=== PATIENT | male | born 1950 | race Caucasian/White ===

== ENCOUNTER 2020-08-07 19:30 | Inpatient (IN) | payer MEDICARE, OTHER ==
[2020-08-07 20:16] LABS: #Eosinphils 0.2 thou/uL (0.0-0.7); #Lymphocytes 0.9 thou/uL (1.20-3.40); #Monocytes 0.4 thou/uL (0.11-0.59); #Neutrophils 5.8 thou/uL (1.40-6.50); %Basophils 0.2 % (0.0-1.0); %Eosinophils 2.7 % (0.0-10.0); %Lymphocytes 12.7 % (21.0-51.0); %Monocytes 4.8 % (0.0-10.0); %Neutrophils 79.7 % (42.0-75.0); Hemoglobin 12.1 g/dL (14.0-18.0); Mean Corpuscular HGB CONC 33.2 g/dL (32.0-36.0); Mean Corpuscular Hemoglobin 29.7 pg (27.0-31.0); Mean Corpuscular Volume 89.5 fL (78.0-98.0); Mean Platelet Volume 10.1 fL (7.4-10.4); Platelet Count 244 thou/uL (130-400); RBC Distribution Width 14.2 % (11.5-14.5); Red Blood Cell (RBC) Count 4.09 mill/uL (4.70-6.10); White Blood Cell (WBC) Count 7.3 thou/uL (4.8-10.8)
[2020-08-07 20:22] LABS: INR-International Normal Ratio 1.1; PTT 34.1 sec (22.9-36.1); Prothrombin Time 14.5 sec (12.0-14.7)
[2020-08-07 20:32] LABS: ALT (SGPT) 36 U/L (8-55); AST (SGOT) 24 U/L (5-34); Albumin 3.6 g/dL (3.4-4.8); Alkaline Phosphatase 100 U/L (40-110); Anion Gap 16 mmol/L (10-20); BUN (Urea Nitrogen) 16 mg/dL (8.4-25.7); Bilirubin, Total 0.6 mg/dL (0.2-1.2); Calc. Creatinine Clearance 0 mL/min (70-130); Calcium 9.3 mg/dL (7.8-10.44); Carbon Dioxide 17 mmol/L (23-31); Chloride 108 mmol/L (98-107); Glucose 122 mg/dL (80-115); Lipase 39 U/L (8-78); Potassium 4.4 mmol/L (3.5-5.1); Protein, Total 6.6 g/dL (5.8-8.1); Sodium 137 mmol/L (136-145)
[2020-08-07 20:58] LABS: CKMB 2.1 ng/mL (0-6.6)
[2020-08-07] MEDS ORDERED: Dextrose 5% in Water 1,000 ML IV PRN (23:16)
[2020-08-07] MEDS ORDERED: Dextrose 50% Abboject 50 ML SYRINGE SLOW IVP PRN (23:16)
[2020-08-07] MEDS ORDERED: Ondansetron PF 4 MG/2 ML Vial IVP PRN (23:16)
[2020-08-07] MEDS ORDERED: Acetaminophen 325 MG TAB ONE (23:44)
[2020-08-07] MEDS ORDERED: Sodium Bicarbonate Tab 325 MG TAB PO SCH (23:45)
[2020-08-07] MEDS ORDERED: HYDROmorphone 0.5 MG/0.5 ML SYRINGE SLOW IVP SCH (23:45)
[2020-08-07] MEDS ORDERED: Aspirin Chewable 81 MG TAB PO SCH (23:45)
[2020-08-07] MEDS ORDERED: Furosemide 40 MG/4 ML VIAL SLOW IVP SCH (23:45)
[2020-08-07 23:50] LABS: Troponin I 1.153 ng/mL (< 0.028)
[2020-08-08] MEDS: Nitroglycerin 2% Ointment 1 INCH/1 GM Packet TOP SCH ×4 (01:24→23:52)
[2020-08-08 02:36] LABS: Creatinine, Urine 39.28 mg/dL (63-166)
[2020-08-08 03:15] LABS: #Basophils 0.1 thou/uL (0.0-0.2); #Eosinphils 0.2 thou/uL (0.0-0.7); #Monocytes 0.4 thou/uL (0.11-0.59); #Neutrophils 5.6 thou/uL (1.40-6.50); %Eosinophils 2.9 % (0.0-10.0); %Lymphocytes 14.2 % (21.0-51.0); %Monocytes 5.5 % (0.0-10.0); %Neutrophils 76.4 % (42.0-75.0); Hemoglobin 11.2 g/dL (14.0-18.0); Mean Corpuscular HGB CONC 34.2 g/dL (32.0-36.0); Mean Corpuscular Hemoglobin 30.3 pg (27.0-31.0); Mean Corpuscular Volume 88.6 fL (78.0-98.0); Mean Platelet Volume 9.6 fL (7.4-10.4); Platelet Count 236 thou/uL (130-400); RBC Distribution Width 14.2 % (11.5-14.5); White Blood Cell (WBC) Count 7.3 thou/uL (4.8-10.8)
[2020-08-08 03:42] LABS: Anion Gap 15 mmol/L (10-20); BUN (Urea Nitrogen) 17 mg/dL (8.4-25.7); Calc. Creatinine Clearance 58 mL/min (70-130); Calcium 9.4 mg/dL (7.8-10.44); Carbon Dioxide 20 mmol/L (23-31); Cardiac Risk 4.7 (Less than 4.5); Chloride 106 mmol/L (98-107); Cholesterol 122 mg/dl (< 200 Desired); Glucose 182 mg/dL (80-115); HDL Cholesterol 26 mg/dL (>60 Neg Risk); LDL Cholesterol, Calculated 68 mg/dL; Potassium 3.3 mmol/L (3.5-5.1); Sodium 138 mmol/L (136-145); Triglycerides 140 mg/dL (Less than 150)
[2020-08-08 03:43] LABS: Troponin I 1.176 ng/mL (< 0.028)
[2020-08-08] MEDS: HYDROcodone/Acetaminophen 5/325 mg Tablet PO PRN ×3 (06:00→23:48)
[2020-08-08] MEDS: Famotidine 20 MG TAB PO SCH ×2 (08:48→21:32)
[2020-08-08] MEDS: Fenofibrate 48 MG TAB PO SCH (08:49)
[2020-08-08] MEDS: Rosuvastatin 20 MG TAB PO SCH (08:49)
[2020-08-08] MEDS: Sodium Bicarbonate Tab 325 MG TAB PO SCH ×3 (08:49→21:31)
[2020-08-08] MEDS: Atenolol 50 MG TAB PO SCH (08:49)
[2020-08-08] MEDS: TICAGRELOR 90 MG TABLET PO SCH ×2 (08:50→21:31)
[2020-08-08] MEDS: Amiodarone 200 MG TAB PO SCH (08:50)
[2020-08-08] MEDS: glipiZIDE 5 MG TAB PO SCH ×2 (08:50→16:25)
[2020-08-08 09:00] LABS: SARS-CoV-2 PCR by NAA Not Detected (NotDetected)
[2020-08-08] MEDS ORDERED: HYDROcodone/Acetaminophen 5/325 mg Tablet ONE (12:57)
[2020-08-08] MEDS: Enoxaparin Sodium 40 MG/0.4 ML SYRINGE SC SCH (21:31)
[2020-08-09] MEDS: Melatonin 3 MG TAB PO PRN (01:47)
[2020-08-09 05:19] LABS: #Eosinphils 0.2 thou/uL (0.0-0.7); #Monocytes 0.4 thou/uL (0.11-0.59); #Neutrophils 5.2 thou/uL (1.40-6.50); %Basophils 0.5 % (0.0-1.0); %Eosinophils 3.1 % (0.0-10.0); %Lymphocytes 15.1 % (21.0-51.0); %Monocytes 6.3 % (0.0-10.0); %Neutrophils 75.1 % (42.0-75.0); Mean Corpuscular HGB CONC 32.8 g/dL (32.0-36.0); Mean Corpuscular Hemoglobin 28.9 pg (27.0-31.0); Mean Corpuscular Volume 87.9 fL (78.0-98.0); Mean Platelet Volume 9.9 fL (7.4-10.4); Platelet Count 242 thou/uL (130-400); RBC Distribution Width 14.2 % (11.5-14.5); Red Blood Cell (RBC) Count 3.81 mill/uL (4.70-6.10); White Blood Cell (WBC) Count 6.9 thou/uL (4.8-10.8)
[2020-08-09 05:43] LABS: Anion Gap 13 mmol/L (10-20); BUN (Urea Nitrogen) 14 mg/dL (8.4-25.7); Calc. Creatinine Clearance 72 mL/min (70-130); Calcium 9.2 mg/dL (7.8-10.44); Carbon Dioxide 23 mmol/L (23-31); Chloride 105 mmol/L (98-107); Glucose 171 mg/dL (80-115); Potassium 3.2 mmol/L (3.5-5.1); Sodium 138 mmol/L (136-145)
[2020-08-09] MEDS: HumaLOG 300 UNITS/3 ML VIAL SC PRN ×4 (06:19→21:31)
[2020-08-09] MEDS: HYDROcodone/Acetaminophen 5/325 mg Tablet PO PRN ×2 (06:19→13:27)
[2020-08-09 07:41] LABS: Hemoglobin A1c 8.3 % (4.0-6.0)
[2020-08-09] MEDS: glipiZIDE 5 MG TAB PO SCH ×2 (09:36→16:29)
[2020-08-09] MEDS: Atenolol 50 MG TAB PO SCH (09:37)
[2020-08-09] MEDS: Amiodarone 200 MG TAB PO SCH (09:37)
[2020-08-09] MEDS: Fenofibrate 48 MG TAB PO SCH (09:37)
[2020-08-09] MEDS: Famotidine 20 MG TAB PO SCH ×2 (09:37→21:31)
[2020-08-09] MEDS: Enoxaparin Sodium 40 MG/0.4 ML SYRINGE SC SCH ×2 (09:37→21:31)
[2020-08-09] MEDS: Nitroglycerin 2% Ointment 1 INCH/1 GM Packet TOP SCH ×2 (09:37→15:39)
[2020-08-09] MEDS: Sodium Bicarbonate Tab 325 MG TAB PO SCH ×2 (09:38→15:39)
[2020-08-09] MEDS: Rosuvastatin 20 MG TAB PO SCH (09:38)
[2020-08-09] MEDS: Acetaminophen 500 MG TAB PO PRN (18:19)
[2020-08-09] MEDS ORDERED: Potassium Chloride 20 MEQ TAB PO SCH (19:30)
[2020-08-09] MEDS: Temazepam 15 MG CAP PO PRN (21:31)
[2020-08-10] MEDS: Acetaminophen 500 MG TAB PO PRN ×3 (00:48→21:26)
[2020-08-10] MEDS: Nitroglycerin 2% Ointment 1 INCH/1 GM Packet TOP SCH ×4 (00:48→23:50)
[2020-08-10 05:51] LABS: Anion Gap 12 mmol/L (10-20); BUN (Urea Nitrogen) 13 mg/dL (8.4-25.7); Calc. Creatinine Clearance 74 mL/min (70-130); Calcium 9.2 mg/dL (7.8-10.44); Carbon Dioxide 25 mmol/L (23-31); Chloride 106 mmol/L (98-107); Glucose 134 mg/dL (80-115); Potassium 4.1 mmol/L (3.5-5.1); Sodium 139 mmol/L (136-145)
[2020-08-10] MEDS: HYDROcodone/Acetaminophen 5/325 mg Tablet PO PRN ×3 (07:57→23:49)
[2020-08-10] MEDS: Carvedilol 6.25 MG TAB PO SCH ×2 (09:00→16:28)
[2020-08-10] MEDS: glipiZIDE 5 MG TAB PO SCH ×2 (09:00→16:28)
[2020-08-10] MEDS: Amiodarone 200 MG TAB PO SCH (09:01)
[2020-08-10] MEDS: Enoxaparin Sodium 40 MG/0.4 ML SYRINGE SC SCH ×2 (09:01→21:26)
[2020-08-10] MEDS: Aspirin 81 mg Enteric Coated Tablet PO SCH (09:01)
[2020-08-10] MEDS: Rosuvastatin 20 MG TAB PO SCH (09:01)
[2020-08-10] MEDS: Famotidine 20 MG TAB PO SCH ×2 (09:01→21:25)
[2020-08-10] MEDS: Fenofibrate 48 MG TAB PO SCH (09:01)
[2020-08-10] MEDS: HumaLOG 300 UNITS/3 ML VIAL SC PRN ×2 (10:46→17:08)
[2020-08-10] MEDS: Temazepam 15 MG CAP PO PRN (21:26)
[2020-08-11] MEDS: Melatonin 3 MG TAB PO PRN ×2 (02:11→22:05)
[2020-08-11] MEDS: Acetaminophen 500 MG TAB PO PRN ×2 (02:11→22:05)
[2020-08-11] MEDS: HYDROcodone/Acetaminophen 5/325 mg Tablet PO PRN ×2 (04:28→10:24)
[2020-08-11] MEDS: HumaLOG 300 UNITS/3 ML VIAL SC PRN ×2 (04:28→17:22)
[2020-08-11 05:44] LABS: Anion Gap 13 mmol/L (10-20); BUN (Urea Nitrogen) 16 mg/dL (8.4-25.7); Calc. Creatinine Clearance 66 mL/min (70-130); Calcium 8.9 mg/dL (7.8-10.44); Carbon Dioxide 23 mmol/L (23-31); Chloride 106 mmol/L (98-107); Glucose 139 mg/dL (80-115); Potassium 4.4 mmol/L (3.5-5.1); Sodium 138 mmol/L (136-145)
[2020-08-11] MEDS ORDERED: Communication Order-Pharmacy FS SCH (06:00)
[2020-08-11] MEDS: Rosuvastatin 20 MG TAB PO SCH (08:32)
[2020-08-11] MEDS: Aspirin 81 mg Enteric Coated Tablet PO SCH (08:32)
[2020-08-11] MEDS: glipiZIDE 5 MG TAB PO SCH ×2 (08:32→17:14)
[2020-08-11] MEDS: Furosemide 40 MG TAB PO SCH (08:32)
[2020-08-11] MEDS: Famotidine 20 MG TAB PO SCH ×2 (08:32→20:50)
[2020-08-11] MEDS: Carvedilol 6.25 MG TAB PO SCH ×2 (08:32→17:14)
[2020-08-11] MEDS: Amiodarone 200 MG TAB PO SCH (08:32)
[2020-08-11] MEDS: Fenofibrate 48 MG TAB PO SCH (08:33)
[2020-08-11] MEDS: Nitroglycerin 2% Ointment 1 INCH/1 GM Packet TOP SCH ×2 (08:33→17:14)
[2020-08-11] MEDS ORDERED: Enoxaparin Sodium 40 MG/0.4 ML SYRINGE SC SCH (09:00)
[2020-08-11] MEDS: HYDROcodone/Acetaminophen 7.5/325 mg Tablet PO PRN (18:40)
[2020-08-11] MEDS: Enoxaparin Sodium 100 MG/ML SYRINGE SC SCH (20:49)
[2020-08-11] MEDS: Temazepam 15 MG CAP PO PRN (22:14)
[2020-08-12] MEDS: Nitroglycerin 2% Ointment 1 INCH/1 GM Packet TOP SCH ×3 (00:11→17:04)
[2020-08-12] MEDS: HYDROcodone/Acetaminophen 7.5/325 mg Tablet PO PRN (01:04)
[2020-08-12] MEDS: Acetaminophen 500 MG TAB PO PRN ×4 (04:38→19:14)
[2020-08-12 05:38] LABS: Anion Gap 12 mmol/L (10-20); BUN (Urea Nitrogen) 18 mg/dL (8.4-25.7); Calc. Creatinine Clearance 65 mL/min (70-130); Calcium 9.2 mg/dL (7.8-10.44); Carbon Dioxide 27 mmol/L (23-31); Chloride 101 mmol/L (98-107); Glucose 160 mg/dL (80-115); Potassium 3.8 mmol/L (3.5-5.1); Sodium 136 mmol/L (136-145)
[2020-08-12] MEDS: HumaLOG 300 UNITS/3 ML VIAL SC PRN ×2 (06:42→13:59)
[2020-08-12] MEDS: Rosuvastatin 20 MG TAB PO SCH (09:00)
[2020-08-12] MEDS: Famotidine 20 MG TAB PO SCH ×2 (09:00→21:15)
[2020-08-12] MEDS: Aspirin 81 mg Enteric Coated Tablet PO SCH (09:02)
[2020-08-12] MEDS: Amiodarone 200 MG TAB PO SCH (09:03)
[2020-08-12] MEDS: glipiZIDE 5 MG TAB PO SCH ×2 (09:03→17:50)
[2020-08-12] MEDS: Carvedilol 6.25 MG TAB PO SCH ×2 (09:04→17:50)
[2020-08-12] MEDS: Furosemide 40 MG TAB PO SCH (09:04)
[2020-08-12] MEDS: Enoxaparin Sodium 100 MG/ML SYRINGE SC SCH ×2 (09:09→21:16)
[2020-08-12] MEDS: Fenofibrate 48 MG TAB PO SCH (09:17)
[2020-08-12] MEDS ORDERED: HumaLOG 300 UNITS/3 ML VIAL SC PRN (21:00)
[2020-08-12] MEDS: Temazepam 15 MG CAP PO PRN (21:28)
[2020-08-13] MEDS: Nitroglycerin 2% Ointment 1 INCH/1 GM Packet TOP SCH ×3 (00:58→16:45)
[2020-08-13] MEDS: Acetaminophen 500 MG TAB PO PRN ×4 (02:55→20:27)
[2020-08-13 06:15] LABS: Anion Gap 12 mmol/L (10-20); BUN (Urea Nitrogen) 19 mg/dL (8.4-25.7); Calc. Creatinine Clearance 63 mL/min (70-130); Calcium 8.9 mg/dL (7.8-10.44); Carbon Dioxide 26 mmol/L (23-31); Chloride 104 mmol/L (98-107); Glucose 160 mg/dL (80-115); Potassium 4.2 mmol/L (3.5-5.1); Sodium 138 mmol/L (136-145)
[2020-08-13] MEDS: HumaLOG 300 UNITS/3 ML VIAL SC PRN ×3 (06:21→17:42)
[2020-08-13] MEDS: HYDROcodone/Acetaminophen 7.5/325 mg Tablet PO PRN ×2 (06:26→14:02)
[2020-08-13] MEDS: Enoxaparin Sodium 100 MG/ML SYRINGE SC SCH ×2 (10:37→20:25)
[2020-08-13] MEDS: Famotidine 20 MG TAB PO SCH ×2 (10:44→20:21)
[2020-08-13] MEDS: Aspirin 81 mg Enteric Coated Tablet PO SCH (10:44)
[2020-08-13] MEDS: glipiZIDE 5 MG TAB PO SCH ×2 (10:44→16:45)
[2020-08-13] MEDS: Carvedilol 6.25 MG TAB PO SCH ×2 (10:44→16:45)
[2020-08-13] MEDS: Rosuvastatin 20 MG TAB PO SCH (10:44)
[2020-08-13] MEDS: Furosemide 40 MG TAB PO SCH (10:46)
[2020-08-13] MEDS: Amiodarone 200 MG TAB PO SCH (10:46)
[2020-08-13] MEDS: Fenofibrate 48 MG TAB PO SCH (10:46)
[2020-08-13] MEDS: Sodium Chloride 0.9% 1,000 ML IV SCH (10:50)
[2020-08-13] MEDS: Lorazepam 0.5 MG TAB PO PRN ×2 (11:50→20:26)
[2020-08-13] MEDS: Temazepam 15 MG CAP PO PRN (20:26)
[2020-08-14] MEDS: Sodium Chloride 0.9% 1,000 ML IV SCH (00:30)
[2020-08-14] MEDS: Nitroglycerin 2% Ointment 1 INCH/1 GM Packet TOP SCH ×2 (00:30→20:34)
[2020-08-14] MEDS: Acetaminophen 500 MG TAB PO PRN (02:06)
[2020-08-14] MEDS: Carvedilol 6.25 MG TAB PO SCH (04:45)
[2020-08-14] MEDS: Rosuvastatin 20 MG TAB PO SCH (04:45)
[2020-08-14] MEDS: Famotidine 20 MG TAB PO SCH (04:45)
[2020-08-14] MEDS: Fenofibrate 48 MG TAB PO SCH (04:45)
[2020-08-14] MEDS: Amiodarone 200 MG TAB PO SCH (04:45)
[2020-08-14] MEDS: Lorazepam 0.5 MG TAB PO PRN (04:46)
[2020-08-14] MEDS ORDERED: Lidocaine 5% Patch TD SCH (05:15)
[2020-08-14 05:42] LABS: #Eosinphils 0.1 thou/uL (0.0-0.7); #Lymphocytes 0.8 thou/uL (1.20-3.40); #Monocytes 0.4 thou/uL (0.11-0.59); #Neutrophils 2.7 thou/uL (1.40-6.50); %Basophils 0.7 % (0.0-1.0); %Eosinophils 3.3 % (0.0-10.0); %Lymphocytes 20.7 % (21.0-51.0); %Monocytes 10.4 % (0.0-10.0); Hemoglobin 10.4 g/dL (14.0-18.0); Mean Corpuscular HGB CONC 33.8 g/dL (32.0-36.0); Mean Corpuscular Hemoglobin 30.3 pg (27.0-31.0); Mean Corpuscular Volume 89.9 fL (78.0-98.0); Mean Platelet Volume 10.3 fL (7.4-10.4); Platelet Count 174 thou/uL (130-400); RBC Distribution Width 14.1 % (11.5-14.5); Red Blood Cell (RBC) Count 3.42 mill/uL (4.70-6.10); White Blood Cell (WBC) Count 4.1 thou/uL (4.8-10.8)
[2020-08-14] MEDS: Furosemide 40 MG TAB PO SCH (05:49)
[2020-08-14] MEDS: Enoxaparin Sodium 100 MG/ML SYRINGE SC SCH (05:50)
[2020-08-14] MEDS: glipiZIDE 5 MG TAB PO SCH (05:50)
[2020-08-14] MEDS: Aspirin 81 mg Enteric Coated Tablet PO SCH (05:50)
[2020-08-14 06:13] LABS: Anion Gap 10 mmol/L (10-20); BUN (Urea Nitrogen) 17 mg/dL (8.4-25.7); Calc. Creatinine Clearance 69 mL/min (70-130); Calcium 8.6 mg/dL (7.8-10.44); Carbon Dioxide 28 mmol/L (23-31); Chloride 106 mmol/L (98-107); Glucose 129 mg/dL (80-115); Potassium 4.1 mmol/L (3.5-5.1); Sodium 140 mmol/L (136-145)
[2020-08-14] MEDS ORDERED: Albumin 5% 500 ML ONE (06:30)
[2020-08-14] MEDS ORDERED: Fentanyl 250 MCG/5 ML VIAL ONE (06:39)
[2020-08-14] MEDS ORDERED: Midazolam HCl 5 mg/5 ml Vial ONE (06:39)
[2020-08-14] MEDS ORDERED: Dexmedetomidine 200 MCG/2 ML VIAL ONE ×2 (06:40→06:55)
[2020-08-14] MEDS ORDERED: Midazolam HCl 2 mg/2 ml Vial ONE (07:09)
[2020-08-14] MEDS ORDERED: Milrinone 10 MG/10 ML VIAL ONE (07:32)
[2020-08-14] MEDS ORDERED: Thrombin 5000 UNITS/5 ML VIAL ONE (07:56)
[2020-08-14] MEDS ORDERED: Papaverine 60 MG/2 ML VIAL ONE (07:56)
[2020-08-14] MEDS ORDERED: Vecuronium 10 MG VIAL ONE (07:56)
[2020-08-14] MEDS ORDERED: Potassium Chloride 60 MEQ/30 ML VIAL ONE (07:56)
[2020-08-14] MEDS ORDERED: Aminocaproic Acid 5 GM/20 ML VIAL ONE (07:56)
[2020-08-14] MEDS ORDERED: Mannitol 12.5 GM/50 ML ONE (07:56)
[2020-08-14] MEDS ORDERED: Magnesium Sulfate 1 GM/2 ML VIAL ONE (07:56)
[2020-08-14] MEDS ORDERED: Glycopyrrolate 0.2 MG/ML 5 ML SYRINGE ONE (07:56)
[2020-08-14] MEDS ORDERED: Nitroglycerin 50 MG/250 ML BOT ONE (07:56)
[2020-08-14] MEDS ORDERED: Heparin 5,000 UNITS/ML VIAL ONE (07:56)
[2020-08-14] MEDS ORDERED: Heparin 30,000 units/30 ml VIAL ONE (07:56)
[2020-08-14] MEDS ORDERED: Lidocaine 2% PF 100 mg/5 ml Syringe ONE (07:56)
[2020-08-14] MEDS ORDERED: Norepinephrine 4 MG/4 ML VIAL ONE (07:56)
[2020-08-14] MEDS ORDERED: Cardioplegic Soln 1,000 ML BAG ONE (07:56)
[2020-08-14] MEDS ORDERED: Calcium Chloride 1 GM/10 ML Abboject SYRINGE ONE (07:56)
[2020-08-14] MEDS ORDERED: Ondansetron PF 4 MG/2 ML Vial ONE (07:56)
[2020-08-14] MEDS ORDERED: Protamine Sulfate 250 MG/25 ML VIAL ONE (07:56)
[2020-08-14] MEDS ORDERED: Lidocaine 1% PF 5 ML VIAL ONE (07:56)
[2020-08-14] MEDS ORDERED: Sodium Bicarb 50 MEQ/50 ML Abboject 8.4% SYRINGE ONE (07:56)
[2020-08-14] MEDS ORDERED: PROPOFOL 200 MG/20 ML VIAL ONE (07:56)
[2020-08-14] MEDS ORDERED: Insulin Regular 300 UNITS/3 ML VIAL ONE (09:00)
[2020-08-14] MEDS ORDERED: Potassium Chloride 20 MEQ/100 ML PREMIX BAG IVPB PRN (11:57)
[2020-08-14] MEDS ORDERED: Promethazine HCl 25 MG/ML VIAL IM PRN (11:57)
[2020-08-14] MEDS ORDERED: Norepinephrine 8 MG/0.9% NS 250 ML IVPB PRN (11:57)
[2020-08-14] MEDS ORDERED: Mag-Al 1200 mg/1200 mg/30 ML UDCUP PO PRN (11:57)
[2020-08-14] MEDS ORDERED: niCARdipine 25 MG in Sodium Chloride 0.9% 250 ML 240 ML IVPB PRN (11:57)
[2020-08-14] MEDS ORDERED: hydrALAZINE 20 MG/ML VIAL SLOW IVP PRN (11:57)
[2020-08-14] MEDS ORDERED: Guaifenesin DM 100-10/5 ML UDCUP PO PRN (11:57)
[2020-08-14] MEDS ORDERED: Nitroglycerin 50 MG/250 ML BOT 250 ML IVPB PRN (11:57)
[2020-08-14] MEDS ORDERED: Bisacodyl 10 MG SUPP PR PRN (11:57)
[2020-08-14] MEDS ORDERED: Bisacodyl 5 MG TAB PO PRN (11:57)
[2020-08-14] MEDS ORDERED: Hetastarch 6% 500 ML 500 ML IVPB PRN (11:57)
[2020-08-14] MEDS ORDERED: Post-Op Insulin Drip Protocol IVPB ONE (11:57)
[2020-08-14] MEDS ORDERED: DOPamine 400 MG/D5W 250 ML 250 ML IVPB PRN (11:57)
[2020-08-14] MEDS ORDERED: HYDROcodone/Acetaminophen 5/325 mg Tablet PO PRN (11:57)
[2020-08-14 12:30] LABS: #Eosinphils 0.1 thou/uL (0.0-0.7); #Lymphocytes 0.8 thou/uL (1.20-3.40); #Monocytes 0.7 thou/uL (0.11-0.59); #Neutrophils 7.8 thou/uL (1.40-6.50); %Basophils 0.1 % (0.0-1.0); %Eosinophils 1.4 % (0.0-10.0); %Lymphocytes 8.4 % (21.0-51.0); %Monocytes 7.2 % (0.0-10.0); Hemoglobin 9.8 g/dL (14.0-18.0); Mean Corpuscular HGB CONC 32.8 g/dL (32.0-36.0); Mean Corpuscular Hemoglobin 29.6 pg (27.0-31.0); Mean Corpuscular Volume 90.2 fL (78.0-98.0); Mean Platelet Volume 9.6 fL (7.4-10.4); Platelet Count 164 thou/uL (130-400); RBC Distribution Width 13.9 % (11.5-14.5); Red Blood Cell (RBC) Count 3.31 mill/uL (4.70-6.10); White Blood Cell (WBC) Count 9.4 thou/uL (4.8-10.8)
[2020-08-14 12:34] LABS: Actual Bicarbonate (HCO3a) 23.7 mEq/L (22-28); Base Excess (BEa) -2.4 mEq/L (-2.0 to +3.0); CO2 Tension 46.7 mmHg (35.0-45.0); Calcium, Ionized (arterial) 1.13 mmol/L (1.12-1.30); Carboxyhemoglobin (COHb) 0.1 gm% (0.0-3.0); Hemoglobin (Hb) 10.3 g/dL (14.0-18.0); O2 Tension (PaO2), arterial 133.5 mmHg (> 80.0); Potassium - ABG Lab 4.02 mmol/L (3.70-5.30); pH, Arterial 7.32 (7.35-7.45)
[2020-08-14 12:37] LABS: ALV-art Gradient 235.925 mmHg (0-20); Puncture Site Arterial Line
[2020-08-14 12:38] LABS: INR-International Normal Ratio 1.3; Prothrombin Time 16.9 sec (12.0-14.7)
[2020-08-14 12:39] LABS: PTT 49.5 sec (22.9-36.1)
[2020-08-14 12:44] LABS: Anion Gap 8 mmol/L (10-20); BUN (Urea Nitrogen) 15 mg/dL (8.4-25.7); Calc. Creatinine Clearance 84 mL/min (70-130); Calcium 7.6 mg/dL (7.8-10.44); Carbon Dioxide 24 mmol/L (23-31); Chloride 113 mmol/L (98-107); Glucose 116 mg/dL (80-115); Potassium 4.1 mmol/L (3.5-5.1); Sodium 141 mmol/L (136-145)
[2020-08-14] MEDS ORDERED: HUMULIN R 100 UNITS in Sodium Chloride 0.9% 100 ML IVPB SCH (12:45)
[2020-08-14] MEDS ORDERED: Dextrose 50% Abboject 50 ML SYRINGE SLOW IVP PRN (12:45)
[2020-08-14] MEDS ORDERED: Insulin Regular 300 UNITS/3 ML VIAL SC PRN (12:45)
[2020-08-14] MEDS ORDERED: Dextrose 5% in Water 1,000 ML IV PRN (12:45)
[2020-08-14] MEDS: Lactated Ringer's 1,000 ML IV SCH (12:59)
[2020-08-14] MEDS: CEFAZOLIN 2 GM in Premix Bag 1 BAG IVPB SCH (15:28)
[2020-08-14] MEDS ORDERED: DOBUTamine 500 mg/250 ml 250 ML IVPB SCH (16:30)
[2020-08-14 16:40] LABS: Actual Bicarbonate (HCO3a) 21.7 mEq/L (22-28); Base Excess (BEa) -3.3 mEq/L (-2.0 to +3.0); CO2 Tension 38.5 mmHg (35.0-45.0); Calcium, Ionized (arterial) 1.12 mmol/L (1.12-1.30); Carboxyhemoglobin (COHb) 0.6 gm% (0.0-3.0); Hemoglobin (Hb) 10.5 g/dL (14.0-18.0); O2 Tension (PaO2), arterial 171.4 mmHg (> 80.0); Potassium - ABG Lab 4.39 mmol/L (3.70-5.30); pH, Arterial 7.37 (7.35-7.45)
[2020-08-14 16:43] LABS: ALV-art Gradient 65.675 mmHg (0-20); Puncture Site Arterial Line
[2020-08-14] MEDS ORDERED: Lidocaine Patch Removal TOP SCH (17:15)
[2020-08-14] MEDS: Acetaminophen 325 MG TAB PO PRN (17:35)
[2020-08-14] MEDS: Ondansetron PF 4 MG/2 ML Vial IVP PRN (17:37)
[2020-08-14 18:01] LABS: Hemoglobin 9.6 g/dL (14.0-18.0)
[2020-08-14 18:19] LABS: Potassium 4.4 mmol/L (3.5-5.1)
[2020-08-14] MEDS: HYDROcodone/Acetaminophen 5/325 mg Tablet PO PRN (20:18)
[2020-08-14] MEDS ORDERED: Famotidine/PF 20 mg/2ml Vial SLOW IVP SCH (21:00)
[2020-08-15] MEDS: HYDROcodone/Acetaminophen 5/325 mg Tablet PO PRN ×2 (00:41→19:28)
[2020-08-15] MEDS: CEFAZOLIN 2 GM in Premix Bag 1 BAG IVPB SCH ×2 (00:41→08:08)
[2020-08-15] MEDS ORDERED: Fentanyl 100 MCG/2 ML VIAL ONE (01:49)
[2020-08-15] MEDS ORDERED: Cyclobenzaprine 10 MG TAB PO PRN ×2 (01:54→02:45)
[2020-08-15] MEDS ORDERED: Fentanyl 100 MCG/2 ML VIAL SLOW IVP PRN ×2 (01:55→01:56)
[2020-08-15] MEDS: Lactated Ringer's 1,000 ML IV SCH (02:19)
[2020-08-15 03:50] LABS: #Lymphocytes 0.6 thou/uL (1.20-3.40); #Monocytes 0.7 thou/uL (0.11-0.59); #Neutrophils 5.8 thou/uL (1.40-6.50); %Basophils 0.4 % (0.0-1.0); %Eosinophils 0.3 % (0.0-10.0); %Lymphocytes 8.6 % (21.0-51.0); %Monocytes 9.8 % (0.0-10.0); %Neutrophils 80.9 % (42.0-75.0); Hemoglobin 8.9 g/dL (14.0-18.0); Mean Corpuscular HGB CONC 33.2 g/dL (32.0-36.0); Mean Corpuscular Volume 90.4 fL (78.0-98.0); Platelet Count 157 thou/uL (130-400); RBC Distribution Width 14.3 % (11.5-14.5); Red Blood Cell (RBC) Count 2.98 mill/uL (4.70-6.10); White Blood Cell (WBC) Count 7.1 thou/uL (4.8-10.8)
[2020-08-15 04:09] LABS: Anion Gap 10 mmol/L (10-20); BUN (Urea Nitrogen) 15 mg/dL (8.4-25.7); Calc. Creatinine Clearance 85 mL/min (70-130); Calcium 8.1 mg/dL (7.8-10.44); Carbon Dioxide 22 mmol/L (23-31); Chloride 108 mmol/L (98-107); Glucose 135 mg/dL (80-115); Potassium 4.3 mmol/L (3.5-5.1); Sodium 136 mmol/L (136-145)
[2020-08-15] MEDS: Fentanyl 100 MCG/2 ML VIAL SLOW IVP PRN ×7 (04:30→20:40)
[2020-08-15] MEDS ORDERED: Insulin Regular 300 UNITS/3 ML VIAL SC PRN (06:27)
[2020-08-15] MEDS ORDERED: DOBUTamine 500 mg/250 ml 250 ML IVPB SCH (06:29)
[2020-08-15] MEDS: glipiZIDE 5 MG TAB PO SCH ×2 (08:08→16:15)
[2020-08-15] MEDS: Famotidine 20 MG TAB PO SCH ×2 (08:39→20:39)
[2020-08-15] MEDS: Clopidogrel Bisulfate 75 MG TAB PO SCH (08:39)
[2020-08-15] MEDS: Lidocaine 5% Patch TD SCH (08:49)
[2020-08-15] MEDS ORDERED: Aspirin 325 MG TAB PO SCH (09:00)
[2020-08-15 10:38] LABS: Actual Bicarbonate (HCO3v) 26 mEq/L (22-28); Analyzer IN Cardio OR; Base Excess 0.7 mEq/L (-2.0 to +3.0); Calcium, Ionized (venous) 1.05 mmol/L (1.16-1.32); Chloride (VBG) 106 mmol/L (98-106); Hemoglobin (Hb) 8.2 g/dL (12.6-17.4); Potassium (VBG) 4.86 mmol/L (3.70-5.30); Sodium 135.9 mmol/L (133-146); pH (venous) 7.41 (7.32-7.43)
[2020-08-15 10:38] LABS: Actual Bicarbonate (HCO3a) 24.8 mEq/L (22-28); Analyzer IN Cardio OR; Base Excess (BEa) 1.3 mEq/L (-2.0 to +3.0); CO2 Tension 35.4 mmHg (35.0-45.0); Calcium, Ionized (arterial) 1.12 mmol/L (1.12-1.30); Carboxyhemoglobin (COHb) 0.5 gm% (0.0-3.0); Hemoglobin (Hb) 10.4 g/dL (14.0-18.0); O2 Tension (PaO2), arterial 331.2 mmHg (> 80.0); Potassium - ABG Lab 4.13 mmol/L (3.70-5.30); pH, Arterial 7.46 (7.35-7.45)
[2020-08-15 10:38] LABS: Actual Bicarbonate (HCO3a) 24.7 mEq/L (22-28); Analyzer IN Cardio OR; Base Excess (BEa) 0.9 mEq/L (-2.0 to +3.0); CO2 Tension 35.8 mmHg (35.0-45.0); Calcium, Ionized (arterial) 1.06 mmol/L (1.12-1.30); Carboxyhemoglobin (COHb) 0.6 gm% (0.0-3.0); Hemoglobin (Hb) 8.4 g/dL (14.0-18.0); O2 Tension (PaO2), arterial 382.9 mmHg (> 80.0); Potassium - ABG Lab 5.17 mmol/L (3.70-5.30); pH, Arterial 7.46 (7.35-7.45)
[2020-08-15 10:38] LABS: Actual Bicarbonate (HCO3a) 22.7 mEq/L (22-28); Analyzer IN Cardio OR; Base Excess (BEa) -1.3 mEq/L (-2.0 to +3.0); CO2 Tension 35.3 mmHg (35.0-45.0); Calcium, Ionized (arterial) 1.11 mmol/L (1.12-1.30); Carboxyhemoglobin (COHb) 0.2 gm% (0.0-3.0); Hemoglobin (Hb) 10.5 g/dL (14.0-18.0); O2 Tension (PaO2), arterial 426.5 mmHg (> 80.0); Potassium - ABG Lab 4.46 mmol/L (3.70-5.30); pH, Arterial 7.43 (7.35-7.45)
[2020-08-15 10:39] LABS: Puncture Site Arterial Line
[2020-08-15 10:39] LABS: Actual Bicarbonate (HCO3a) 23.2 mEq/L (22-28); Analyzer IN Cardio OR; CO2 Tension 35.6 mmHg (35.0-45.0); Calcium, Ionized (arterial) 1.16 mmol/L (1.12-1.30); Carboxyhemoglobin (COHb) 0.8 gm% (0.0-3.0); Hemoglobin (Hb) 7.4 g/dL (14.0-18.0); O2 Tension (PaO2), arterial 400.5 mmHg (> 80.0); Potassium - ABG Lab 4.31 mmol/L (3.70-5.30); pH, Arterial 7.43 (7.35-7.45)
[2020-08-15 10:39] LABS: Actual Bicarbonate (HCO3a) 24.1 mEq/L (22-28); Analyzer IN Cardio OR; Base Excess (BEa) -1.4 mEq/L (-2.0 to +3.0); CO2 Tension 43.4 mmHg (35.0-45.0); Calcium, Ionized (arterial) 1.15 mmol/L (1.12-1.30); Hemoglobin (Hb) 10.6 g/dL (14.0-18.0); O2 Tension (PaO2), arterial 364.6 mmHg (> 80.0); Potassium - ABG Lab 4.06 mmol/L (3.70-5.30); pH, Arterial 7.36 (7.35-7.45)
[2020-08-15 10:40] LABS: Puncture Site Arterial Line
[2020-08-15 10:40] LABS: Puncture Site Arterial Line
[2020-08-15 10:41] LABS: Puncture Site Arterial Line
[2020-08-15 10:41] LABS: Puncture Site Arterial Line
[2020-08-15] MEDS ORDERED: Atorvastatin Calcium 40 MG TAB PO SCH (21:00)
[2020-08-15] MEDS ORDERED: Transdermal Patch Removal TOP SCH (21:00)
[2020-08-16] MEDS: Fentanyl 100 MCG/2 ML VIAL SLOW IVP PRN ×9 (00:41→22:09)
[2020-08-16] MEDS ORDERED: Amiodarone 150 MG, Admixture Fee 1 EACH in Dextrose 5% in Water 100 ML IVPB SCH (02:00)
[2020-08-16] MEDS: Amiodarone 450 MG, Admixture Fee 1 EACH in Dextrose 5% in Water 250 ML IVPB SCH ×2 (02:33→08:36)
[2020-08-16 04:33] LABS: #Eosinphils 0.1 thou/uL (0.0-0.7); #Lymphocytes 0.6 thou/uL (1.20-3.40); #Monocytes 0.8 thou/uL (0.11-0.59); #Neutrophils 5.3 thou/uL (1.40-6.50); %Basophils 0.1 % (0.0-1.0); %Eosinophils 1.2 % (0.0-10.0); %Lymphocytes 9.4 % (21.0-51.0); %Monocytes 11.8 % (0.0-10.0); %Neutrophils 77.4 % (42.0-75.0); Hemoglobin 8.8 g/dL (14.0-18.0); Mean Corpuscular HGB CONC 33.5 g/dL (32.0-36.0); Mean Corpuscular Hemoglobin 30.4 pg (27.0-31.0); Mean Corpuscular Volume 90.7 fL (78.0-98.0); Mean Platelet Volume 10.6 fL (7.4-10.4); Platelet Count 132 thou/uL (130-400); Red Blood Cell (RBC) Count 2.89 mill/uL (4.70-6.10); White Blood Cell (WBC) Count 6.8 thou/uL (4.8-10.8)
[2020-08-16 04:56] LABS: Anion Gap 11 mmol/L (10-20); BUN (Urea Nitrogen) 10 mg/dL (8.4-25.7); Calc. Creatinine Clearance 95 mL/min (70-130); Calcium 8.7 mg/dL (7.8-10.44); Carbon Dioxide 23 mmol/L (23-31); Chloride 103 mmol/L (98-107); Glucose 183 mg/dL (80-115); Potassium 4.1 mmol/L (3.5-5.1); Sodium 133 mmol/L (136-145)
[2020-08-16] MEDS ORDERED: Bisacodyl 10 MG SUPP PR PRN (07:05)
[2020-08-16] MEDS ORDERED: Nitroglycerin 0.4 MG TAB (25 Tab Bottle) SL PRN (07:05)
[2020-08-16] MEDS ORDERED: Mineral Oil ENEMA PR PRN (07:05)
[2020-08-16] MEDS: Enoxaparin Sodium 30 MG/0.3 ML SYRINGE SC SCH ×2 (08:14→19:59)
[2020-08-16] MEDS: HYDROcodone/Acetaminophen 5/325 mg Tablet PO PRN (08:14)
[2020-08-16] MEDS: Aspirin 81 mg Enteric Coated Tablet PO SCH (08:15)
[2020-08-16] MEDS: Furosemide 40 MG TAB PO SCH (08:15)
[2020-08-16] MEDS: Clopidogrel Bisulfate 75 MG TAB PO SCH (08:15)
[2020-08-16] MEDS: Potassium Chloride 10 MEQ TAB PO SCH (08:15)
[2020-08-16] MEDS: Famotidine 20 MG TAB PO SCH ×2 (08:15→19:59)
[2020-08-16] MEDS: glipiZIDE 5 MG TAB PO SCH ×2 (08:15→15:53)
[2020-08-16] MEDS: Lidocaine 5% Patch TD SCH (08:16)
[2020-08-16] MEDS ORDERED: Clopidogrel Bisulfate 300 MG TAB PO SCH (11:30)
[2020-08-16] MEDS: Cyclobenzaprine 10 MG TAB PO PRN ×2 (11:49→22:10)
[2020-08-16] MEDS ORDERED: Dextrose 50% Abboject 50 ML SYRINGE SLOW IVP PRN (15:14)
[2020-08-16] MEDS ORDERED: Dextrose 5% in Water 1,000 ML IV PRN (15:14)
[2020-08-16] MEDS: Atorvastatin Calcium 20 MG TAB PO SCH (19:59)
[2020-08-17] MEDS: Fentanyl 100 MCG/2 ML VIAL SLOW IVP PRN ×9 (00:24→23:17)
[2020-08-17] MEDS: Amiodarone 450 MG, Admixture Fee 1 EACH in Dextrose 5% in Water 250 ML IVPB SCH ×2 (00:29→17:26)
[2020-08-17] MEDS: Cyclobenzaprine 10 MG TAB PO PRN ×2 (02:27→20:16)
[2020-08-17 04:45] LABS: #Eosinphils 0.1 thou/uL (0.0-0.7); #Lymphocytes 0.9 thou/uL (1.20-3.40); #Monocytes 0.7 thou/uL (0.11-0.59); #Neutrophils 4.6 thou/uL (1.40-6.50); %Eosinophils 1.8 % (0.0-10.0); %Lymphocytes 14.4 % (21.0-51.0); %Monocytes 10.9 % (0.0-10.0); %Neutrophils 72.9 % (42.0-75.0); Hemoglobin 9.6 g/dL (14.0-18.0); Mean Corpuscular HGB CONC 32.8 g/dL (32.0-36.0); Mean Corpuscular Hemoglobin 29.4 pg (27.0-31.0); Mean Corpuscular Volume 89.6 fL (78.0-98.0); Mean Platelet Volume 10.2 fL (7.4-10.4); Platelet Count 138 thou/uL (130-400); RBC Distribution Width 14.2 % (11.5-14.5); Red Blood Cell (RBC) Count 3.27 mill/uL (4.70-6.10); White Blood Cell (WBC) Count 6.3 thou/uL (4.8-10.8)
[2020-08-17 05:07] LABS: Anion Gap 14 mmol/L (10-20); BUN (Urea Nitrogen) 10 mg/dL (8.4-25.7); Calc. Creatinine Clearance 93 mL/min (70-130); Calcium 8.9 mg/dL (7.8-10.44); Carbon Dioxide 24 mmol/L (23-31); Chloride 103 mmol/L (98-107); Glucose 154 mg/dL (80-115); Potassium 3.8 mmol/L (3.5-5.1); Sodium 137 mmol/L (136-145)
[2020-08-17] MEDS: Carvedilol 3.125 MG TAB PO SCH ×2 (08:37→17:48)
[2020-08-17] MEDS: Potassium Chloride 10 MEQ TAB PO SCH (08:37)
[2020-08-17] MEDS: glipiZIDE 5 MG TAB PO SCH ×2 (08:37→16:43)
[2020-08-17] MEDS: Aspirin 81 mg Enteric Coated Tablet PO SCH (08:38)
[2020-08-17] MEDS: Enoxaparin Sodium 30 MG/0.3 ML SYRINGE SC SCH ×2 (08:38→20:23)
[2020-08-17] MEDS: Clopidogrel Bisulfate 75 MG TAB PO SCH (08:38)
[2020-08-17] MEDS: Lidocaine 5% Patch TD SCH (08:38)
[2020-08-17] MEDS: Famotidine 20 MG TAB PO SCH ×2 (08:38→20:22)
[2020-08-17] MEDS: Furosemide 40 MG TAB PO SCH (08:38)
[2020-08-17 09:12] LABS: Glucose 163 mg/dL (80-115)
[2020-08-17] MEDS: HumaLOG 300 UNITS/3 ML VIAL SC PRN (12:05)
[2020-08-17] MEDS: Acetaminophen 325 MG TAB PO PRN ×2 (12:07→17:48)
[2020-08-17] MEDS ORDERED: Potassium Chloride 20 MEQ TAB PO SCH (17:00)
[2020-08-17] MEDS: Atorvastatin Calcium 20 MG TAB PO SCH (20:22)
[2020-08-17] MEDS: HumuLIN 70/30 (300 UNITS/3 ML VIAL) SC SCH (20:23)
[2020-08-17] MEDS ORDERED: HumuLIN 70/30 (300 UNITS/3 ML VIAL) SC SCH (21:00)
[2020-08-18] MEDS: Fentanyl 100 MCG/2 ML VIAL SLOW IVP PRN ×7 (01:21→22:21)
[2020-08-18] MEDS: traMADol HCl 50 MG TAB PO PRN ×3 (01:21→22:20)
[2020-08-18] MEDS: HYDROcodone/Acetaminophen 10/325 mg Tablet PO PRN ×2 (02:15→17:14)
[2020-08-18] MEDS ORDERED: Fentanyl 100 MCG/2 ML VIAL SLOW IVP SCH (02:45)
[2020-08-18 05:20] LABS: Anion Gap 13 mmol/L (10-20); BUN (Urea Nitrogen) 16 mg/dL (8.4-25.7); Calc. Creatinine Clearance 77 mL/min (70-130); Calcium 8.9 mg/dL (7.8-10.44); Carbon Dioxide 25 mmol/L (23-31); Chloride 100 mmol/L (98-107); Glucose 146 mg/dL (80-115); Magnesium 1.9 mg/dL (1.6-2.6); Potassium 3.9 mmol/L (3.5-5.1); Sodium 134 mmol/L (136-145)
[2020-08-18] MEDS: HumaLOG 300 UNITS/3 ML VIAL SC PRN (06:12)
[2020-08-18] MEDS: Furosemide 40 MG TAB PO SCH (08:17)
[2020-08-18] MEDS: Famotidine 20 MG TAB PO SCH ×2 (08:17→20:22)
[2020-08-18] MEDS: Potassium Chloride 10 MEQ TAB PO SCH (08:17)
[2020-08-18] MEDS: Amiodarone 200 MG TAB PO SCH ×2 (08:17→20:22)
[2020-08-18] MEDS: Clopidogrel Bisulfate 75 MG TAB PO SCH (08:17)
[2020-08-18] MEDS: Lidocaine 5% Patch TD SCH (08:18)
[2020-08-18] MEDS: glipiZIDE 5 MG TAB PO SCH ×2 (08:18→16:21)
[2020-08-18] MEDS: Aspirin 81 mg Enteric Coated Tablet PO SCH (08:18)
[2020-08-18] MEDS: Carvedilol 3.125 MG TAB PO SCH ×2 (08:18→16:28)
[2020-08-18] MEDS: Enoxaparin Sodium 30 MG/0.3 ML SYRINGE SC SCH ×2 (08:19→20:20)
[2020-08-18] MEDS: HumuLIN 70/30 (300 UNITS/3 ML VIAL) SC SCH ×2 (08:24→20:22)
[2020-08-18] MEDS: Polyethylene Glycol 3350 17 GM Packet PO SCH (08:44)
[2020-08-18] MEDS ORDERED: Lisinopril 5 MG TAB PO SCH (09:00)
[2020-08-18 11:07] LABS: Glucose 141 mg/dL (80-115)
[2020-08-18] MEDS ORDERED: Sodium Chloride 0.9% 500 ML IVPB SCH (16:15)
[2020-08-18] MEDS: Atorvastatin Calcium 20 MG TAB PO SCH (20:22)
[2020-08-18] MEDS: Acetaminophen 325 MG TAB PO PRN (20:22)
[2020-08-18] MEDS: Cyclobenzaprine 10 MG TAB PO PRN (20:23)
[2020-08-19] MEDS: Bisacodyl 5 MG TAB PO PRN ×3 (00:25→21:12)
[2020-08-19] MEDS: HYDROcodone/Acetaminophen 10/325 mg Tablet PO PRN ×2 (00:25→05:37)
[2020-08-19] MEDS: Fentanyl 100 MCG/2 ML VIAL SLOW IVP PRN ×8 (00:26→23:28)
[2020-08-19] MEDS: traMADol HCl 50 MG TAB PO PRN (03:54)
[2020-08-19] MEDS: Amiodarone 200 MG TAB PO SCH ×2 (08:56→21:12)
[2020-08-19] MEDS: Potassium Chloride 10 MEQ TAB PO SCH (08:56)
[2020-08-19] MEDS: Clopidogrel Bisulfate 75 MG TAB PO SCH (08:56)
[2020-08-19] MEDS: glipiZIDE 5 MG TAB PO SCH ×2 (08:56→16:18)
[2020-08-19] MEDS: Famotidine 20 MG TAB PO SCH ×2 (08:56→21:11)
[2020-08-19] MEDS: Furosemide 40 MG TAB PO SCH (08:56)
[2020-08-19] MEDS: Aspirin 81 mg Enteric Coated Tablet PO SCH (08:56)
[2020-08-19] MEDS: Carvedilol 3.125 MG TAB PO SCH ×2 (08:57→17:26)
[2020-08-19] MEDS: Lidocaine 5% Patch TD SCH (08:57)
[2020-08-19] MEDS: Enoxaparin Sodium 30 MG/0.3 ML SYRINGE SC SCH ×2 (08:57→21:12)
[2020-08-19] MEDS: HumuLIN 70/30 (300 UNITS/3 ML VIAL) SC SCH ×2 (08:57→21:12)
[2020-08-19] MEDS: Polyethylene Glycol 3350 17 GM Packet PO SCH ×3 (08:57→16:19)
[2020-08-19] MEDS: Lisinopril 5 MG TAB PO SCH (08:57)
[2020-08-19] MEDS: Acetaminophen 325 MG TAB PO PRN (16:18)
[2020-08-19] MEDS: Atorvastatin Calcium 20 MG TAB PO SCH (21:12)
[2020-08-19] MEDS: Cyclobenzaprine 10 MG TAB PO PRN (21:29)
[2020-08-19] MEDS: Temazepam 15 MG CAP PO PRN (21:29)
[2020-08-20] MEDS: Amiodarone 200 MG TAB PO SCH ×2 (08:37→21:44)
[2020-08-20] MEDS: Carvedilol 3.125 MG TAB PO SCH ×2 (08:37→16:45)
[2020-08-20] MEDS: glipiZIDE 5 MG TAB PO SCH ×2 (08:37→16:45)
[2020-08-20] MEDS: Aspirin 81 mg Enteric Coated Tablet PO SCH (08:37)
[2020-08-20] MEDS: Famotidine 20 MG TAB PO SCH ×2 (08:37→21:44)
[2020-08-20] MEDS: Clopidogrel Bisulfate 75 MG TAB PO SCH (08:37)
[2020-08-20] MEDS: Lidocaine 5% Patch TD SCH (08:37)
[2020-08-20] MEDS: Polyethylene Glycol 3350 17 GM Packet PO SCH (08:37)
[2020-08-20] MEDS ORDERED: Apixaban 2.5 MG TAB PO SCH (09:00)
[2020-08-20] MEDS: Fentanyl 100 MCG/2 ML VIAL SLOW IVP PRN (09:00)
[2020-08-20] MEDS: Lisinopril 5 MG TAB PO SCH (09:02)
[2020-08-20] MEDS: HumuLIN 70/30 (300 UNITS/3 ML VIAL) SC SCH ×2 (09:17→21:45)
[2020-08-20] MEDS: HYDROcodone/Acetaminophen 10/325 mg Tablet PO PRN ×3 (13:36→23:27)
[2020-08-20] MEDS: Bisacodyl 5 MG TAB PO PRN (18:36)
[2020-08-20] MEDS ORDERED: oxyCODONE ER 10 MG TAB PO SCH (21:00)
[2020-08-20] MEDS: Senokot S 8.6-50 MG TAB PO SCH (21:44)
[2020-08-20] MEDS: Atorvastatin Calcium 20 MG TAB PO SCH (21:44)
[2020-08-20] MEDS: oxyCODONE ER 10 MG TAB PO SCH (21:44)
[2020-08-20] MEDS: Temazepam 15 MG CAP PO PRN (21:50)
[2020-08-21] MEDS: HYDROcodone/Acetaminophen 10/325 mg Tablet PO PRN ×4 (03:35→21:19)
[2020-08-21] MEDS: oxyCODONE ER 10 MG TAB PO SCH ×3 (05:48→20:21)
[2020-08-21] MEDS: Amiodarone 200 MG TAB PO SCH ×2 (08:47→20:21)
[2020-08-21] MEDS: Lidocaine 5% Patch TD SCH (08:48)
[2020-08-21] MEDS: Famotidine 20 MG TAB PO SCH ×2 (08:48→20:21)
[2020-08-21] MEDS: Polyethylene Glycol 3350 17 GM Packet PO SCH (08:48)
[2020-08-21] MEDS: Aspirin 81 mg Enteric Coated Tablet PO SCH (08:49)
[2020-08-21] MEDS: Senokot S 8.6-50 MG TAB PO SCH ×2 (08:49→20:21)
[2020-08-21] MEDS: Clopidogrel Bisulfate 75 MG TAB PO SCH (08:49)
[2020-08-21] MEDS: Carvedilol 3.125 MG TAB PO SCH ×2 (08:49→17:19)
[2020-08-21] MEDS: glipiZIDE 5 MG TAB PO SCH ×2 (08:50→17:18)
[2020-08-21] MEDS: Lisinopril 5 MG TAB PO SCH (08:50)
[2020-08-21] MEDS: HumuLIN 70/30 (300 UNITS/3 ML VIAL) SC SCH ×2 (08:51→20:24)
[2020-08-21] MEDS: Bisacodyl 5 MG TAB PO PRN (17:19)
[2020-08-21] MEDS: Atorvastatin Calcium 20 MG TAB PO SCH (20:21)
[2020-08-22] MEDS: HYDROcodone/Acetaminophen 10/325 mg Tablet PO PRN ×3 (00:08→17:06)
[2020-08-22] MEDS: oxyCODONE ER 10 MG TAB PO SCH ×3 (06:00→21:29)
[2020-08-22] MEDS: Lisinopril 5 MG TAB PO SCH (08:21)
[2020-08-22] MEDS: Carvedilol 3.125 MG TAB PO SCH ×2 (08:21→17:07)
[2020-08-22] MEDS: Amiodarone 200 MG TAB PO SCH ×2 (08:21→21:29)
[2020-08-22] MEDS: glipiZIDE 5 MG TAB PO SCH ×2 (08:21→17:07)
[2020-08-22] MEDS: Aspirin 81 mg Enteric Coated Tablet PO SCH (08:21)
[2020-08-22] MEDS: Senokot S 8.6-50 MG TAB PO SCH ×2 (08:21→21:29)
[2020-08-22] MEDS: Famotidine 20 MG TAB PO SCH ×2 (08:21→21:29)
[2020-08-22] MEDS: Polyethylene Glycol 3350 17 GM Packet PO SCH (08:22)
[2020-08-22] MEDS: Clopidogrel Bisulfate 75 MG TAB PO SCH (08:22)
[2020-08-22] MEDS: Lidocaine 5% Patch TD SCH (09:23)
[2020-08-22] MEDS: HumuLIN 70/30 (300 UNITS/3 ML VIAL) SC SCH ×2 (09:24→21:30)
[2020-08-22] MEDS: Apixaban 5 MG TAB PO SCH (21:29)
[2020-08-22] MEDS: Atorvastatin Calcium 20 MG TAB PO SCH (21:29)
[2020-08-23] MEDS: HYDROcodone/Acetaminophen 10/325 mg Tablet PO PRN ×3 (00:49→18:23)
[2020-08-23] MEDS: Temazepam 15 MG CAP PO PRN ×2 (03:13→20:46)
[2020-08-23] MEDS: oxyCODONE ER 10 MG TAB PO SCH ×3 (05:34→22:09)
[2020-08-23 08:26] VITALS: BMI 29.4
[2020-08-23] MEDS: glipiZIDE 5 MG TAB PO SCH (08:53)
[2020-08-23] MEDS: Polyethylene Glycol 3350 17 GM Packet PO SCH (08:56)
[2020-08-23] MEDS: Lidocaine 5% Patch TD SCH (08:56)
[2020-08-23] MEDS: Senokot S 8.6-50 MG TAB PO SCH ×2 (08:56→20:46)
[2020-08-23] MEDS: Famotidine 20 MG TAB PO SCH ×2 (08:56→20:46)
[2020-08-23] MEDS: Apixaban 5 MG TAB PO SCH ×2 (08:57→20:46)
[2020-08-23] MEDS: HumuLIN 70/30 (300 UNITS/3 ML VIAL) SC SCH ×2 (08:57→20:47)
[2020-08-23] MEDS: Carvedilol 3.125 MG TAB PO SCH ×2 (08:57→18:13)
[2020-08-23] MEDS: Lisinopril 5 MG TAB PO SCH (08:57)
[2020-08-23] MEDS: Amiodarone 200 MG TAB PO SCH ×2 (08:57→20:46)
[2020-08-23] MEDS: Clopidogrel Bisulfate 75 MG TAB PO SCH (08:57)
[2020-08-23 09:08] LABS: #Eosinphils 0.3 thou/uL (0.0-0.7); #Monocytes 0.7 thou/uL (0.11-0.59); #Neutrophils 4.1 thou/uL (1.40-6.50); %Basophils 0.3 % (0.0-1.0); %Eosinophils 4.8 % (0.0-10.0); %Lymphocytes 16.6 % (21.0-51.0); %Monocytes 11.5 % (0.0-10.0); %Neutrophils 66.8 % (42.0-75.0); Hemoglobin 8.8 g/dL (14.0-18.0); Mean Corpuscular HGB CONC 31.7 g/dL (32.0-36.0); Mean Corpuscular Hemoglobin 28.3 pg (27.0-31.0); Mean Corpuscular Volume 89.2 fL (78.0-98.0); Mean Platelet Volume 8.8 fL (7.4-10.4); Platelet Count 218 thou/uL (130-400); RBC Distribution Width 14.3 % (11.5-14.5); Red Blood Cell (RBC) Count 3.09 mill/uL (4.70-6.10); White Blood Cell (WBC) Count 6.1 thou/uL (4.8-10.8)
[2020-08-23 09:30] LABS: Anion Gap 13 mmol/L (10-20); BUN (Urea Nitrogen) 16 mg/dL (8.4-25.7); Calc. Creatinine Clearance 65 mL/min (70-130); Calcium 9.3 mg/dL (7.8-10.44); Carbon Dioxide 26 mmol/L (23-31); Chloride 94 mmol/L (98-107); Glucose 126 mg/dL (80-115); Potassium 4.3 mmol/L (3.5-5.1); Sodium 129 mmol/L (136-145)
[2020-08-23] MEDS: Bisacodyl 5 MG TAB PO PRN (18:15)
[2020-08-23] MEDS ORDERED: Polyethylene Glycol 3350 17 GM Packet PO PRN (20:23)
[2020-08-23] MEDS: Atorvastatin Calcium 20 MG TAB PO SCH (20:46)
[2020-08-24] MEDS: HYDROcodone/Acetaminophen 10/325 mg Tablet PO PRN ×3 (00:40→12:30)
[2020-08-24] MEDS: oxyCODONE ER 10 MG TAB PO SCH ×2 (07:51→14:23)
[2020-08-24] MEDS ORDERED: Amiodarone 200 MG TAB PO SCH (09:00)
[2020-08-24] MEDS: Lidocaine 5% Patch TD SCH (09:16)
[2020-08-24] MEDS: Apixaban 5 MG TAB PO SCH (09:16)
[2020-08-24] MEDS: Polyethylene Glycol 3350 17 GM Packet PO SCH (09:16)
[2020-08-24] MEDS: Famotidine 20 MG TAB PO SCH (09:17)
[2020-08-24] MEDS: Clopidogrel Bisulfate 75 MG TAB PO SCH (09:17)
[2020-08-24] MEDS: Senokot S 8.6-50 MG TAB PO SCH (09:17)
[2020-08-24] MEDS: Lisinopril 5 MG TAB PO SCH (09:17)
[2020-08-24] MEDS: Carvedilol 3.125 MG TAB PO SCH ×2 (09:17→17:24)
[2020-08-24] MEDS: HumuLIN 70/30 (300 UNITS/3 ML VIAL) SC SCH (09:18)
[2020-08-24] MEDS ORDERED: Bisacodyl 5 MG TAB PO SCH (10:15)
[2020-08-24] MEDS: Ondansetron PF 4 MG/2 ML Vial IVP PRN (11:09)
[2020-08-24] MEDS ORDERED: Bisacodyl 10 MG SUPP PR SCH (11:30)
[2020-08-24 16:04] VITALS: BP 133/67; TEMP 97.4
== END 2020-08-24 18:00 | DRG 236 ==
LOC: ERS 19:30 → 2SE 22:32 → CCU 08-14 08:45 → 2NO 08-16 16:37
PROVIDERS: ADMIT Specialist; ATTEND Internal Medicine
PROC: 02100Z9 Bypass Coronary Artery, One Artery from Left Internal Mammary, Open Approach (ICD-10-PCS; principal; 2020-08-14)
PROC: 021109W Bypass Coronary Artery, Two Arteries from Aorta with Autologous Venous Tissue, Open Approach (ICD-10-PCS; 2020-08-14)
PROC: 06BQ4ZZ Excision of Left Saphenous Vein, Percutaneous Endoscopic Approach (ICD-10-PCS; 2020-08-14)
PROC: 5A1221Z Performance of Cardiac Output, Continuous (ICD-10-PCS; 2020-08-14)
DX: I21.4 Non-ST elevation (NSTEMI) myocardial infarction (principal); E87.2 Acidosis; N17.9 Acute kidney failure, unspecified; I47.2 Ventricular tachycardia; I42.9 Cardiomyopathy, unspecified; I50.22 Chronic systolic (congestive) heart failure; I13.0 Hypertensive heart and chronic kidney disease with heart failure and stage 1 through stage 4 chronic kidney disease, or unspecified chronic kidney disease; I25.110 Atherosclerotic heart disease of native coronary artery with unstable angina pectoris; I48.0 Paroxysmal atrial fibrillation; E11.22 Type 2 diabetes mellitus with diabetic chronic kidney disease; N18.30 Chronic kidney disease, stage 3 unspecified; G89.18 Other acute postprocedural pain; E78.2 Mixed hyperlipidemia; Z96.641 Presence of right artificial hip joint; Z20.822 Contact with and (suspected) exposure to COVID-19; E87.6 Hypokalemia; I95.9 Hypotension, unspecified; Z95.5 Presence of coronary angioplasty implant and graft; Z87.891 Personal history of nicotine dependence; Z88.8 Allergy status to other drugs, medicaments and biological substances; Z91.018 Allergy to other foods; Z79.82 Long term (current) use of aspirin; Z79.84 Long term (current) use of oral hypoglycemic drugs; Z79.01 Long term (current) use of anticoagulants; Z98.890 Other specified postprocedural states
CPT/HCPCS: 36415; 36416; 71045; 71275; 74176; 80048; 80053; 80061; 82553; 82570; 82805; 82947; 83036; 83690; 83735; 83880; 84300; 84443; 84484; 85025; 85610; 85730; 86850; 86900; 86901; 87081; 87635; 93005; 93010; 93306; 94002; 94150; J0282; J0690; J1170; J1250; J1642; J1644; J1650; J1815; J1940; J2001; J2150; J2250; J2260; J2405; J2440; J2704; J2720; J3010; J3370; J3475; J3480; J3490; J7030; J7070; P9045; S0017; S0028; U0003; U0005

== ENCOUNTER 2020-08-27 21:01 | Inpatient (IN) | payer MEDICARE, OTHER ==
[2020-08-27 21:48] LABS: #Eosinphils 0.1 thou/uL (0.0-0.7); #Lymphocytes 0.7 thou/uL (1.20-3.40); #Monocytes 0.5 thou/uL (0.11-0.59); #Neutrophils 3.5 thou/uL (1.40-6.50); %Basophils 0.7 % (0.0-1.0); %Eosinophils 2.3 % (0.0-10.0); %Lymphocytes 14.1 % (21.0-51.0); %Monocytes 11.1 % (0.0-10.0); %Neutrophils 71.9 % (42.0-75.0); Hemoglobin 9.7 g/dL (14.0-18.0); Mean Corpuscular HGB CONC 32.1 g/dL (32.0-36.0); Mean Corpuscular Hemoglobin 28.8 pg (27.0-31.0); Mean Corpuscular Volume 89.8 fL (78.0-98.0); Mean Platelet Volume 8.7 fL (7.4-10.4); Platelet Count 243 thou/uL (130-400); Red Blood Cell (RBC) Count 3.36 mill/uL (4.70-6.10); White Blood Cell (WBC) Count 4.9 thou/uL (4.8-10.8)
[2020-08-27] MEDS ORDERED: Furosemide 20 MG/2 ML VIAL ONE (21:53)
[2020-08-27] MEDS ORDERED: Fentanyl 100 MCG/2 ML VIAL ONE (22:11)
[2020-08-27 22:24] LABS: ALT (SGPT) 14 U/L (8-55); AST (SGOT) 15 U/L (5-34); Albumin 3.4 g/dL (3.4-4.8); Alkaline Phosphatase 98 U/L (40-110); Anion Gap 14 mmol/L (10-20); BUN (Urea Nitrogen) 12 mg/dL (8.4-25.7); Bilirubin, Total 0.7 mg/dL (0.2-1.2); Calc. Creatinine Clearance 0 mL/min (70-130); Calcium 9.4 mg/dL (7.8-10.44); Carbon Dioxide 28 mmol/L (23-31); Chloride 97 mmol/L (98-107); Globulin 3.1 g/dL (2.4-3.5); Glucose 207 mg/dL (80-115); Potassium 4.7 mmol/L (3.5-5.1); Protein, Total 6.5 g/dL (5.8-8.1); Sodium 134 mmol/L (136-145)
[2020-08-27 22:46] LABS: Bilirubin Negative (Negative); Blood, Urine Negative (Negative); Clarity Clear (Clear); Glucose, Urine (Dipstick) Normal (Negative); Ketone, Urine Negative (Negative); Leukocyte Negative Leu/uL (Negative); Nitrite Negative (Negative); Protein, Urine (Dipstick) Negative (Neg-Trace); Specific Gravity, Urine 1.006 (1.002-1.036); Urobilinogen Normal mg/dL (Less than 2)
[2020-08-28 01:33] VITALS: BMI 28.5
[2020-08-28 01:43] LABS: Troponin I 0.019 ng/mL (< 0.028)
[2020-08-28] MEDS ORDERED: Morphine 4 MG/ML VIAL SLOW IVP SCH (02:15)
[2020-08-28 02:30] LABS: SARS-CoV-2 NAA Rapid Test Not Detected (NotDetected)
[2020-08-28] MEDS ORDERED: Ondansetron PF 4 MG/2 ML Vial IVP PRN (04:14)
[2020-08-28] MEDS ORDERED: Acetaminophen 325 MG TAB PO PRN (04:14)
[2020-08-28] MEDS ORDERED: HYDROcodone/Acetaminophen 7.5/325 mg Tablet PO PRN (04:14)
[2020-08-28] MEDS ORDERED: Dextrose 50% Abboject 50 ML SYRINGE SLOW IVP PRN (04:20)
[2020-08-28] MEDS ORDERED: HumaLOG 300 UNITS/3 ML VIAL SC PRN ×2 (04:20)
[2020-08-28] MEDS ORDERED: Dextrose 5% in Water 1,000 ML IV PRN (04:20)
[2020-08-28 05:19] LABS: #Eosinphils 0.1 thou/uL (0.0-0.7); #Lymphocytes 0.8 thou/uL (1.20-3.40); #Monocytes 0.5 thou/uL (0.11-0.59); #Neutrophils 3.7 thou/uL (1.40-6.50); %Basophils 0.3 % (0.0-1.0); %Eosinophils 2.3 % (0.0-10.0); %Lymphocytes 14.8 % (21.0-51.0); %Monocytes 9.7 % (0.0-10.0); %Neutrophils 72.9 % (42.0-75.0); Hemoglobin 9.2 g/dL (14.0-18.0); Mean Corpuscular HGB CONC 31.9 g/dL (32.0-36.0); Mean Corpuscular Hemoglobin 28.6 pg (27.0-31.0); Mean Corpuscular Volume 89.5 fL (78.0-98.0); Mean Platelet Volume 8.7 fL (7.4-10.4); Platelet Count 239 thou/uL (130-400); RBC Distribution Width 14.7 % (11.5-14.5); Red Blood Cell (RBC) Count 3.21 mill/uL (4.70-6.10); White Blood Cell (WBC) Count 5.1 thou/uL (4.8-10.8)
[2020-08-28 05:42] LABS: Anion Gap 13 mmol/L (10-20); BUN (Urea Nitrogen) 10 mg/dL (8.4-25.7); Calc. Creatinine Clearance 63 mL/min (70-130); Calcium 8.9 mg/dL (7.8-10.44); Carbon Dioxide 26 mmol/L (23-31); Chloride 100 mmol/L (98-107); Glucose 125 mg/dL (80-115); Potassium 4.3 mmol/L (3.5-5.1); Sodium 135 mmol/L (136-145)
[2020-08-28 05:50] LABS: Troponin I 0.033 ng/mL (< 0.028)
[2020-08-28] MEDS ORDERED: Furosemide 20 MG/2 ML VIAL SLOW IVP SCH ×2 (06:00→08:46)
[2020-08-28] MEDS: HYDROcodone/Acetaminophen 5/325 mg Tablet PO PRN ×2 (06:20→13:25)
[2020-08-28] MEDS ORDERED: Amiodarone 200 MG TAB PO SCH (09:00)
[2020-08-28] MEDS ORDERED: Furosemide 40 MG/4 ML VIAL SLOW IVP SCH ×2 (09:00)
[2020-08-28] MEDS ORDERED: Aspirin Chewable 81 MG TAB PO SCH (09:00)
[2020-08-28] MEDS: Clopidogrel Bisulfate 75 MG TAB PO SCH (09:30)
[2020-08-28] MEDS: Apixaban 5 MG TAB PO SCH ×2 (09:30→21:06)
[2020-08-28] MEDS: Famotidine 20 MG TAB PO SCH ×2 (09:30→21:06)
[2020-08-28] MEDS: Isosorbide Mononitrate 20 MG TAB PO SCH ×2 (09:30→21:06)
[2020-08-28] MEDS: Carvedilol 3.125 MG TAB PO SCH ×2 (09:30→17:37)
[2020-08-28] MEDS: Amiodarone 200 MG TAB PO SCH (09:30)
[2020-08-28] MEDS: Morphine 4 MG/ML VIAL SLOW IVP PRN ×2 (09:54→21:07)
[2020-08-28] MEDS: Furosemide 40 MG/4 ML VIAL SLOW IVP SCH (15:05)
[2020-08-28] MEDS: Atorvastatin Calcium 20 MG TAB PO SCH (21:06)
[2020-08-29] MEDS: Morphine 4 MG/ML VIAL SLOW IVP PRN ×5 (01:39→21:38)
[2020-08-29 05:11] LABS: #Eosinphils 0.2 thou/uL (0.0-0.7); #Lymphocytes 0.8 thou/uL (1.20-3.40); #Monocytes 0.5 thou/uL (0.11-0.59); #Neutrophils 3.4 thou/uL (1.40-6.50); %Basophils 0.5 % (0.0-1.0); %Eosinophils 3.2 % (0.0-10.0); %Lymphocytes 16.7 % (21.0-51.0); %Monocytes 10.1 % (0.0-10.0); %Neutrophils 69.5 % (42.0-75.0); Mean Corpuscular Hemoglobin 28.6 pg (27.0-31.0); Mean Corpuscular Volume 89.2 fL (78.0-98.0); Mean Platelet Volume 8.5 fL (7.4-10.4); Platelet Count 245 thou/uL (130-400); RBC Distribution Width 14.8 % (11.5-14.5); Red Blood Cell (RBC) Count 3.16 mill/uL (4.70-6.10); White Blood Cell (WBC) Count 4.9 thou/uL (4.8-10.8)
[2020-08-29 05:29] LABS: Anion Gap 14 mmol/L (10-20); BUN (Urea Nitrogen) 13 mg/dL (8.4-25.7); Calc. Creatinine Clearance 46 mL/min (70-130); Calcium 8.8 mg/dL (7.8-10.44); Carbon Dioxide 27 mmol/L (23-31); Chloride 100 mmol/L (98-107); Glucose 142 mg/dL (80-115); Sodium 137 mmol/L (136-145)
[2020-08-29] MEDS: Furosemide 40 MG/4 ML VIAL SLOW IVP SCH (06:03)
[2020-08-29] MEDS: Clopidogrel Bisulfate 75 MG TAB PO SCH (08:47)
[2020-08-29] MEDS: Apixaban 5 MG TAB PO SCH ×2 (08:47→20:46)
[2020-08-29] MEDS: Amiodarone 200 MG TAB PO SCH (08:47)
[2020-08-29] MEDS: Carvedilol 3.125 MG TAB PO SCH ×2 (08:47→17:18)
[2020-08-29] MEDS: HYDROcodone/Acetaminophen 5/325 mg Tablet PO PRN (08:48)
[2020-08-29] MEDS: Famotidine 20 MG TAB PO SCH ×2 (08:48→20:47)
[2020-08-29] MEDS: Isosorbide Mononitrate 20 MG TAB PO SCH ×2 (08:48→20:47)
[2020-08-29 09:22] LABS: Hemoglobin 9.8 g/dL (14.0-18.0)
[2020-08-29] MEDS: Aspirin 81 mg Enteric Coated Tablet PO SCH (09:36)
[2020-08-29] MEDS: Atorvastatin Calcium 20 MG TAB PO SCH (20:46)
[2020-08-29] MEDS: Gabapentin 100 MG CAP PO SCH (20:46)
[2020-08-29] MEDS: Simethicone Chewable 80 MG TAB PO SCH (20:47)
[2020-08-29] MEDS: Senokot S 8.6-50 MG TAB PO SCH (20:47)
[2020-08-29] MEDS: HumuLIN 70/30 (300 UNITS/3 ML VIAL) SC SCH (21:07)
[2020-08-29] MEDS: Bisacodyl 10 MG SUPP PR SCH (21:08)
[2020-08-29] MEDS: Temazepam 15 MG CAP PO PRN (23:17)
[2020-08-30] MEDS: Morphine 4 MG/ML VIAL SLOW IVP PRN ×5 (01:31→22:09)
[2020-08-30 04:55] LABS: #Eosinphils 0.2 thou/uL (0.0-0.7); #Lymphocytes 0.8 thou/uL (1.20-3.40); #Monocytes 0.5 thou/uL (0.11-0.59); #Neutrophils 3.3 thou/uL (1.40-6.50); %Basophils 0.3 % (0.0-1.0); %Eosinophils 3.1 % (0.0-10.0); %Lymphocytes 17.1 % (21.0-51.0); %Monocytes 9.8 % (0.0-10.0); %Neutrophils 69.6 % (42.0-75.0); Mean Corpuscular HGB CONC 31.4 g/dL (32.0-36.0); Mean Corpuscular Volume 89.2 fL (78.0-98.0); Mean Platelet Volume 8.6 fL (7.4-10.4); Platelet Count 227 thou/uL (130-400); RBC Distribution Width 14.5 % (11.5-14.5); Red Blood Cell (RBC) Count 3.21 mill/uL (4.70-6.10); White Blood Cell (WBC) Count 4.8 thou/uL (4.8-10.8)
[2020-08-30] MEDS ORDERED: Furosemide 40 MG/4 ML VIAL SLOW IVP SCH (06:00)
[2020-08-30] MEDS ORDERED: Furosemide 20 MG/2 ML VIAL SLOW IVP SCH (06:00)
[2020-08-30 06:22] LABS: Anion Gap 15 mmol/L (10-20); BUN (Urea Nitrogen) 16 mg/dL (8.4-25.7); Calc. Creatinine Clearance 46 mL/min (70-130); Calcium 8.8 mg/dL (7.8-10.44); Carbon Dioxide 23 mmol/L (23-31); Chloride 103 mmol/L (98-107); Glucose 131 mg/dL (80-115); Sodium 137 mmol/L (136-145)
[2020-08-30] MEDS: Famotidine 20 MG TAB PO SCH ×2 (08:22→20:11)
[2020-08-30] MEDS: Bisacodyl 10 MG SUPP PR SCH ×2 (08:22→20:12)
[2020-08-30] MEDS: Amiodarone 200 MG TAB PO SCH (08:22)
[2020-08-30] MEDS: Carvedilol 3.125 MG TAB PO SCH ×2 (08:22→17:38)
[2020-08-30] MEDS: Apixaban 5 MG TAB PO SCH ×2 (08:22→20:11)
[2020-08-30] MEDS: Aspirin 81 mg Enteric Coated Tablet PO SCH (08:22)
[2020-08-30] MEDS: Gabapentin 100 MG CAP PO SCH ×2 (08:22→20:11)
[2020-08-30] MEDS: Clopidogrel Bisulfate 75 MG TAB PO SCH (08:22)
[2020-08-30] MEDS: Senokot S 8.6-50 MG TAB PO SCH ×2 (08:23→20:11)
[2020-08-30] MEDS: HumuLIN 70/30 (300 UNITS/3 ML VIAL) SC SCH ×2 (08:23→20:12)
[2020-08-30] MEDS: Polyethylene Glycol 3350 17 GM Packet PO SCH (08:23)
[2020-08-30] MEDS: Simethicone Chewable 80 MG TAB PO SCH ×3 (08:23→20:11)
[2020-08-30] MEDS: Lidocaine 5% Patch TD SCH (08:23)
[2020-08-30] MEDS: Isosorbide Mononitrate 20 MG TAB PO SCH ×2 (08:23→20:10)
[2020-08-30 09:51] LABS: Hemoglobin 9.1 g/dL (14.0-18.0)
[2020-08-30] MEDS: Atorvastatin Calcium 20 MG TAB PO SCH (20:11)
[2020-08-30] MEDS: Temazepam 15 MG CAP PO PRN (20:23)
[2020-08-31] MEDS: Morphine 4 MG/ML VIAL SLOW IVP PRN ×5 (02:56→20:20)
[2020-08-31 05:13] LABS: #Eosinphils 0.2 thou/uL (0.0-0.7); #Lymphocytes 0.7 thou/uL (1.20-3.40); #Monocytes 0.4 thou/uL (0.11-0.59); #Neutrophils 3.5 thou/uL (1.40-6.50); %Basophils 0.6 % (0.0-1.0); %Eosinophils 4.1 % (0.0-10.0); %Lymphocytes 14.7 % (21.0-51.0); %Monocytes 9.2 % (0.0-10.0); %Neutrophils 71.4 % (42.0-75.0); Hemoglobin 9.1 g/dL (14.0-18.0); Mean Corpuscular HGB CONC 31.7 g/dL (32.0-36.0); Mean Corpuscular Hemoglobin 28.1 pg (27.0-31.0); Mean Corpuscular Volume 88.6 fL (78.0-98.0); Mean Platelet Volume 8.5 fL (7.4-10.4); Platelet Count 223 thou/uL (130-400); RBC Distribution Width 14.6 % (11.5-14.5); Red Blood Cell (RBC) Count 3.23 mill/uL (4.70-6.10); White Blood Cell (WBC) Count 4.8 thou/uL (4.8-10.8)
[2020-08-31 05:26] LABS: Anion Gap 14 mmol/L (10-20); BUN (Urea Nitrogen) 13 mg/dL (8.4-25.7); Calc. Creatinine Clearance 70 mL/min (70-130); Calcium 8.8 mg/dL (7.8-10.44); Carbon Dioxide 23 mmol/L (23-31); Chloride 106 mmol/L (98-107); Glucose 119 mg/dL (80-115); Potassium 4.2 mmol/L (3.5-5.1); Sodium 139 mmol/L (136-145)
[2020-08-31] MEDS: Apixaban 5 MG TAB PO SCH ×2 (09:23→20:17)
[2020-08-31] MEDS: Amiodarone 200 MG TAB PO SCH (09:23)
[2020-08-31] MEDS: Aspirin 81 mg Enteric Coated Tablet PO SCH (09:23)
[2020-08-31] MEDS: Simethicone Chewable 80 MG TAB PO SCH ×3 (09:23→20:17)
[2020-08-31] MEDS: Gabapentin 100 MG CAP PO SCH ×2 (09:24→20:17)
[2020-08-31] MEDS: Bisacodyl 10 MG SUPP PR SCH ×2 (09:24→20:18)
[2020-08-31] MEDS: Famotidine 20 MG TAB PO SCH ×2 (09:25→20:18)
[2020-08-31] MEDS: Lidocaine 5% Patch TD SCH ×2 (09:25→09:31)
[2020-08-31] MEDS: Isosorbide Mononitrate 20 MG TAB PO SCH ×2 (09:25→20:17)
[2020-08-31] MEDS: Clopidogrel Bisulfate 75 MG TAB PO SCH (09:25)
[2020-08-31] MEDS: Senokot S 8.6-50 MG TAB PO SCH ×2 (09:25→20:18)
[2020-08-31] MEDS: Carvedilol 3.125 MG TAB PO SCH ×2 (09:25→17:14)
[2020-08-31] MEDS: Polyethylene Glycol 3350 17 GM Packet PO SCH (09:26)
[2020-08-31] MEDS: HumuLIN 70/30 (300 UNITS/3 ML VIAL) SC SCH ×2 (09:26→20:24)
[2020-08-31 10:31] LABS: Hemoglobin 9.3 g/dL (14.0-18.0)
[2020-08-31] MEDS: Furosemide 20 MG TAB PO SCH (14:27)
[2020-08-31] MEDS ORDERED: ALPRAZolam 0.25 MG TAB PO SCH (15:15)
[2020-08-31] MEDS: ALPRAZolam 0.25 MG TAB PO PRN (20:17)
[2020-08-31] MEDS: Temazepam 15 MG CAP PO PRN (20:18)
[2020-08-31] MEDS: Atorvastatin Calcium 20 MG TAB PO SCH (20:18)
[2020-09-01] MEDS: Morphine 4 MG/ML VIAL SLOW IVP PRN ×4 (00:30→12:14)
[2020-09-01] MEDS: HYDROcodone/Acetaminophen 5/325 mg Tablet PO PRN (05:07)
[2020-09-01 05:25] LABS: Anion Gap 10 mmol/L (10-20); BUN (Urea Nitrogen) 16 mg/dL (8.4-25.7); Calc. Creatinine Clearance 64 mL/min (70-130); Calcium 8.9 mg/dL (7.8-10.44); Carbon Dioxide 26 mmol/L (23-31); Chloride 105 mmol/L (98-107); Glucose 196 mg/dL (80-115); Potassium 3.9 mmol/L (3.5-5.1); Sodium 137 mmol/L (136-145)
[2020-09-01] MEDS: Amiodarone 200 MG TAB PO SCH (08:08)
[2020-09-01] MEDS: Aspirin 81 mg Enteric Coated Tablet PO SCH (08:08)
[2020-09-01] MEDS: Famotidine 20 MG TAB PO SCH (08:08)
[2020-09-01] MEDS: Clopidogrel Bisulfate 75 MG TAB PO SCH (08:09)
[2020-09-01] MEDS: Isosorbide Mononitrate 20 MG TAB PO SCH (08:09)
[2020-09-01] MEDS: Furosemide 20 MG TAB PO SCH ×2 (08:09→15:08)
[2020-09-01] MEDS: Apixaban 5 MG TAB PO SCH (08:09)
[2020-09-01] MEDS: Carvedilol 3.125 MG TAB PO SCH (08:09)
[2020-09-01] MEDS: Gabapentin 100 MG CAP PO SCH (08:09)
[2020-09-01] MEDS: Simethicone Chewable 80 MG TAB PO SCH ×2 (08:09→15:08)
[2020-09-01] MEDS: Polyethylene Glycol 3350 17 GM Packet PO SCH (08:10)
[2020-09-01] MEDS: Lidocaine 5% Patch TD SCH (08:10)
[2020-09-01] MEDS: HumuLIN 70/30 (300 UNITS/3 ML VIAL) SC SCH (08:10)
[2020-09-01] MEDS: Senokot S 8.6-50 MG TAB PO SCH (08:10)
[2020-09-01] MEDS: Bisacodyl 10 MG SUPP PR SCH (08:10)
[2020-09-01] MEDS: ALPRAZolam 0.25 MG TAB PO PRN (08:15)
[2020-09-01 09:26] LABS: Hemoglobin 10.1 g/dL (14.0-18.0)
[2020-09-01 17:47] VITALS: BP 118/64; TEMP 98.5
[2020-09-01] MEDS ORDERED: Apixaban 5 MG TAB PO SCH (21:00)
== END 2020-09-01 17:20 | disposition home or self-care (01) | DRG 291 ==
LOC: ERS 21:01 → 2NO 08-28 00:01
PROVIDERS: ADMIT Internal Medicine; ATTEND Family Medicine
DX: I13.0 Hypertensive heart and chronic kidney disease with heart failure and stage 1 through stage 4 chronic kidney disease, or unspecified chronic kidney disease (principal); I50.23 Acute on chronic systolic (congestive) heart failure; N17.9 Acute kidney failure, unspecified; I25.10 Atherosclerotic heart disease of native coronary artery without angina pectoris; I48.0 Paroxysmal atrial fibrillation; E11.22 Type 2 diabetes mellitus with diabetic chronic kidney disease; E78.2 Mixed hyperlipidemia; N18.30 Chronic kidney disease, stage 3 unspecified; R07.89 Other chest pain; Z20.822 Contact with and (suspected) exposure to COVID-19; D64.9 Anemia, unspecified; Z88.5 Allergy status to narcotic agent; Z79.01 Long term (current) use of anticoagulants; Z79.4 Long term (current) use of insulin; Z79.899 Other long term (current) drug therapy; Z91.018 Allergy to other foods; I25.2 Old myocardial infarction; Z95.1 Presence of aortocoronary bypass graft; Z95.5 Presence of coronary angioplasty implant and graft
CPT/HCPCS: 36415; 36416; 71045; 80048; 80053; 81003; 83690; 83880; 85014; 85018; 85025; 87086; 93005; 93306; 93798; 96374; 96375; J1815; J1940; J2270; J3010; U0002

== ENCOUNTER 2020-09-25 22:52 | Inpatient (IN) | payer MEDICARE, OTHER ==
[2020-09-25] MEDS ORDERED: Fentanyl 100 MCG/2 ML VIAL ONE (23:42)
[2020-09-26 01:20] LABS: Troponin I Less than 0.010 ng/mL (< 0.028)
[2020-09-26] MEDS ORDERED: Fentanyl 100 MCG/2 ML VIAL ONE ×2 (02:51→05:26)
[2020-09-26] MEDS ORDERED: HYDROcodone/Acetaminophen 10/325 mg Tablet ONE (03:10)
[2020-09-26] MEDS: HYDROcodone/Acetaminophen 10/325 mg Tablet PO SCH ×2 (03:21→03:30)
[2020-09-26 03:43] LABS: Troponin I 0.017 ng/mL (< 0.028)
[2020-09-26] MEDS ORDERED: Acetaminophen 325 MG TAB PO PRN (04:14)
[2020-09-26] MEDS ORDERED: Nitroglycerin 2% Ointment 1 INCH/1 GM Packet ONE (04:28)
[2020-09-26] MEDS ORDERED: Fentanyl 100 MCG/2 ML VIAL SLOW IVP SCH (04:30)
[2020-09-26] MEDS: Fentanyl 100 MCG/2 ML VIAL SLOW IVP SCH ×2 (05:45→05:47)
[2020-09-26] MEDS ORDERED: HYDROcodone/Acetaminophen 10/325 mg Tablet PO PRN (07:34)
[2020-09-26] MEDS: Ondansetron PF 4 MG/2 ML Vial IVP PRN ×2 (09:45→16:12)
[2020-09-26] MEDS: Clopidogrel Bisulfate 75 MG TAB PO SCH (10:12)
[2020-09-26] MEDS: Amiodarone 200 MG TAB PO SCH (10:12)
[2020-09-26] MEDS: Aspirin 81 mg Enteric Coated Tablet PO SCH (10:12)
[2020-09-26] MEDS: Rosuvastatin 20 MG TAB PO SCH (10:12)
[2020-09-26] MEDS: HYDROcodone/Acetaminophen 10/325 mg Tablet PO PRN ×2 (10:13→22:24)
[2020-09-26] MEDS: Sodium Chloride 0.9% 1,000 ML IV SCH ×2 (10:20→22:54)
[2020-09-26] MEDS ORDERED: Communication Order-Pharmacy FS SCH (10:30)
[2020-09-26 11:14] LABS: SARS-CoV-2 PCR by NAA Not Detected (NotDetected)
[2020-09-26] MEDS ORDERED: Promethazine HCl 25 MG in Sodium Chloride 0.9% 50 ML IVPB PRN (15:29)
[2020-09-26] MEDS ORDERED: Dextrose 5% in Water 1,000 ML IV PRN (17:24)
[2020-09-26] MEDS ORDERED: HumaLOG 300 UNITS/3 ML VIAL SC PRN (17:24)
[2020-09-26] MEDS ORDERED: Dextrose 50% Abboject 50 ML SYRINGE SLOW IVP PRN (17:24)
[2020-09-26] MEDS ORDERED: Temazepam 15 MG CAP PO PRN (22:33)
[2020-09-27] MEDS: Clopidogrel Bisulfate 75 MG TAB PO SCH (05:29)
[2020-09-27] MEDS: Amiodarone 200 MG TAB PO SCH (05:29)
[2020-09-27] MEDS: Aspirin 81 mg Enteric Coated Tablet PO SCH (05:29)
[2020-09-27] MEDS: Rosuvastatin 20 MG TAB PO SCH (05:29)
[2020-09-27 05:30] LABS: #Basophils 0.1 thou/uL (0.0-0.2); #Eosinphils 0.2 thou/uL (0.0-0.7); #Lymphocytes 0.7 thou/uL (1.20-3.40); #Monocytes 0.4 thou/uL (0.11-0.59); #Neutrophils 2.3 thou/uL (1.40-6.50); %Basophils 1.8 % (0.0-1.0); %Eosinophils 5.8 % (0.0-10.0); %Lymphocytes 18.6 % (21.0-51.0); %Monocytes 10.3 % (0.0-10.0); %Neutrophils 63.6 % (42.0-75.0); Mean Corpuscular HGB CONC 31.8 g/dL (32.0-36.0); Mean Corpuscular Hemoglobin 26.7 pg (27.0-31.0); Mean Corpuscular Volume 84.2 fL (78.0-98.0); Mean Platelet Volume 10.9 fL (7.4-10.4); Platelet Count 144 thou/uL (130-400); RBC Distribution Width 14.7 % (11.5-14.5); Red Blood Cell (RBC) Count 4.48 mill/uL (4.70-6.10); White Blood Cell (WBC) Count 3.7 thou/uL (4.8-10.8)
[2020-09-27 05:51] LABS: Anion Gap 12 mmol/L (10-20); BUN (Urea Nitrogen) 13 mg/dL (8.4-25.7); Calc. Creatinine Clearance 68 mL/min (70-130); Calcium 9.3 mg/dL (7.8-10.44); Carbon Dioxide 21 mmol/L (23-31); Chloride 109 mmol/L (98-107); Glucose 105 mg/dL (80-115); Potassium 4.2 mmol/L (3.5-5.1); Sodium 138 mmol/L (136-145)
[2020-09-27] MEDS ORDERED: Lidocaine 1% (PF) 30 ML VIAL ONE (06:48)
[2020-09-27] MEDS ORDERED: Fentanyl 100 MCG/2 ML VIAL ONE ×2 (08:00→08:34)
[2020-09-27] MEDS ORDERED: Midazolam HCl 2 mg/2 ml Vial ONE (08:00)
[2020-09-27] MEDS ORDERED: Iopamidol 370 76% 100 ML VIAL ONE (08:50)
[2020-09-27] MEDS ORDERED: Sodium Chloride 0.9% 200 ML IV PRN (09:53)
[2020-09-27] MEDS ORDERED: Nitroglycerin 0.4 MG TAB (25 Tab Bottle) SL PRN (09:53)
[2020-09-27] MEDS ORDERED: Acetaminophen/Codeine 30-300mg Tablet PO PRN ×2 (09:53)
[2020-09-27 12:53] VITALS: TEMP 97.8
[2020-09-27 14:04] VITALS: BMI 25.7
[2020-09-27 16:04] VITALS: BP 120/56
[2020-09-28] MEDS ORDERED: Carvedilol 3.125 MG TAB PO SCH (17:00)
== END 2020-09-27 17:27 | disposition home or self-care (01) | DRG 287 ==
LOC: ERS 22:52 → ERHOLD 09-26 00:05 → 2SW 09-26 06:02 → OBSVTOIN 09-26 10:46
PROVIDERS: ADMIT Internal Medicine; ATTEND Internal Medicine
PROC: 4A023N7 Measurement of Cardiac Sampling and Pressure, Left Heart, Percutaneous Approach (ICD-10-PCS; principal; 2020-09-27)
PROC: B2131ZZ Fluoroscopy of Multiple Coronary Artery Bypass Grafts using Low Osmolar Contrast (ICD-10-PCS; 2020-09-27)
PROC: B2111ZZ Fluoroscopy of Multiple Coronary Arteries using Low Osmolar Contrast (ICD-10-PCS; 2020-09-27)
PROC: B2151ZZ Fluoroscopy of Left Heart using Low Osmolar Contrast (ICD-10-PCS; 2020-09-27)
DX: I25.110 Atherosclerotic heart disease of native coronary artery with unstable angina pectoris (principal); I13.0 Hypertensive heart and chronic kidney disease with heart failure and stage 1 through stage 4 chronic kidney disease, or unspecified chronic kidney disease; I50.22 Chronic systolic (congestive) heart failure; I48.0 Paroxysmal atrial fibrillation; E11.22 Type 2 diabetes mellitus with diabetic chronic kidney disease; E78.5 Hyperlipidemia, unspecified; N18.30 Chronic kidney disease, stage 3 unspecified; Z96.651 Presence of right artificial knee joint; R94.31 Abnormal electrocardiogram [ECG] [EKG]; M25.551 Pain in right hip; Z20.822 Contact with and (suspected) exposure to COVID-19; Z98.890 Other specified postprocedural states; Z87.891 Personal history of nicotine dependence; Z95.1 Presence of aortocoronary bypass graft; Z88.5 Allergy status to narcotic agent; Z88.8 Allergy status to other drugs, medicaments and biological substances; Z91.018 Allergy to other foods; Z79.82 Long term (current) use of aspirin; Z79.899 Other long term (current) drug therapy; Z90.49 Acquired absence of other specified parts of digestive tract
CPT/HCPCS: 36415; 36416; 76942; 80048; 84484; 85025; 85379; 93005; 93459; 96374; 96376; 99152; G0378; J2001; J2250; J2405; J2550; J3010; Q9967; U0003; U0005

== ENCOUNTER 2021-08-07 05:35 | Emergency (ER) | payer MEDICARE, OTHER ==
[2021-08-07 06:09] LABS: #Basophils 0.1 thou/uL (0.0-0.2); #Lymphocytes 0.4 thou/uL (1.20-3.40); #Monocytes 0.5 thou/uL (0.11-0.59); #Neutrophils 9.8 thou/uL (1.40-6.50); %Basophils 0.6 % (0.0-1.0); %Eosinophils 0.4 % (0.0-10.0); %Lymphocytes 3.5 % (21.0-51.0); %Monocytes 4.5 % (0.0-10.0); Hemoglobin 14.2 g/dL (14.0-18.0); Mean Corpuscular HGB CONC 34.1 g/dL (32.0-36.0); Mean Corpuscular Hemoglobin 31.4 pg (27.0-31.0); Mean Corpuscular Volume 92.1 fL (78.0-98.0); Mean Platelet Volume 9.8 fL (7.4-10.4); Platelet Count 149 thou/uL (130-400); RBC Distribution Width 15.2 % (11.5-14.5); Red Blood Cell (RBC) Count 4.51 mill/uL (4.70-6.10); White Blood Cell (WBC) Count 10.7 thou/uL (4.8-10.8)
[2021-08-07 06:31] LABS: ALT (SGPT) 66 U/L (8-55); AST (SGOT) 26 U/L (5-34); Albumin 3.8 g/dL (3.4-4.8); Alkaline Phosphatase 69 U/L (40-110); Anion Gap 16 mmol/L (10-20); BUN (Urea Nitrogen) 37 mg/dL (8.4-25.7); Bilirubin, Total 0.8 mg/dL (0.2-1.2); Calc. Creatinine Clearance 0 mL/min (70-130); Calcium 8.6 mg/dL (7.8-10.44); Carbon Dioxide 17 mmol/L (23-31); Chloride 109 mmol/L (98-107); Globulin 2.1 g/dL (2.4-3.5); Glucose 252 mg/dL (80-115); Potassium 4.5 mmol/L (3.5-5.1); Protein, Total 5.9 g/dL (5.8-8.1); Sodium 137 mmol/L (136-145)
[2021-08-07] MEDS ORDERED: Morphine 4 MG/ML VIAL ONE (08:10)
[2021-08-07 09:57] LABS: Troponin I 0.015 ng/mL (< 0.028)
[2021-08-07] MEDS ORDERED: Morphine 2 MG/ML VIAL ONE (10:19)
== END 2021-08-07 11:49 | disposition home or self-care (01) ==
LOC: ERS 05:35
DX: R07.89 Other chest pain (principal); I12.9 Hypertensive chronic kidney disease with stage 1 through stage 4 chronic kidney disease, or unspecified chronic kidney disease; E11.22 Type 2 diabetes mellitus with diabetic chronic kidney disease; N18.9 Chronic kidney disease, unspecified; E11.40 Type 2 diabetes mellitus with diabetic neuropathy, unspecified; E78.5 Hyperlipidemia, unspecified; Z79.01 Long term (current) use of anticoagulants; Z79.84 Long term (current) use of oral hypoglycemic drugs; Z79.899 Other long term (current) drug therapy
CPT/HCPCS: 71045; 80053; 84484 ×2; 85025; 93005; 96374; 96376; 99285; J2270; 36415

== ENCOUNTER 2021-08-18 20:46 | Inpatient (IN) | payer MEDICARE, OTHER ==
[2021-08-18] MEDS ORDERED: HYDROcodone/Acetaminophen 5/325 mg Tablet ONE (21:49)
[2021-08-18 21:52] LABS: Band 3 % (5-11); Hemoglobin 14.3 g/dL (14.0-18.0); Lymphocytes 13 % (21-51); MDiff Complete? YES; Mean Corpuscular Hemoglobin 31.2 pg (27.0-31.0); Mean Corpuscular Volume 91.8 fL (78.0-98.0); Mean Platelet Volume 9.7 fL (7.4-10.4); Monocytes 1 % (0-10); Neutrophil 83 % (42-75); Platelet Count 147 thou/uL (130-400); RBC Distribution Width 16.7 % (11.5-14.5); Red Blood Cell (RBC) Count 4.58 mill/uL (4.70-6.10); White Blood Cell (WBC) Count 9.4 thou/uL (4.8-10.8)
[2021-08-18 21:55] LABS: ALT (SGPT) 121 U/L (8-55); AST (SGOT) 53 U/L (5-34); Albumin 3.8 g/dL (3.4-4.8); Alkaline Phosphatase 69 U/L (40-110); Anion Gap 15 mmol/L (10-20); BUN (Urea Nitrogen) 27 mg/dL (8.4-25.7); Bilirubin, Total 1.2 mg/dL (0.2-1.2); Calc. Creatinine Clearance 0 mL/min (70-130); Calcium 8.7 mg/dL (7.8-10.44); Carbon Dioxide 20 mmol/L (23-31); Chloride 106 mmol/L (98-107); Glucose 317 mg/dL (80-115); Potassium 4.7 mmol/L (3.5-5.1); Protein, Total 5.8 g/dL (5.8-8.1); Sodium 136 mmol/L (136-145)
[2021-08-18] MEDS ORDERED: Dextrose 5% in Water 1,000 ML IV PRN (23:55)
[2021-08-18] MEDS ORDERED: Dextrose 50% Abboject 50 ML SYRINGE SLOW IVP PRN (23:55)
[2021-08-18] MEDS ORDERED: Nitroglycerin 0.4 MG TAB (25 Tab Bottle) SL PRN (23:55)
[2021-08-18] MEDS ORDERED: Ondansetron ODT 4 MG TAB PO PRN (23:55)
[2021-08-18] MEDS ORDERED: Ondansetron PF 4 MG/2 ML Vial IVP PRN (23:55)
[2021-08-19] MEDS ORDERED: Lorazepam 1 MG TAB ONE (00:18)
[2021-08-19] MEDS ORDERED: Morphine 4 MG/ML VIAL ONE (00:18)
[2021-08-19] MEDS ORDERED: Ondansetron ODT 4 MG TAB ONE (01:28)
[2021-08-19 02:17] VITALS: BMI 27.1
[2021-08-19] MEDS: Morphine 2 MG/ML VIAL SLOW IVP PRN ×4 (04:19→23:39)
[2021-08-19 04:30] LABS: #Eosinphils 0.1 thou/uL (0.0-0.7); #Lymphocytes 1.1 thou/uL (1.20-3.40); #Monocytes 0.5 thou/uL (0.11-0.59); #Neutrophils 5.5 thou/uL (1.40-6.50); %Basophils 0.3 % (0.0-1.0); %Lymphocytes 14.8 % (21.0-51.0); %Monocytes 7.3 % (0.0-10.0); %Neutrophils 76.6 % (42.0-75.0); Hemoglobin 13.4 g/dL (14.0-18.0); Mean Corpuscular HGB CONC 33.7 g/dL (32.0-36.0); Mean Corpuscular Hemoglobin 30.9 pg (27.0-31.0); Mean Platelet Volume 9.6 fL (7.4-10.4); Platelet Count 131 thou/uL (130-400); RBC Distribution Width 16.6 % (11.5-14.5); Red Blood Cell (RBC) Count 4.32 mill/uL (4.70-6.10); White Blood Cell (WBC) Count 7.2 thou/uL (4.8-10.8)
[2021-08-19 04:50] LABS: Anion Gap 12 mmol/L (10-20); BUN (Urea Nitrogen) 25 mg/dL (8.4-25.7); Calc. Creatinine Clearance 70 mL/min (70-130); Calcium 8.3 mg/dL (7.8-10.44); Carbon Dioxide 20 mmol/L (23-31); Chloride 106 mmol/L (98-107); Glucose 342 mg/dL (80-115); Potassium 4.4 mmol/L (3.5-5.1); Sodium 134 mmol/L (136-145)
[2021-08-19] MEDS: Sodium Chloride 0.9% 1,000 ML IV SCH ×2 (04:50→15:33)
[2021-08-19 04:55] LABS: Troponin I 0.019 ng/mL (< 0.028)
[2021-08-19] MEDS: HumaLOG 300 UNITS/3 ML VIAL SC PRN ×4 (05:29→20:23)
[2021-08-19] MEDS: traMADol HCl 50 MG TAB PO PRN ×2 (06:28→15:33)
[2021-08-19] MEDS ORDERED: Nitroglycerin 0.4 MG TAB (25 Tab Bottle) SL PRN (07:24)
[2021-08-19 07:38] LABS: Hemoglobin A1c 8.4 % (4.0-6.0)
[2021-08-19] MEDS: Carvedilol 6.25 MG TAB PO SCH ×2 (08:34→17:30)
[2021-08-19] MEDS: predniSONE 20 MG TAB PO SCH ×2 (08:34→17:30)
[2021-08-19] MEDS: Amiodarone 200 MG TAB PO SCH (08:35)
[2021-08-19] MEDS: Aspirin Chewable 81 MG TAB PO SCH (08:35)
[2021-08-19] MEDS: Apixaban 2.5 MG TAB PO SCH ×2 (08:35→19:32)
[2021-08-19] MEDS: Citalopram 20 MG TAB PO SCH (08:36)
[2021-08-19] MEDS: Atorvastatin Calcium 40 MG TAB PO SCH (08:36)
[2021-08-19] MEDS: Clopidogrel Bisulfate 75 MG TAB PO SCH (08:36)
[2021-08-19] MEDS: Gabapentin 100 MG CAP PO SCH ×2 (08:37→19:32)
[2021-08-19] MEDS: Multivitamin W/ Minerals 1 TAB PO SCH (08:38)
[2021-08-19] MEDS: Colchicine 0.6 MG TAB PO SCH ×2 (08:58→19:32)
[2021-08-19] MEDS ORDERED: Enoxaparin Sodium 40 MG/0.4 ML SYRINGE SC SCH (09:00)
[2021-08-19] MEDS ORDERED: Iopamidol-370 76% 500 ML 1 ML ONE (10:57)
[2021-08-19 15:59] LABS: SARS-CoV-2 PCR by NAA Not Detected (NotDetected)
[2021-08-19] MEDS ORDERED: HYDROmorphone 0.5 MG/0.5 ML SYRINGE SLOW IVP PRN (18:13)
[2021-08-19] MEDS: ALPRAZolam 0.25 MG TAB PO PRN (19:38)
[2021-08-19] MEDS: Insulin Glargine 30 UNITS/0.3 ML VIAL SC SCH (20:23)
[2021-08-20] MEDS: Morphine 2 MG/ML VIAL SLOW IVP PRN ×4 (03:36→20:08)
[2021-08-20] MEDS: HumaLOG 300 UNITS/3 ML VIAL SC PRN ×3 (05:50→20:49)
[2021-08-20] MEDS: traMADol HCl 50 MG TAB PO PRN ×2 (05:50→23:49)
[2021-08-20] MEDS: Carvedilol 6.25 MG TAB PO SCH ×2 (09:27→16:50)
[2021-08-20] MEDS: predniSONE 20 MG TAB PO SCH ×2 (09:28→16:50)
[2021-08-20] MEDS: Atorvastatin Calcium 40 MG TAB PO SCH (09:28)
[2021-08-20] MEDS: Aspirin Chewable 81 MG TAB PO SCH (09:28)
[2021-08-20] MEDS: Amiodarone 200 MG TAB PO SCH (09:28)
[2021-08-20] MEDS: Apixaban 2.5 MG TAB PO SCH ×2 (09:28→20:10)
[2021-08-20] MEDS: Colchicine 0.6 MG TAB PO SCH ×2 (09:29→20:49)
[2021-08-20] MEDS: Citalopram 20 MG TAB PO SCH (09:29)
[2021-08-20] MEDS: Clopidogrel Bisulfate 75 MG TAB PO SCH (09:29)
[2021-08-20] MEDS: Gabapentin 100 MG CAP PO SCH ×2 (09:29→20:10)
[2021-08-20] MEDS: Multivitamin W/ Minerals 1 TAB PO SCH (09:30)
[2021-08-20] MEDS: Sodium Chloride 0.9% 1,000 ML IV SCH (14:27)
[2021-08-20] MEDS: ALPRAZolam 0.25 MG TAB PO PRN (20:49)
[2021-08-20] MEDS: Temazepam 15 MG CAP PO PRN (21:26)
[2021-08-20] MEDS: Insulin Glargine 30 UNITS/0.3 ML VIAL SC SCH (21:26)
[2021-08-21] MEDS: Sodium Chloride 0.9% 1,000 ML IV SCH ×3 (01:11→20:39)
[2021-08-21] MEDS: Morphine 2 MG/ML VIAL SLOW IVP PRN ×5 (01:11→20:15)
[2021-08-21] MEDS: HumaLOG 300 UNITS/3 ML VIAL SC PRN ×3 (05:51→20:45)
[2021-08-21] MEDS: Atorvastatin Calcium 40 MG TAB PO SCH (08:03)
[2021-08-21] MEDS: Clopidogrel Bisulfate 75 MG TAB PO SCH (08:03)
[2021-08-21] MEDS: Citalopram 20 MG TAB PO SCH (08:03)
[2021-08-21] MEDS: Apixaban 2.5 MG TAB PO SCH ×2 (08:03→20:44)
[2021-08-21] MEDS: Aspirin Chewable 81 MG TAB PO SCH (08:03)
[2021-08-21] MEDS: Carvedilol 6.25 MG TAB PO SCH ×2 (08:03→16:08)
[2021-08-21] MEDS: Amiodarone 200 MG TAB PO SCH (08:03)
[2021-08-21] MEDS: Multivitamin W/ Minerals 1 TAB PO SCH (08:03)
[2021-08-21] MEDS: predniSONE 20 MG TAB PO SCH ×2 (08:03→16:08)
[2021-08-21] MEDS: Gabapentin 100 MG CAP PO SCH ×2 (08:04→20:40)
[2021-08-21] MEDS ORDERED: Insulin Glargine 30 UNITS/0.3 ML VIAL SC SCH ×2 (09:00→21:00)
[2021-08-21] MEDS: Colchicine 0.6 MG TAB PO SCH ×2 (09:33→20:40)
[2021-08-21 10:24] LABS: ANA Symphony (Qualitative) Negative (Negative); ANA Symphony (Quantitative) 0.1 Ratio (< 0.7 Negative); dsDNA IgG Antibody 0.8 IU/mL (<10 Negative)
[2021-08-21] MEDS: ALPRAZolam 0.25 MG TAB PO PRN (20:47)
[2021-08-21] MEDS: traMADol HCl 50 MG TAB PO PRN (23:37)
[2021-08-21] MEDS: Temazepam 15 MG CAP PO PRN (23:40)
[2021-08-22] MEDS: Morphine 2 MG/ML VIAL SLOW IVP PRN ×3 (00:41→09:23)
[2021-08-22] MEDS: HumaLOG 300 UNITS/3 ML VIAL SC PRN ×2 (05:11→11:34)
[2021-08-22] MEDS: Sodium Chloride 0.9% 1,000 ML IV SCH (07:58)
[2021-08-22] MEDS: Multivitamin W/ Minerals 1 TAB PO SCH (08:02)
[2021-08-22] MEDS: Gabapentin 100 MG CAP PO SCH (08:02)
[2021-08-22] MEDS: Amiodarone 200 MG TAB PO SCH (08:02)
[2021-08-22] MEDS: Citalopram 20 MG TAB PO SCH (08:02)
[2021-08-22] MEDS: Aspirin Chewable 81 MG TAB PO SCH (08:02)
[2021-08-22] MEDS: Carvedilol 6.25 MG TAB PO SCH (08:02)
[2021-08-22] MEDS: Atorvastatin Calcium 40 MG TAB PO SCH (08:03)
[2021-08-22] MEDS: Apixaban 2.5 MG TAB PO SCH (08:03)
[2021-08-22] MEDS: predniSONE 20 MG TAB PO SCH (08:03)
[2021-08-22] MEDS: Colchicine 0.6 MG TAB PO SCH (08:03)
[2021-08-22] MEDS: Clopidogrel Bisulfate 75 MG TAB PO SCH (08:03)
[2021-08-22] MEDS ORDERED: Insulin Glargine 30 UNITS/0.3 ML VIAL SC SCH ×2 (09:00→21:00)
[2021-08-22 09:15] LABS: Anion Gap 11 mmol/L (10-20); BUN (Urea Nitrogen) 24 mg/dL (8.4-25.7); Calc. Creatinine Clearance 90 mL/min (70-130); Calcium 8.6 mg/dL (7.8-10.44); Carbon Dioxide 26 mmol/L (23-31); Chloride 103 mmol/L (98-107); Glucose 248 mg/dL (80-115); Potassium 3.9 mmol/L (3.5-5.1); Sodium 136 mmol/L (136-145)
[2021-08-22 11:24] VITALS: BP 114/78; TEMP 97.8
== END 2021-08-22 13:26 | DRG 92 ==
LOC: ERS 20:46 → 2SW 23:11 → OBSVTOIN 08-19 11:30
PROVIDERS: ADMIT Internal Medicine; ATTEND Internal Medicine
DX: G72.0 Drug-induced myopathy (principal); I24.1 Dressler's syndrome; I25.110 Atherosclerotic heart disease of native coronary artery with unstable angina pectoris; I50.22 Chronic systolic (congestive) heart failure; I13.0 Hypertensive heart and chronic kidney disease with heart failure and stage 1 through stage 4 chronic kidney disease, or unspecified chronic kidney disease; N17.9 Acute kidney failure, unspecified; Z20.822 Contact with and (suspected) exposure to COVID-19; I25.10 Atherosclerotic heart disease of native coronary artery without angina pectoris; E78.2 Mixed hyperlipidemia; I48.0 Paroxysmal atrial fibrillation; E78.5 Hyperlipidemia, unspecified; G89.29 Other chronic pain; M54.9 Dorsalgia, unspecified; R29.6 Repeated falls; N18.30 Chronic kidney disease, stage 3 unspecified; E11.22 Type 2 diabetes mellitus with diabetic chronic kidney disease; T38.0X5A Adverse effect of glucocorticoids and synthetic analogues, initial encounter; Z91.018 Allergy to other foods; Z95.1 Presence of aortocoronary bypass graft; Z88.8 Allergy status to other drugs, medicaments and biological substances; Z91.09 Other allergy status, other than to drugs and biological substances; Z79.899 Other long term (current) drug therapy; Z79.84 Long term (current) use of oral hypoglycemic drugs; Z79.02 Long term (current) use of antithrombotics/antiplatelets; Z79.01 Long term (current) use of anticoagulants; Z79.4 Long term (current) use of insulin; Z79.52 Long term (current) use of systemic steroids; Z90.49 Acquired absence of other specified parts of digestive tract; Z91.81 History of falling; Z95.5 Presence of coronary angioplasty implant and graft
CPT/HCPCS: 36415; 36416; 70450; 71045; 72100; 72125; 72129; 72132; 80048; 80053; 82085; 82550; 83036; 83615; 84484; 85025; 86038; 86140; 86225; 93005; 93306; 94760; 96374; 96376; G0378; J1815; J2270; J7050; J7512; Q0162; Q9967; U0003; U0005

== ENCOUNTER 2021-08-27 09:45 | Inpatient (IN) | payer MEDICARE ==
[2021-08-27] MEDS ORDERED: Morphine 4 MG/ML VIAL ONE ×2 (10:32→13:16)
[2021-08-27] MEDS ORDERED: Ketorolac Tromethamine 30 MG/ML VIAL ONE (10:32)
[2021-08-27] MEDS ORDERED: Ondansetron PF 4 MG/2 ML Vial ONE (10:37)
[2021-08-27 10:53] LABS: Mean Corpuscular HGB CONC 32.6 g/dL (32.0-36.0); Mean Corpuscular Hemoglobin 30.1 pg (27.0-31.0); Mean Corpuscular Volume 92.1 fL (78.0-98.0); Mean Platelet Volume 9.8 fL (7.4-10.4); Platelet Count 119 thou/uL (130-400); RBC Distribution Width 16.3 % (11.5-14.5); Red Blood Cell (RBC) Count 4.33 mill/uL (4.70-6.10); White Blood Cell (WBC) Count 5.6 thou/uL (4.8-10.8)
[2021-08-27 10:56] LABS: PTT 25.7 sec (22.9-36.1); Prothrombin Time 13.1 sec (12.0-14.7)
[2021-08-27 11:10] LABS: ALT (SGPT) 162 U/L (8-55); AST (SGOT) 190 U/L (5-34); Albumin 3.3 g/dL (3.4-4.8); Alkaline Phosphatase 48 U/L (40-110); Anion Gap 12 mmol/L (10-20); BUN (Urea Nitrogen) 27 mg/dL (8.4-25.7); Bilirubin, Total 0.8 mg/dL (0.2-1.2); Calc. Creatinine Clearance 0 mL/min (70-130); Calcium 8.4 mg/dL (7.8-10.44); Carbon Dioxide 25 mmol/L (23-31); Chloride 105 mmol/L (98-107); Globulin 1.9 g/dL (2.4-3.5); Glucose 158 mg/dL (80-115); Lipase 42 U/L (8-78); Potassium 4.4 mmol/L (3.5-5.1); Protein, Total 5.2 g/dL (5.8-8.1); Sodium 138 mmol/L (136-145)
[2021-08-27 11:12] LABS: Band 5 % (5-11); Eosinophils 1 % (0-10); Lymphocytes 15 % (21-51); MDiff Complete? YES; Monocytes 6 % (0-10); Myelocyte 1 % (0-0); Neutrophil 67 % (42-75); Ovalocytes SLIGHT = 2-5 cells (100X) (0-1/hpf); Platelet Morphology Comment Appears Decreased; Polychromasia SLIGHT = 2-3 cells (100X) (0-2/hpf); Reactive Lymphocytes 5 % (0-10)
[2021-08-27] MEDS ORDERED: Aspirin Chewable 81 MG TAB PO SCH (14:45)
[2021-08-27] MEDS ORDERED: Aspirin Chewable 81 MG TAB ONE (15:11)
[2021-08-27 15:51] VITALS: BMI 27.1
[2021-08-27] MEDS ORDERED: Acetaminophen 325 MG TAB ONE (15:53)
[2021-08-27] MEDS: Acetaminophen 325 MG TAB PO PRN (15:56)
[2021-08-27 16:02] LABS: Troponin I 0.018 ng/mL (< 0.028)
[2021-08-27] MEDS ORDERED: Nitroglycerin 2% Ointment 1 INCH/1 GM Packet ONE (17:12)
[2021-08-27] MEDS ORDERED: Nitroglycerin 2% Ointment 1 INCH/1 GM Packet TOP SCH (17:15)
[2021-08-27] MEDS ORDERED: Gabapentin 100 MG CAP PO SCH (17:30)
[2021-08-27 19:19] LABS: Troponin I 0.018 ng/mL (< 0.028)
[2021-08-27] MEDS: Apixaban 2.5 MG TAB PO SCH (19:53)
[2021-08-27] MEDS: Colchicine 0.6 MG TAB PO SCH (19:53)
[2021-08-27] MEDS: Nitroglycerin 0.4 MG TAB (25 Tab Bottle) SL PRN ×2 (19:55→20:20)
[2021-08-27] MEDS: Gabapentin 100 MG CAP PO SCH (20:10)
[2021-08-27] MEDS: Insulin Glargine 30 UNITS/0.3 ML VIAL SC SCH (20:23)
[2021-08-27 20:59] LABS: Troponin I 0.023 ng/mL (< 0.028)
[2021-08-27] MEDS ORDERED: Methocarbamol 500 MG TAB PO SCH (22:00)
[2021-08-28 00:56] LABS: SARS-CoV-2 PCR by NAA Not Detected (NotDetected)
[2021-08-28] MEDS ORDERED: Methocarbamol 500 MG TAB PO SCH (03:45)
[2021-08-28 05:31] LABS: #Eosinphils 0.1 thou/uL (0.0-0.7); #Lymphocytes 0.6 thou/uL (1.20-3.40); #Monocytes 0.4 thou/uL (0.11-0.59); #Neutrophils 4.2 thou/uL (1.40-6.50); %Basophils 0.4 % (0.0-1.0); %Eosinophils 2.4 % (0.0-10.0); %Lymphocytes 11.9 % (21.0-51.0); %Monocytes 7.3 % (0.0-10.0); %Neutrophils 77.9 % (42.0-75.0); Hemoglobin 12.3 g/dL (14.0-18.0); Mean Corpuscular HGB CONC 33.3 g/dL (32.0-36.0); Mean Corpuscular Hemoglobin 30.8 pg (27.0-31.0); Mean Corpuscular Volume 92.3 fL (78.0-98.0); Mean Platelet Volume 9.6 fL (7.4-10.4); Platelet Count 112 thou/uL (130-400); RBC Distribution Width 16.3 % (11.5-14.5); Red Blood Cell (RBC) Count 3.99 mill/uL (4.70-6.10); White Blood Cell (WBC) Count 5.4 thou/uL (4.8-10.8)
[2021-08-28 05:50] LABS: Anion Gap 15 mmol/L (10-20); BUN (Urea Nitrogen) 25 mg/dL (8.4-25.7); Calc. Creatinine Clearance 90 mL/min (70-130); Calcium 8.7 mg/dL (7.8-10.44); Carbon Dioxide 21 mmol/L (23-31); Chloride 104 mmol/L (98-107); Glucose 135 mg/dL (80-115); Potassium 3.7 mmol/L (3.5-5.1); Sodium 136 mmol/L (136-145)
[2021-08-28] MEDS ORDERED: Ketorolac Tromethamine 30 MG/ML VIAL IVP SCH (06:00)
[2021-08-28] MEDS ORDERED: Amiodarone 200 MG TAB PO SCH (09:00)
[2021-08-28] MEDS: Citalopram 20 MG TAB PO SCH (09:24)
[2021-08-28] MEDS: Apixaban 2.5 MG TAB PO SCH (09:24)
[2021-08-28] MEDS: Atorvastatin Calcium 40 MG TAB PO SCH (09:24)
[2021-08-28] MEDS: Gabapentin 100 MG CAP PO SCH ×2 (09:24→20:37)
[2021-08-28] MEDS: Colchicine 0.6 MG TAB PO SCH ×2 (09:24→20:39)
[2021-08-28] MEDS: Aspirin Chewable 81 MG TAB PO SCH (09:24)
[2021-08-28] MEDS: Nitroglycerin 0.4 MG TAB (25 Tab Bottle) SL PRN (11:02)
[2021-08-28] MEDS ORDERED: Electrolyte Replacement Protocol 1 EACH FS PRN (15:45)
[2021-08-28] MEDS: traMADol HCl 50 MG TAB PO PRN (17:34)
[2021-08-28] MEDS: predniSONE 20 MG TAB PO SCH (17:35)
[2021-08-28] MEDS: Carvedilol 3.125 MG TAB PO SCH (20:38)
[2021-08-28] MEDS: Insulin Glargine 30 UNITS/0.3 ML VIAL SC SCH (20:39)
[2021-08-28] MEDS: Acetaminophen 325 MG TAB PO PRN (20:39)
[2021-08-29] MEDS: traMADol HCl 50 MG TAB PO PRN (00:29)
[2021-08-29 04:55] LABS: #Lymphocytes 0.1 thou/uL (1.20-3.40); #Monocytes 0.2 thou/uL (0.11-0.59); #Neutrophils 3.5 thou/uL (1.40-6.50); %Basophils 1.3 % (0.0-1.0); %Eosinophils 0.8 % (0.0-10.0); %Lymphocytes 3.1 % (21.0-51.0); %Monocytes 4.2 % (0.0-10.0); %Neutrophils 90.7 % (42.0-75.0); Hemoglobin 10.8 g/dL (14.0-18.0); Mean Corpuscular HGB CONC 32.8 g/dL (32.0-36.0); Mean Corpuscular Hemoglobin 30.1 pg (27.0-31.0); Mean Corpuscular Volume 91.7 fL (78.0-98.0); Mean Platelet Volume 9.7 fL (7.4-10.4); Platelet Count 106 thou/uL (130-400); RBC Distribution Width 16.4 % (11.5-14.5); Red Blood Cell (RBC) Count 3.58 mill/uL (4.70-6.10); White Blood Cell (WBC) Count 3.8 thou/uL (4.8-10.8)
[2021-08-29 05:13] LABS: Anion Gap 12 mmol/L (10-20); BUN (Urea Nitrogen) 22 mg/dL (8.4-25.7); Calc. Creatinine Clearance 89 mL/min (70-130); Calcium 8.3 mg/dL (7.8-10.44); Carbon Dioxide 22 mmol/L (23-31); Chloride 103 mmol/L (98-107); Glucose 387 mg/dL (80-115); Magnesium 1.8 mg/dL (1.6-2.6); Potassium 4.1 mmol/L (3.5-5.1); Sodium 133 mmol/L (136-145)
[2021-08-29] MEDS ORDERED: Dextrose 5% in Water 1,000 ML IV PRN (05:21)
[2021-08-29] MEDS ORDERED: Dextrose 50% Abboject 50 ML SYRINGE SLOW IVP PRN (05:21)
[2021-08-29] MEDS ORDERED: HumaLOG 300 UNITS/3 ML VIAL SC PRN (05:21)
[2021-08-29] MEDS: HumaLOG 300 UNITS/3 ML VIAL SC PRN ×4 (05:57→20:29)
[2021-08-29] MEDS ORDERED: Magnesium 2 GM/50 ML(in water) 2 GM in Premix Bag 1 BAG IVPB SCH (06:30)
[2021-08-29] MEDS: Aspirin Chewable 81 MG TAB PO SCH (09:31)
[2021-08-29] MEDS: Atorvastatin Calcium 40 MG TAB PO SCH (09:31)
[2021-08-29] MEDS: predniSONE 20 MG TAB PO SCH ×2 (09:31→17:20)
[2021-08-29] MEDS: Gabapentin 100 MG CAP PO SCH ×2 (09:32→20:28)
[2021-08-29] MEDS: Clopidogrel Bisulfate 75 MG TAB PO SCH (09:32)
[2021-08-29] MEDS: Colchicine 0.6 MG TAB PO SCH ×2 (09:32→20:29)
[2021-08-29] MEDS: Citalopram 20 MG TAB PO SCH (09:32)
[2021-08-29] MEDS: Carvedilol 3.125 MG TAB PO SCH ×2 (09:32→20:29)
[2021-08-29] MEDS: Insulin Glargine 30 UNITS/0.3 ML VIAL SC SCH (20:29)
[2021-08-30 04:43] LABS: Hemoglobin 11.1 g/dL (14.0-18.0); Mean Corpuscular HGB CONC 33.1 g/dL (32.0-36.0); Mean Corpuscular Hemoglobin 30.6 pg (27.0-31.0); Mean Corpuscular Volume 92.5 fL (78.0-98.0); Platelet Count 110 thou/uL (130-400); RBC Distribution Width 16.5 % (11.5-14.5); Red Blood Cell (RBC) Count 3.63 mill/uL (4.70-6.10); White Blood Cell (WBC) Count 4.1 thou/uL (4.8-10.8)
[2021-08-30 05:03] LABS: Anion Gap 14 mmol/L (10-20); BUN (Urea Nitrogen) 21 mg/dL (8.4-25.7); Calc. Creatinine Clearance 83 mL/min (70-130); Calcium 8.6 mg/dL (7.8-10.44); Carbon Dioxide 24 mmol/L (23-31); Chloride 102 mmol/L (98-107); Glucose 399 mg/dL (80-115); Magnesium 2.1 mg/dL (1.6-2.6); Potassium 4.5 mmol/L (3.5-5.1); Sodium 135 mmol/L (136-145)
[2021-08-30] MEDS: HumaLOG 300 UNITS/3 ML VIAL SC PRN (06:05)
[2021-08-30] MEDS ORDERED: HumaLOG 300 UNITS/3 ML VIAL SC PRN (07:18)
[2021-08-30] MEDS ORDERED: predniSONE 5 MG TAB PO SCH (08:00)
[2021-08-30] MEDS ORDERED: Lidocaine 1% w/Epinephrine 1:100K 20 ML VIAL ONE (08:15)
[2021-08-30] MEDS: Carvedilol 3.125 MG TAB PO SCH (08:41)
[2021-08-30] MEDS: Colchicine 0.6 MG TAB PO SCH (08:41)
[2021-08-30] MEDS: Citalopram 20 MG TAB PO SCH (08:42)
[2021-08-30] MEDS: Clopidogrel Bisulfate 75 MG TAB PO SCH (08:42)
[2021-08-30] MEDS: Aspirin Chewable 81 MG TAB PO SCH (08:42)
[2021-08-30] MEDS: Atorvastatin Calcium 40 MG TAB PO SCH (08:42)
[2021-08-30] MEDS: Gabapentin 100 MG CAP PO SCH (08:42)
[2021-08-30 15:57] VITALS: BP 127/68; TEMP 98
[2021-08-30] MEDS ORDERED: predniSONE 20 MG TAB PO SCH (17:41)
[2021-08-30] MEDS ORDERED: Insulin Glargine 30 UNITS/0.3 ML VIAL SC SCH (21:00)
== END 2021-08-30 19:25 | DRG 261 ==
LOC: ERS 09:45 → ERHOLD 14:01 → 2SW 19:35 → OBSVTOIN 08-29 07:23
PROVIDERS: ADMIT Family Medicine; ATTEND Internal Medicine
PROC: 0JH632Z Insertion of Monitoring Device into Chest Subcutaneous Tissue and Fascia, Percutaneous Approach (ICD-10-PCS; principal; 2021-08-30)
DX: R55 Syncope and collapse (principal); I31.9 Disease of pericardium, unspecified; R07.89 Other chest pain; Z20.822 Contact with and (suspected) exposure to COVID-19; I25.10 Atherosclerotic heart disease of native coronary artery without angina pectoris; G89.29 Other chronic pain; I48.0 Paroxysmal atrial fibrillation; F41.9 Anxiety disorder, unspecified; E78.5 Hyperlipidemia, unspecified; E11.40 Type 2 diabetes mellitus with diabetic neuropathy, unspecified; E11.22 Type 2 diabetes mellitus with diabetic chronic kidney disease; Z96.641 Presence of right artificial hip joint; N18.2 Chronic kidney disease, stage 2 (mild); Z95.5 Presence of coronary angioplasty implant and graft; Z95.1 Presence of aortocoronary bypass graft; Z91.018 Allergy to other foods; Z88.8 Allergy status to other drugs, medicaments and biological substances; Z91.09 Other allergy status, other than to drugs and biological substances; Z96.82 Presence of neurostimulator; Z79.899 Other long term (current) drug therapy; Z79.02 Long term (current) use of antithrombotics/antiplatelets; Z79.84 Long term (current) use of oral hypoglycemic drugs; Z79.01 Long term (current) use of anticoagulants; Z79.4 Long term (current) use of insulin; Z79.52 Long term (current) use of systemic steroids; Z79.82 Long term (current) use of aspirin; Z90.49 Acquired absence of other specified parts of digestive tract; I25.2 Old myocardial infarction; Z98.1 Arthrodesis status
CPT/HCPCS: 33285; 36415; 36416; 71045; 80048; 83690; 83735; 83880; 84484; 85025; 85027; 85610; 85730; 93005; 93010; 96374; 96375; 96376; C1764; G0378; J1815; J1885; J2270; J2405; J3475; J7512; U0003; U0005

== ENCOUNTER 2021-09-25 19:13 | Inpatient (IN) | payer MEDICARE, OTHER ==
[~2021-09-25 19:13] MED LIST: Iopamidol-370 76% 500 ML 1 ML ONE
[2021-09-25 20:12] LABS: #Eosinphils 0.1 thou/uL (0.0-0.7); #Lymphocytes 0.7 thou/uL (1.20-3.40); #Monocytes 0.7 thou/uL (0.11-0.59); %Basophils 0.6 % (0.0-1.0); %Lymphocytes 12.6 % (21.0-51.0); %Monocytes 12.7 % (0.0-10.0); %Neutrophils 73.1 % (42.0-75.0); Hemoglobin 11.8 g/dL (14.0-18.0); Mean Corpuscular HGB CONC 32.5 g/dL (32.0-36.0); Mean Corpuscular Hemoglobin 28.8 pg (27.0-31.0); Mean Corpuscular Volume 88.6 fL (78.0-98.0); Platelet Count 226 thou/uL (130-400); RBC Distribution Width 18.6 % (11.5-14.5); Red Blood Cell (RBC) Count 4.11 mill/uL (4.70-6.10); White Blood Cell (WBC) Count 5.5 thou/uL (4.8-10.8)
[2021-09-25 20:24] LABS: ALT (SGPT) 154 U/L (8-55); AST (SGOT) 119 U/L (5-34); Albumin 3.4 g/dL (3.4-4.8); Alkaline Phosphatase 83 U/L (40-110); Anion Gap 15 mmol/L (10-20); BUN (Urea Nitrogen) 16 mg/dL (8.4-25.7); Bilirubin, Total 1.1 mg/dL (0.2-1.2); Calc. Creatinine Clearance 0 mL/min (70-130); Calcium 8.3 mg/dL (7.8-10.44); Carbon Dioxide 24 mmol/L (23-31); Chloride 101 mmol/L (98-107); Globulin 2.2 g/dL (2.4-3.5); Glucose 130 mg/dL (80-115); Lipase 12 U/L (8-78); Potassium 3.4 mmol/L (3.5-5.1); Protein, Total 5.6 g/dL (5.8-8.1); Sodium 137 mmol/L (136-145)
[2021-09-25] MEDS ORDERED: Lorazepam 2 MG/ML VIAL ONE (22:14)
[2021-09-26] MEDS ORDERED: Ketorolac Tromethamine 30 MG/ML VIAL ONE (01:26)
[2021-09-26] MEDS ORDERED: Morphine 4 MG/ML VIAL ONE ×3 (02:25→10:28)
[2021-09-26] MEDS ORDERED: Morphine 4 MG/ML VIAL SLOW IVP SCH (02:45)
[2021-09-26] MEDS ORDERED: hydrALAZINE 20 MG/ML VIAL SLOW IVP PRN (03:39)
[2021-09-26] MEDS ORDERED: Ondansetron PF 4 MG/2 ML Vial IVP PRN (03:39)
[2021-09-26] MEDS ORDERED: HYDROcodone/Acetaminophen 7.5/325 mg Tablet PO PRN ×2 (03:39)
[2021-09-26] MEDS ORDERED: Nitroglycerin 0.4 MG TAB (25 Tab Bottle) SL PRN (03:39)
[2021-09-26] MEDS ORDERED: Dextrose 5% in Water 1,000 ML IV PRN (03:39)
[2021-09-26] MEDS ORDERED: ALPRAZolam 0.25 MG TAB PO PRN (03:39)
[2021-09-26] MEDS ORDERED: HumaLOG 300 UNITS/3 ML VIAL SC PRN (03:39)
[2021-09-26] MEDS ORDERED: Ondansetron ODT 4 MG TAB PO PRN (03:39)
[2021-09-26] MEDS ORDERED: Acetaminophen 500 MG TAB PO PRN (03:39)
[2021-09-26] MEDS ORDERED: Dextrose 50% Abboject 50 ML SYRINGE SLOW IVP PRN (03:39)
[2021-09-26] MEDS ORDERED: Potassium Chloride 20 MEQ TAB PO SCH (04:00)
[2021-09-26] MEDS ORDERED: ALPRAZolam 0.25 MG TAB ONE (04:58)
[2021-09-26] MEDS: Morphine 4 MG/ML VIAL SLOW IVP PRN ×4 (05:45→20:47)
[2021-09-26 06:45] LABS: CK (CPK) 149 U/L (30-200); Magnesium 1.3 mg/dL (1.6-2.6)
[2021-09-26] MEDS ORDERED: Potassium Chloride 20 MEQ TAB ONE (06:51)
[2021-09-26] MEDS: Sodium Chloride 0.9% 1,000 ML IV SCH (06:57)
[2021-09-26] MEDS ORDERED: Aspirin Chewable 81 MG TAB ONE (09:53)
[2021-09-26] MEDS ORDERED: Clopidogrel Bisulfate 75 MG TAB ONE (09:53)
[2021-09-26] MEDS: Apixaban 2.5 MG TAB PO SCH ×2 (10:03→20:46)
[2021-09-26] MEDS: Aspirin Chewable 81 MG TAB PO SCH (10:03)
[2021-09-26] MEDS: glipiZIDE 5 MG TAB PO SCH ×2 (10:03→17:24)
[2021-09-26] MEDS: Amiodarone 200 MG TAB PO SCH (10:03)
[2021-09-26] MEDS: Gabapentin 100 MG CAP PO SCH ×2 (10:04→20:46)
[2021-09-26] MEDS: Clopidogrel Bisulfate 75 MG TAB PO SCH (10:04)
[2021-09-26] MEDS: Citalopram 20 MG TAB PO SCH (10:04)
[2021-09-26] MEDS: Carvedilol 6.25 MG TAB PO SCH ×2 (10:05→20:47)
[2021-09-26] MEDS ORDERED: HYDROcodone/Acetaminophen 7.5/325 mg Tablet ONE (10:21)
[2021-09-26] MEDS ORDERED: Ondansetron PF 4 MG/2 ML Vial ONE (10:28)
[2021-09-26 13:50] LABS: SARS-CoV-2 NAA Rapid Test Not Detected (NotDetected)
[2021-09-26] MEDS ORDERED: Magnesium 2 GM/50 ML(in water) 2 GM in Premix Bag 1 BAG IVPB SCH (14:15)
[2021-09-26 16:55] LABS: Troponin I 0.016 ng/mL (< 0.028)
[2021-09-26 19:54] LABS: Troponin I 0.016 ng/mL (< 0.028)
[2021-09-26 20:00] VITALS: BMI 26.2
[2021-09-26] MEDS: Temazepam 15 MG CAP PO SCH (20:47)
[2021-09-27] MEDS: Morphine 4 MG/ML VIAL SLOW IVP PRN ×6 (00:17→22:49)
[2021-09-27 05:38] LABS: Hemoglobin 10.8 g/dL (14.0-18.0); Hypochromia SLIGHT = 6-15 cells (100X) (0-5/hpf); Lymphocytes 30 % (21-51); MDiff Complete? YES; Mean Corpuscular HGB CONC 32.6 g/dL (32.0-36.0); Mean Corpuscular Hemoglobin 29.1 pg (27.0-31.0); Mean Corpuscular Volume 89.5 fL (78.0-98.0); Mean Platelet Volume 11.2 fL (7.4-10.4); Monocytes 12 % (0-10); Neutrophil 58 % (42-75); Platelet Count 158 thou/uL (130-400); Platelet Morphology Comment Appears Adequate; RBC Distribution Width 18.4 % (11.5-14.5); Red Blood Cell (RBC) Count 3.69 mill/uL (4.70-6.10)
[2021-09-27 05:40] LABS: ALT (SGPT) 108 U/L (8-55); AST (SGOT) 88 U/L (5-34); Albumin 2.7 g/dL (3.4-4.8); Alkaline Phosphatase 67 U/L (40-110); Anion Gap 12 mmol/L (10-20); BUN (Urea Nitrogen) 15 mg/dL (8.4-25.7); Bilirubin, Total 0.7 mg/dL (0.2-1.2); Calc. Creatinine Clearance 61 mL/min (70-130); Calcium 8.2 mg/dL (7.8-10.44); Carbon Dioxide 21 mmol/L (23-31); Chloride 104 mmol/L (98-107); Globulin 2.4 g/dL (2.4-3.5); Glucose 75 mg/dL (80-115); Potassium 3.4 mmol/L (3.5-5.1); Protein, Total 5.1 g/dL (5.8-8.1); Sodium 134 mmol/L (136-145)
[2021-09-27] MEDS ORDERED: Sodium Chloride 0.65% Nasal 44 ML BOT EA NARE PRN (08:16)
[2021-09-27] MEDS ORDERED: Cepastat Lozenges 1 LOZ PO PRN (08:16)
[2021-09-27] MEDS ORDERED: Artificial Tear Sol 15 ML BOT EA EYE PRN (08:16)
[2021-09-27] MEDS ORDERED: Calcium Carbonate 500 MG ChewTAB PO PRN (08:16)
[2021-09-27] MEDS ORDERED: Loratadine 10 MG TAB PO PRN (08:16)
[2021-09-27] MEDS ORDERED: Senokot S 8.6-50 MG TAB PO PRN (08:16)
[2021-09-27] MEDS ORDERED: GUAIFENESIN SF SOLN 200 MG/10 ML UDCUP PO PRN (08:16)
[2021-09-27] MEDS ORDERED: Loperamide HCl 2 MG CAP PO PRN (08:16)
[2021-09-27] MEDS ORDERED: Moisturizing Cream (Eucerin) 113 GM JAR TOP PRN (08:16)
[2021-09-27] MEDS ORDERED: Acetaminophen 500 MG TAB PO PRN (08:22)
[2021-09-27] MEDS: Furosemide 20 MG TAB PO SCH (08:48)
[2021-09-27] MEDS: Gabapentin 100 MG CAP PO SCH ×2 (08:48→21:43)
[2021-09-27] MEDS: Citalopram 20 MG TAB PO SCH (08:49)
[2021-09-27] MEDS: Apixaban 2.5 MG TAB PO SCH ×2 (08:49→21:43)
[2021-09-27] MEDS: Atorvastatin Calcium 40 MG TAB PO SCH (08:49)
[2021-09-27] MEDS: Amiodarone 200 MG TAB PO SCH (08:49)
[2021-09-27] MEDS: Aspirin Chewable 81 MG TAB PO SCH (08:49)
[2021-09-27] MEDS: glipiZIDE 5 MG TAB PO SCH ×2 (08:50→15:30)
[2021-09-27] MEDS: Carvedilol 6.25 MG TAB PO SCH ×2 (08:50→21:44)
[2021-09-27] MEDS: Clopidogrel Bisulfate 75 MG TAB PO SCH (08:50)
[2021-09-27] MEDS ORDERED: Potassium Chloride 20 MEQ TAB PO SCH (09:00)
[2021-09-27] MEDS ORDERED: Atorvastatin Calcium 40 MG TAB PO SCH (09:00)
[2021-09-27] MEDS ORDERED: Furosemide 40 MG/4 ML VIAL SLOW IVP SCH (10:30)
[2021-09-27 11:52] LABS: Actual Bicarbonate (HCO3a) 24.2 mEq/L (22-28); Analyzer IN Cardio OR; Base Excess (BEa) -0.4 mEq/L (-2.0 to +3.0); CO2 Tension 39.3 mmHg (35.0-45.0); Calcium, Ionized (arterial) 1.12 mmol/L (1.12-1.30); Hemoglobin (Hb) 11.8 g/dL (14.0-18.0); O2 Tension (PaO2), arterial 61.8 mmHg (> 80.0); Potassium - ABG Lab 3.73 mmol/L (3.70-5.30); pH, Arterial 7.41 (7.35-7.45)
[2021-09-27 11:54] LABS: ALV-art Gradient 38.805 mmHg (0-20); Puncture Site RBA
[2021-09-27] MEDS: Sodium Chloride 0.9% 1,000 ML IV SCH (12:51)
[2021-09-27] MEDS: HumaLOG 300 UNITS/3 ML VIAL SC PRN (17:20)
[2021-09-27] MEDS: Temazepam 15 MG CAP PO SCH (21:43)
[2021-09-28] MEDS: Morphine 4 MG/ML VIAL SLOW IVP PRN ×6 (03:44→22:54)
[2021-09-28 05:35] LABS: #Eosinphils 0.1 thou/uL (0.0-0.7); #Lymphocytes 0.8 thou/uL (1.20-3.40); #Monocytes 0.7 thou/uL (0.11-0.59); #Neutrophils 3.7 thou/uL (1.40-6.50); %Basophils 0.7 % (0.0-1.0); %Eosinophils 2.5 % (0.0-10.0); %Monocytes 13.3 % (0.0-10.0); %Neutrophils 68.4 % (42.0-75.0); Hemoglobin 9.8 g/dL (14.0-18.0); Mean Corpuscular HGB CONC 33.8 g/dL (32.0-36.0); Mean Corpuscular Hemoglobin 29.5 pg (27.0-31.0); Mean Corpuscular Volume 87.5 fL (78.0-98.0); Mean Platelet Volume 11.2 fL (7.4-10.4); Platelet Count 162 thou/uL (130-400); RBC Distribution Width 18.2 % (11.5-14.5); Red Blood Cell (RBC) Count 3.31 mill/uL (4.70-6.10); White Blood Cell (WBC) Count 5.3 thou/uL (4.8-10.8)
[2021-09-28 05:41] LABS: ALT (SGPT) 84 U/L (8-55); AST (SGOT) 62 U/L (5-34); Albumin 2.8 g/dL (3.4-4.8); Alkaline Phosphatase 63 U/L (40-110); Anion Gap 12 mmol/L (10-20); BUN (Urea Nitrogen) 15 mg/dL (8.4-25.7); Bilirubin, Total 0.7 mg/dL (0.2-1.2); CRP (Inflammatory) 1.66 mg/dL (= or < 0.5); Calc. Creatinine Clearance 63 mL/min (70-130); Calcium 8.3 mg/dL (7.8-10.44); Carbon Dioxide 21 mmol/L (23-31); Chloride 102 mmol/L (98-107); Globulin 2.3 g/dL (2.4-3.5); Glucose 97 mg/dL (80-115); Magnesium 1.5 mg/dL (1.6-2.6); Phosphorus 2.7 mg/dL (2.3-4.7); Potassium 3.4 mmol/L (3.5-5.1); Protein, Total 5.1 g/dL (5.8-8.1); Sodium 132 mmol/L (136-145)
[2021-09-28] MEDS ORDERED: Potassium Chloride 20 MEQ TAB PO SCH (08:00)
[2021-09-28] MEDS ORDERED: Magnesium Sulfate 3 GM in Sodium Chloride 0.9% 100 ML IVPB SCH (09:00)
[2021-09-28] MEDS: Aspirin Chewable 81 MG TAB PO SCH (09:07)
[2021-09-28] MEDS: Carvedilol 6.25 MG TAB PO SCH ×2 (09:08→21:34)
[2021-09-28] MEDS: Citalopram 20 MG TAB PO SCH (09:08)
[2021-09-28] MEDS: glipiZIDE 5 MG TAB PO SCH ×2 (09:08→15:29)
[2021-09-28] MEDS: Gabapentin 100 MG CAP PO SCH ×2 (09:08→21:34)
[2021-09-28] MEDS: Atorvastatin Calcium 40 MG TAB PO SCH (09:08)
[2021-09-28] MEDS: Furosemide 20 MG TAB PO SCH (09:08)
[2021-09-28] MEDS: Apixaban 2.5 MG TAB PO SCH ×2 (09:09→21:35)
[2021-09-28] MEDS: Amiodarone 200 MG TAB PO SCH (09:09)
[2021-09-28] MEDS: Clopidogrel Bisulfate 75 MG TAB PO SCH (09:09)
[2021-09-28] MEDS: HumaLOG 300 UNITS/3 ML VIAL SC PRN ×2 (11:16→16:48)
[2021-09-28] MEDS ORDERED: Senokot S 8.6-50 MG TAB PO PRN (14:45)
[2021-09-28] MEDS: Temazepam 15 MG CAP PO SCH (21:34)
[2021-09-29] MEDS: Morphine 4 MG/ML VIAL SLOW IVP PRN ×2 (03:11→09:12)
[2021-09-29] MEDS: Gabapentin 100 MG CAP PO SCH (09:10)
[2021-09-29] MEDS: Atorvastatin Calcium 40 MG TAB PO SCH (09:10)
[2021-09-29] MEDS: Apixaban 2.5 MG TAB PO SCH (09:10)
[2021-09-29] MEDS: Furosemide 20 MG TAB PO SCH (09:10)
[2021-09-29] MEDS: glipiZIDE 5 MG TAB PO SCH (09:11)
[2021-09-29] MEDS: Aspirin Chewable 81 MG TAB PO SCH (09:11)
[2021-09-29] MEDS: Citalopram 20 MG TAB PO SCH (09:11)
[2021-09-29] MEDS: Clopidogrel Bisulfate 75 MG TAB PO SCH (09:12)
[2021-09-29] MEDS: Amiodarone 200 MG TAB PO SCH (09:12)
[2021-09-29] MEDS: Carvedilol 6.25 MG TAB PO SCH (09:12)
[2021-09-29 12:09] VITALS: BP 108/54; TEMP 97.6
== END 2021-09-29 13:24 | disposition home or self-care (01) | DRG 291 ==
LOC: ERS 19:13 → ERHOLD 09-26 00:42 → OBSVTOIN 09-26 03:39 → NEURO 09-26 13:08
PROVIDERS: ADMIT Internal Medicine; ATTEND Internal Medicine
DX: I13.0 Hypertensive heart and chronic kidney disease with heart failure and stage 1 through stage 4 chronic kidney disease, or unspecified chronic kidney disease (principal); Z20.822 Contact with and (suspected) exposure to COVID-19; J96.21 Acute and chronic respiratory failure with hypoxia; I50.43 Acute on chronic combined systolic (congestive) and diastolic (congestive) heart failure; N17.9 Acute kidney failure, unspecified; E87.6 Hypokalemia; I25.10 Atherosclerotic heart disease of native coronary artery without angina pectoris; E78.2 Mixed hyperlipidemia; I48.0 Paroxysmal atrial fibrillation; E83.42 Hypomagnesemia; E11.40 Type 2 diabetes mellitus with diabetic neuropathy, unspecified; Z96.641 Presence of right artificial hip joint; F41.9 Anxiety disorder, unspecified; G89.29 Other chronic pain; M54.9 Dorsalgia, unspecified; Z96.1 Presence of intraocular lens; N18.2 Chronic kidney disease, stage 2 (mild); R74.01 Elevation of levels of liver transaminase levels; E11.22 Type 2 diabetes mellitus with diabetic chronic kidney disease; Z90.49 Acquired absence of other specified parts of digestive tract; Z98.1 Arthrodesis status; Z95.1 Presence of aortocoronary bypass graft; Z95.5 Presence of coronary angioplasty implant and graft; Z98.890 Other specified postprocedural states; Z79.899 Other long term (current) drug therapy; Z79.01 Long term (current) use of anticoagulants; Z79.84 Long term (current) use of oral hypoglycemic drugs; Z79.4 Long term (current) use of insulin; Z79.82 Long term (current) use of aspirin; Z79.02 Long term (current) use of antithrombotics/antiplatelets; Z82.49 Family history of ischemic heart disease and other diseases of the circulatory system; Z95.818 Presence of other cardiac implants and grafts; Z87.891 Personal history of nicotine dependence; Z91.018 Allergy to other foods; Z88.8 Allergy status to other drugs, medicaments and biological substances; Z91.09 Other allergy status, other than to drugs and biological substances
CPT/HCPCS: 36415; 36416; 36600; 70450; 71045; 71275; 72125; 80053; 82550; 82805; 83690; 83735; 83880; 84100; 84484; 85025; 85379; 86140; 93005; 93306; 94760; 96374; G0378; J1815; J1885; J1940; J2060; J2270; J2405; J3475; J3490; J7050; Q9967; U0002

== ENCOUNTER 2021-11-16 05:33 | Inpatient (IN) | payer MEDICARE, OTHER ==
[2021-11-16] MEDS ORDERED: HYDROcodone/Acetaminophen 5/325 mg Tablet PO PRN (09:43)
[2021-11-16] MEDS ORDERED: traMADol HCl 50 MG TAB PO PRN (09:59)
[2021-11-16] MEDS ORDERED: Furosemide 40 MG/4 ML VIAL SLOW IVP SCH (10:00)
[2021-11-16] MEDS: Morphine 4 MG/ML VIAL SLOW IVP PRN ×2 (10:53→21:47)
[2021-11-16] MEDS ORDERED: Dextrose 5% in Water 1,000 ML IV PRN (11:24)
[2021-11-16] MEDS ORDERED: HumaLOG 300 UNITS/3 ML VIAL SC PRN (11:24)
[2021-11-16] MEDS ORDERED: Dextrose 50% Abboject 50 ML SYRINGE SLOW IVP PRN (11:24)
[2021-11-16] MEDS ORDERED: Amiodarone 200 MG TAB PO SCH (11:29)
[2021-11-16] MEDS ORDERED: Apixaban 2.5 MG TAB PO SCH (11:30)
[2021-11-16] MEDS ORDERED: Clopidogrel Bisulfate 75 MG TAB PO SCH (11:31)
[2021-11-16] MEDS ORDERED: Carvedilol 3.125 MG TAB PO SCH (11:49)
[2021-11-16] MEDS: ALPRAZolam 0.25 MG TAB PO PRN (12:41)
[2021-11-16] MEDS: Nitroglycerin 0.4 MG TAB (25 Tab Bottle) SL PRN ×3 (13:06→13:24)
[2021-11-16] MEDS ORDERED: HYDROmorphone 0.5 MG/0.5 ML SYRINGE SLOW IVP SCH (14:15)
[2021-11-16 14:32] LABS: Troponin I Less than 0.010 ng/mL (< 0.028)
[2021-11-16] MEDS: Carvedilol 3.125 MG TAB PO SCH (17:54)
[2021-11-16 18:21] LABS: Troponin I 0.018 ng/mL (< 0.028)
[2021-11-16] MEDS: Apixaban 2.5 MG TAB PO SCH (21:46)
[2021-11-16] MEDS: Atorvastatin Calcium 40 MG TAB PO SCH (21:46)
[2021-11-16] MEDS: Colchicine 0.6 MG TAB PO SCH (21:46)
[2021-11-16] MEDS: Gabapentin 100 MG CAP PO SCH (21:47)
[2021-11-16] MEDS: Cyclobenzaprine 10 MG TAB PO SCH (21:47)
[2021-11-16] MEDS: Temazepam 15 MG CAP PO SCH (23:00)
[2021-11-17] MEDS: Morphine 4 MG/ML VIAL SLOW IVP PRN ×5 (02:19→23:38)
[2021-11-17 05:05] LABS: Hemoglobin 10.4 g/dL (14.0-18.0); Mean Corpuscular HGB CONC 31.7 g/dL (32.0-36.0); Mean Corpuscular Hemoglobin 25.2 pg (27.0-31.0); Mean Corpuscular Volume 79.5 fL (78.0-98.0); Mean Platelet Volume 11.3 fL (7.4-10.4); Platelet Count 210 thou/uL (130-400); RBC Distribution Width 19.1 % (11.5-14.5); Red Blood Cell (RBC) Count 4.11 mill/uL (4.70-6.10); White Blood Cell (WBC) Count 5.3 thou/uL (4.8-10.8)
[2021-11-17 05:06] LABS: #Eosinphils 0.2 thou/uL (0.0-0.7); #Lymphocytes 0.8 thou/uL (1.20-3.40); #Monocytes 0.5 thou/uL (0.11-0.59); #Neutrophils 3.5 thou/uL (1.40-6.50); %Basophils 0.2 % (0.0-1.0); %Eosinophils 4.6 % (0.0-10.0); %Lymphocytes 16.5 % (21.0-51.0); %Monocytes 9.8 % (0.0-10.0); %Neutrophils 68.9 % (42.0-75.0)
[2021-11-17 05:17] LABS: Anion Gap 12 mmol/L (10-20); BUN (Urea Nitrogen) 13 mg/dL (8.4-25.7); Calc. Creatinine Clearance 76 mL/min (70-130); Calcium 9.1 mg/dL (7.8-10.44); Carbon Dioxide 28 mmol/L (23-31); Chloride 102 mmol/L (98-107); Estimated GFR 71; Glucose 148 mg/dL (80-115); Magnesium 1.9 mg/dL (1.6-2.6); Potassium 3.6 mmol/L (3.5-5.1); Sodium 138 mmol/L (136-145)
[2021-11-17] MEDS ORDERED: Furosemide 40 MG/4 ML VIAL SLOW IVP SCH ×2 (09:00→11:30)
[2021-11-17] MEDS: Gabapentin 100 MG CAP PO SCH ×2 (09:25→21:34)
[2021-11-17] MEDS: Apixaban 2.5 MG TAB PO SCH ×2 (09:27→21:33)
[2021-11-17] MEDS: Clopidogrel Bisulfate 75 MG TAB PO SCH (09:27)
[2021-11-17] MEDS: Amiodarone 200 MG TAB PO SCH (09:27)
[2021-11-17] MEDS: Cyclobenzaprine 10 MG TAB PO SCH ×2 (09:28→21:33)
[2021-11-17] MEDS: Carvedilol 3.125 MG TAB PO SCH ×2 (09:28→18:19)
[2021-11-17] MEDS: Aspirin Chewable 81 MG TAB PO SCH (09:28)
[2021-11-17] MEDS: Acetaminophen 325 MG TAB PO PRN ×2 (09:29→18:22)
[2021-11-17] MEDS: Citalopram 20 MG TAB PO SCH (09:29)
[2021-11-17] MEDS: Colchicine 0.6 MG TAB PO SCH ×2 (09:30→21:34)
[2021-11-17] MEDS ORDERED: predniSONE 1 MG TAB PO SCH (12:45)
[2021-11-17] MEDS: Lidocaine 5% Patch TD SCH (13:11)
[2021-11-17] MEDS: traMADol HCl 50 MG TAB PO PRN (13:11)
[2021-11-17] MEDS ORDERED: Metoclopramide HCl 10 MG/2 ML VIAL IVP PRN (15:00)
[2021-11-17] MEDS: ALPRAZolam 0.25 MG TAB PO PRN (18:19)
[2021-11-17] MEDS: Atorvastatin Calcium 40 MG TAB PO SCH (21:33)
[2021-11-17] MEDS: Temazepam 15 MG CAP PO SCH (21:34)
[2021-11-18] MEDS ORDERED: Transdermal Patch Removal TOP SCH (01:00)
[2021-11-18] MEDS: HumaLOG 300 UNITS/3 ML VIAL SC PRN ×3 (06:28→17:48)
[2021-11-18] MEDS: Morphine 4 MG/ML VIAL SLOW IVP PRN ×5 (06:28→21:18)
[2021-11-18] MEDS ORDERED: Polyethylene Glycol 3350 17 GM Packet PO PRN (09:14)
[2021-11-18] MEDS: Cyclobenzaprine 10 MG TAB PO SCH ×2 (09:39→21:18)
[2021-11-18] MEDS: Aspirin Chewable 81 MG TAB PO SCH (09:39)
[2021-11-18] MEDS: Colchicine 0.6 MG TAB PO SCH ×2 (09:39→21:20)
[2021-11-18] MEDS: Gabapentin 100 MG CAP PO SCH ×2 (09:40→21:17)
[2021-11-18] MEDS: Apixaban 2.5 MG TAB PO SCH ×2 (09:40→21:16)
[2021-11-18] MEDS: predniSONE 1 MG TAB PO SCH (09:40)
[2021-11-18] MEDS: Clopidogrel Bisulfate 75 MG TAB PO SCH (09:40)
[2021-11-18] MEDS: Carvedilol 3.125 MG TAB PO SCH ×2 (09:40→16:56)
[2021-11-18] MEDS: Furosemide 20 MG TAB PO SCH (09:41)
[2021-11-18] MEDS: Citalopram 20 MG TAB PO SCH (09:41)
[2021-11-18] MEDS: Amiodarone 200 MG TAB PO SCH (09:41)
[2021-11-18] MEDS ORDERED: Senokot S 8.6-50 MG TAB PO SCH (10:30)
[2021-11-18] MEDS: HYDROcodone/Acetaminophen 10/325 mg Tablet PO PRN ×3 (11:31→23:29)
[2021-11-18] MEDS: Lidocaine 5% Patch TD SCH ×2 (13:52→16:53)
[2021-11-18] MEDS ORDERED: Gabapentin 100 MG CAP PO SCH (17:45)
[2021-11-18] MEDS: ALPRAZolam 0.25 MG TAB PO PRN (17:55)
[2021-11-18] MEDS: Atorvastatin Calcium 40 MG TAB PO SCH (21:17)
[2021-11-18] MEDS: Senokot S 8.6-50 MG TAB PO SCH (21:18)
[2021-11-18] MEDS: Temazepam 15 MG CAP PO SCH (21:18)
[2021-11-19] MEDS: Morphine 4 MG/ML VIAL SLOW IVP PRN ×4 (01:25→15:17)
[2021-11-19] MEDS: Transdermal Patch Removal TOP SCH (04:35)
[2021-11-19] MEDS: Gabapentin 100 MG CAP PO SCH ×3 (08:19→20:33)
[2021-11-19] MEDS: HYDROcodone/Acetaminophen 10/325 mg Tablet PO PRN ×3 (08:20→20:34)
[2021-11-19] MEDS: Aspirin Chewable 81 MG TAB PO SCH (08:21)
[2021-11-19] MEDS: Carvedilol 3.125 MG TAB PO SCH ×2 (08:21→16:30)
[2021-11-19] MEDS: Cyclobenzaprine 10 MG TAB PO SCH ×2 (08:21→21:12)
[2021-11-19] MEDS: Citalopram 20 MG TAB PO SCH (08:21)
[2021-11-19] MEDS: Furosemide 20 MG TAB PO SCH (08:21)
[2021-11-19] MEDS: Colchicine 0.6 MG TAB PO SCH (08:22)
[2021-11-19] MEDS: Apixaban 2.5 MG TAB PO SCH (08:22)
[2021-11-19] MEDS: Clopidogrel Bisulfate 75 MG TAB PO SCH (08:22)
[2021-11-19] MEDS: Senokot S 8.6-50 MG TAB PO SCH ×2 (08:22→20:33)
[2021-11-19] MEDS: Amiodarone 200 MG TAB PO SCH (08:23)
[2021-11-19] MEDS: predniSONE 1 MG TAB PO SCH (09:01)
[2021-11-19] MEDS: HumaLOG 300 UNITS/3 ML VIAL SC PRN ×2 (11:15→18:30)
[2021-11-19] MEDS ORDERED: Spironolactone 25 MG TAB PO SCH (15:15)
[2021-11-19] MEDS: Lidocaine 5% Patch TD SCH (15:19)
[2021-11-19] MEDS: Atorvastatin Calcium 40 MG TAB PO SCH (20:33)
[2021-11-19] MEDS: Temazepam 15 MG CAP PO SCH (20:33)
[2021-11-19] MEDS: ALPRAZolam 0.25 MG TAB PO PRN (21:12)
[2021-11-20] MEDS: Morphine 4 MG/ML VIAL SLOW IVP PRN ×4 (00:37→19:01)
[2021-11-20] MEDS: HYDROcodone/Acetaminophen 10/325 mg Tablet PO PRN ×3 (00:38→10:30)
[2021-11-20] MEDS: Transdermal Patch Removal TOP SCH (03:56)
[2021-11-20 05:27] LABS: Anion Gap 12 mmol/L (10-20); BUN (Urea Nitrogen) 13 mg/dL (8.4-25.7); Calc. Creatinine Clearance 73 mL/min (70-130); Calcium 9.1 mg/dL (7.8-10.44); Carbon Dioxide 26 mmol/L (23-31); Chloride 105 mmol/L (98-107); Estimated GFR 67; Glucose 131 mg/dL (80-115); Potassium 4.3 mmol/L (3.5-5.1); Sodium 139 mmol/L (136-145)
[2021-11-20] MEDS: Gabapentin 100 MG CAP PO SCH (08:13)
[2021-11-20] MEDS: Clopidogrel Bisulfate 75 MG TAB PO SCH (08:13)
[2021-11-20] MEDS: Senokot S 8.6-50 MG TAB PO SCH ×2 (08:14→22:04)
[2021-11-20] MEDS: Carvedilol 3.125 MG TAB PO SCH ×2 (08:14→16:12)
[2021-11-20] MEDS: predniSONE 1 MG TAB PO SCH (08:15)
[2021-11-20] MEDS: Spironolactone 25 MG TAB PO SCH (08:15)
[2021-11-20] MEDS: Citalopram 20 MG TAB PO SCH (08:15)
[2021-11-20] MEDS: Furosemide 20 MG TAB PO SCH (08:15)
[2021-11-20] MEDS: Amiodarone 200 MG TAB PO SCH (08:15)
[2021-11-20] MEDS: Aspirin Chewable 81 MG TAB PO SCH (08:15)
[2021-11-20] MEDS: Cyclobenzaprine 10 MG TAB PO SCH ×2 (08:30→22:04)
[2021-11-20] MEDS ORDERED: Gabapentin 100 MG CAP PO SCH (10:00)
[2021-11-20] MEDS: Gabapentin 300 MG CAP PO SCH ×2 (16:13→22:04)
[2021-11-20] MEDS: Lidocaine 5% Patch TD SCH (16:14)
[2021-11-20] MEDS: HumaLOG 300 UNITS/3 ML VIAL SC PRN (18:02)
[2021-11-20] MEDS: Atorvastatin Calcium 40 MG TAB PO SCH (22:04)
[2021-11-20] MEDS: Temazepam 15 MG CAP PO SCH (22:05)
[2021-11-21] MEDS: HYDROcodone/Acetaminophen 10/325 mg Tablet PO PRN ×3 (01:44→16:51)
[2021-11-21] MEDS: Transdermal Patch Removal TOP SCH (04:24)
[2021-11-21] MEDS: Levothyroxine Sodium 25 MCG TAB PO SCH (05:17)
[2021-11-21] MEDS: Morphine 4 MG/ML VIAL SLOW IVP PRN (05:17)
[2021-11-21] MEDS: Senokot S 8.6-50 MG TAB PO SCH ×2 (09:24→20:38)
[2021-11-21] MEDS: Gabapentin 300 MG CAP PO SCH ×3 (09:24→20:36)
[2021-11-21] MEDS: Citalopram 20 MG TAB PO SCH (09:25)
[2021-11-21] MEDS: Clopidogrel Bisulfate 75 MG TAB PO SCH (09:25)
[2021-11-21] MEDS: Carvedilol 3.125 MG TAB PO SCH ×2 (09:25→16:49)
[2021-11-21] MEDS: predniSONE 1 MG TAB PO SCH (09:25)
[2021-11-21] MEDS: Spironolactone 25 MG TAB PO SCH (09:25)
[2021-11-21] MEDS: Aspirin Chewable 81 MG TAB PO SCH (09:25)
[2021-11-21] MEDS: Cyclobenzaprine 10 MG TAB PO SCH ×2 (09:25→20:38)
[2021-11-21] MEDS: Amiodarone 200 MG TAB PO SCH (09:25)
[2021-11-21] MEDS: Furosemide 20 MG TAB PO SCH (09:25)
[2021-11-21] MEDS: traMADol HCl 50 MG TAB PO PRN (11:34)
[2021-11-21 12:33] LABS: Troponin I 0.012 ng/mL (< 0.028)
[2021-11-21] MEDS ORDERED: Naproxen 500 MG TAB PO SCH (12:45)
[2021-11-21] MEDS: Lidocaine 5% Patch TD SCH (16:52)
[2021-11-21] MEDS: Temazepam 15 MG CAP PO SCH (20:36)
[2021-11-21] MEDS: Atorvastatin Calcium 40 MG TAB PO SCH (20:36)
[2021-11-21] MEDS: Naproxen 500 MG TAB PO SCH (20:37)
[2021-11-21] MEDS: Acetaminophen 325 MG TAB PO PRN (20:38)
[2021-11-22] MEDS: HYDROcodone/Acetaminophen 10/325 mg Tablet PO PRN ×2 (00:42→10:49)
[2021-11-22] MEDS: Transdermal Patch Removal TOP SCH (04:21)
[2021-11-22] MEDS: Levothyroxine Sodium 25 MCG TAB PO SCH (07:27)
[2021-11-22] MEDS: predniSONE 1 MG TAB PO SCH (08:44)
[2021-11-22] MEDS: Citalopram 20 MG TAB PO SCH (08:44)
[2021-11-22] MEDS: Carvedilol 3.125 MG TAB PO SCH ×2 (08:45→17:23)
[2021-11-22] MEDS: Senokot S 8.6-50 MG TAB PO SCH (08:45)
[2021-11-22] MEDS: Naproxen 500 MG TAB PO SCH (08:45)
[2021-11-22] MEDS: Cyclobenzaprine 10 MG TAB PO SCH (08:45)
[2021-11-22] MEDS: Spironolactone 25 MG TAB PO SCH (08:46)
[2021-11-22] MEDS: Amiodarone 200 MG TAB PO SCH (08:46)
[2021-11-22] MEDS: Clopidogrel Bisulfate 75 MG TAB PO SCH (08:46)
[2021-11-22] MEDS: Gabapentin 300 MG CAP PO SCH ×2 (08:46→14:26)
[2021-11-22] MEDS: Furosemide 20 MG TAB PO SCH (08:46)
[2021-11-22 11:59] VITALS: BMI 26.4
[2021-11-22] MEDS: Lidocaine 5% Patch TD SCH (14:27)
[2021-11-22] MEDS: HumaLOG 300 UNITS/3 ML VIAL SC PRN (14:29)
[2021-11-22 15:47] VITALS: BP 109/55; TEMP 97.2
== END 2021-11-22 17:57 | disposition home or self-care (01) | DRG 206 ==
LOC: NEURO 07:22
PROVIDERS: ADMIT Hospitalist; ATTEND Hospitalist
DX: M94.0 Chondrocostal junction syndrome [Tietze] (principal); S22.31XA Fracture of one rib, right side, initial encounter for closed fracture; I50.32 Chronic diastolic (congestive) heart failure; Z20.822 Contact with and (suspected) exposure to COVID-19; I25.10 Atherosclerotic heart disease of native coronary artery without angina pectoris; K21.00 Gastro-esophageal reflux disease with esophagitis, without bleeding; E03.9 Hypothyroidism, unspecified; E11.9 Type 2 diabetes mellitus without complications; G89.29 Other chronic pain; M54.9 Dorsalgia, unspecified; F41.9 Anxiety disorder, unspecified; Z96.1 Presence of intraocular lens; Z96.641 Presence of right artificial hip joint; W19.XXXA Unspecified fall, initial encounter; E78.5 Hyperlipidemia, unspecified; I48.0 Paroxysmal atrial fibrillation; M25.551 Pain in right hip; R94.31 Abnormal electrocardiogram [ECG] [EKG]; R09.02 Hypoxemia; Z95.1 Presence of aortocoronary bypass graft; Z79.01 Long term (current) use of anticoagulants; Z79.899 Other long term (current) drug therapy; Z88.8 Allergy status to other drugs, medicaments and biological substances; Z91.010 Allergy to peanuts; Z91.09 Other allergy status, other than to drugs and biological substances; Z91.018 Allergy to other foods; Z79.84 Long term (current) use of oral hypoglycemic drugs; Z79.02 Long term (current) use of antithrombotics/antiplatelets; Z79.82 Long term (current) use of aspirin; Z79.52 Long term (current) use of systemic steroids; Z98.890 Other specified postprocedural states; Z90.49 Acquired absence of other specified parts of digestive tract; Z95.5 Presence of coronary angioplasty implant and graft; Z98.1 Arthrodesis status; Z82.49 Family history of ischemic heart disease and other diseases of the circulatory system
CPT/HCPCS: 36415; 36416; 71046; 80048; 83735; 84439; 84443; 84484; 85025; 93005; 93010; 93306; 93798; J1170; J1815; J1940; J2270; J2765; J7512; U0003; U0005

== ENCOUNTER 2021-11-24 14:25 | Inpatient (IN) | payer MEDICARE, OTHER ==
[2021-11-24] MEDS ORDERED: Morphine 4 MG/ML VIAL ONE ×2 (15:06→16:24)
[2021-11-24 15:25] LABS: #Eosinphils 0.1 thou/uL (0.0-0.7); #Lymphocytes 0.5 thou/uL (1.20-3.40); #Monocytes 0.2 thou/uL (0.11-0.59); #Neutrophils 4.4 thou/uL (1.40-6.50); %Basophils 0.9 % (0.0-1.0); %Eosinophils 1.2 % (0.0-10.0); %Lymphocytes 9.2 % (21.0-51.0); %Monocytes 3.8 % (0.0-10.0); %Neutrophils 84.9 % (42.0-75.0); Mean Corpuscular HGB CONC 31.6 g/dL (32.0-36.0); Mean Corpuscular Hemoglobin 24.1 pg (27.0-31.0); Mean Corpuscular Volume 76.3 fL (78.0-98.0); Mean Platelet Volume 7.4 fL (7.4-10.4); Platelet Count 171 thou/uL (130-400); RBC Distribution Width 18.7 % (11.5-14.5); Red Blood Cell (RBC) Count 4.15 mill/uL (4.70-6.10); White Blood Cell (WBC) Count 5.2 thou/uL (4.8-10.8)
[2021-11-24 15:46] LABS: ALT (SGPT) 32 U/L (8-55); AST (SGOT) 48 U/L (5-34); Albumin 3.5 g/dL (3.4-4.8); Alkaline Phosphatase 103 U/L (40-110); Anion Gap 17 mmol/L (10-20); BUN (Urea Nitrogen) 15 mg/dL (8.4-25.7); Bilirubin, Total 1.1 mg/dL (0.2-1.2); Calc. Creatinine Clearance 0 mL/min (70-130); Carbon Dioxide 20 mmol/L (23-31); Chloride 105 mmol/L (98-107); Estimated GFR 72; Globulin 2.2 g/dL (2.4-3.5); Glucose 189 mg/dL (80-115); Lipase 13 U/L (8-78); Potassium 4.1 mmol/L (3.5-5.1); Protein, Total 5.7 g/dL (5.8-8.1); Sodium 138 mmol/L (136-145)
[2021-11-24] MEDS ORDERED: Docusate 100 MG CAP PO PRN (17:24)
[2021-11-24] MEDS ORDERED: Bisacodyl 10 MG SUPP PR SCH (17:30)
[2021-11-24] MEDS ORDERED: ALPRAZolam 0.25 MG TAB PO PRN (17:32)
[2021-11-24 18:55] LABS: Troponin I 0.026 ng/mL (< 0.028)
[2021-11-24] MEDS: Colchicine 0.6 MG TAB PO SCH (20:46)
[2021-11-24] MEDS: Temazepam 15 MG CAP PO SCH (20:46)
[2021-11-24] MEDS: traMADol HCl 50 MG TAB PO PRN (20:47)
[2021-11-24] MEDS: Gabapentin 100 MG CAP PO SCH (20:48)
[2021-11-24] MEDS: Cyclobenzaprine 10 MG TAB PO SCH (20:49)
[2021-11-24] MEDS: Carvedilol 3.125 MG TAB PO SCH (20:49)
[2021-11-24] MEDS: Atorvastatin Calcium 40 MG TAB PO SCH (20:49)
[2021-11-24] MEDS: glipiZIDE 5 MG TAB PO SCH (20:49)
[2021-11-24] MEDS ORDERED: Nitroglycerin 0.4 MG TAB (25 Tab Bottle) SL PRN (21:39)
[2021-11-24] MEDS: Morphine 2 MG/ML VIAL SLOW IVP PRN (22:07)
[2021-11-24 22:12] LABS: Troponin I 0.011 ng/mL (< 0.028)
[2021-11-24] MEDS ORDERED: Communication Order-Pharmacy FS SCH (22:26)
[2021-11-24] MEDS: Acetaminophen 325 MG TAB PO PRN (22:48)
[2021-11-24] MEDS: Enoxaparin Sodium 80 MG/0.8 ML SYRINGE SC SCH (22:49)
[2021-11-25 04:42] LABS: #Lymphocytes 0.5 thou/uL (1.20-3.40); #Monocytes 0.2 thou/uL (0.11-0.59); #Neutrophils 4.1 thou/uL (1.40-6.50); %Eosinophils 0.1 % (0.0-10.0); %Lymphocytes 11.3 % (21.0-51.0); %Monocytes 4.5 % (0.0-10.0); %Neutrophils 84.1 % (42.0-75.0); Hemoglobin 9.9 g/dL (14.0-18.0); Mean Corpuscular HGB CONC 32.8 g/dL (32.0-36.0); Mean Corpuscular Hemoglobin 25.5 pg (27.0-31.0); Mean Corpuscular Volume 77.8 fL (78.0-98.0); Mean Platelet Volume 7.9 fL (7.4-10.4); Platelet Count 146 thou/uL (130-400); RBC Distribution Width 18.4 % (11.5-14.5); Red Blood Cell (RBC) Count 3.88 mill/uL (4.70-6.10); White Blood Cell (WBC) Count 4.8 thou/uL (4.8-10.8)
[2021-11-25 04:49] LABS: Anion Gap 13 mmol/L (10-20); BUN (Urea Nitrogen) 21 mg/dL (8.4-25.7); Calc. Creatinine Clearance 68 mL/min (70-130); Calcium 8.6 mg/dL (7.8-10.44); Carbon Dioxide 23 mmol/L (23-31); Chloride 104 mmol/L (98-107); Estimated GFR 65; Glucose 232 mg/dL (80-115); Potassium 4.1 mmol/L (3.5-5.1); Sodium 136 mmol/L (136-145)
[2021-11-25] MEDS: Levothyroxine Sodium 25 MCG TAB PO SCH (05:20)
[2021-11-25] MEDS: Acetaminophen 325 MG TAB PO PRN (05:25)
[2021-11-25 05:27] VITALS: BMI 24.3
[2021-11-25] MEDS ORDERED: Enoxaparin Sodium 40 MG/0.4 ML SYRINGE SC SCH (09:00)
[2021-11-25] MEDS: Gabapentin 100 MG CAP PO SCH ×2 (09:50→20:24)
[2021-11-25] MEDS: Multivitamin W/ Minerals 1 TAB PO SCH (09:51)
[2021-11-25] MEDS: Clopidogrel Bisulfate 75 MG TAB PO SCH (09:51)
[2021-11-25] MEDS: Amiodarone 200 MG TAB PO SCH (09:51)
[2021-11-25] MEDS: Furosemide 20 MG TAB PO SCH (09:51)
[2021-11-25] MEDS: Spironolactone 25 MG TAB PO SCH (09:51)
[2021-11-25] MEDS: Citalopram 20 MG TAB PO SCH (09:52)
[2021-11-25] MEDS: glipiZIDE 5 MG TAB PO SCH ×2 (09:52→20:25)
[2021-11-25] MEDS: Meloxicam 15 MG TAB PO SCH (09:53)
[2021-11-25] MEDS: Colchicine 0.6 MG TAB PO SCH ×2 (09:53→20:24)
[2021-11-25] MEDS: Carvedilol 3.125 MG TAB PO SCH ×2 (09:53→20:24)
[2021-11-25] MEDS: Cyclobenzaprine 10 MG TAB PO SCH ×2 (09:53→20:24)
[2021-11-25] MEDS: Morphine 2 MG/ML VIAL SLOW IVP PRN (09:55)
[2021-11-25] MEDS: Enoxaparin Sodium 80 MG/0.8 ML SYRINGE SC SCH (11:53)
[2021-11-25] MEDS: Aspirin Chewable 81 MG TAB PO SCH (11:53)
[2021-11-25] MEDS: Polyethylene Glycol 3350 17 GM Packet PO PRN ×2 (11:53→20:25)
[2021-11-25] MEDS: Ketorolac Tromethamine 30 MG/ML VIAL IVP SCH ×2 (15:36→21:12)
[2021-11-25] MEDS: Atorvastatin Calcium 40 MG TAB PO SCH (20:23)
[2021-11-25] MEDS: Temazepam 15 MG CAP PO SCH (20:25)
[2021-11-25] MEDS ORDERED: HumaLOG 300 UNITS/3 ML VIAL SC PRN ×2 (20:37)
[2021-11-25] MEDS ORDERED: Dextrose 5% in Water 1,000 ML IV PRN (20:37)
[2021-11-25] MEDS ORDERED: Dextrose 50% Abboject 50 ML SYRINGE SLOW IVP PRN (20:37)
[2021-11-26] MEDS: Ketorolac Tromethamine 30 MG/ML VIAL IVP SCH (05:45)
[2021-11-26] MEDS: Levothyroxine Sodium 25 MCG TAB PO SCH (05:46)
[2021-11-26 08:19] LABS: BUN (Urea Nitrogen) 27 mg/dL (8.4-25.7); Calc. Creatinine Clearance 58 mL/min (70-130); Calcium 8.7 mg/dL (7.8-10.44); Carbon Dioxide 17 mmol/L (23-31); Chloride 106 mmol/L (98-107); Estimated GFR 53; Glucose 85 mg/dL (80-115); Potassium 4.4 mmol/L (3.5-5.1); Sodium 136 mmol/L (136-145)
[2021-11-26 08:28] LABS: Anion Gap 17 mmol/L (10-20)
[2021-11-26] MEDS: Polyethylene Glycol 3350 17 GM Packet PO PRN (09:57)
[2021-11-26] MEDS: Carvedilol 3.125 MG TAB PO SCH (09:57)
[2021-11-26] MEDS: Aspirin Chewable 81 MG TAB PO SCH (09:57)
[2021-11-26] MEDS: Gabapentin 100 MG CAP PO SCH (09:57)
[2021-11-26] MEDS: Clopidogrel Bisulfate 75 MG TAB PO SCH (09:57)
[2021-11-26] MEDS: Meloxicam 15 MG TAB PO SCH (09:58)
[2021-11-26] MEDS: Citalopram 20 MG TAB PO SCH (09:58)
[2021-11-26] MEDS: Furosemide 20 MG TAB PO SCH (09:58)
[2021-11-26] MEDS: glipiZIDE 5 MG TAB PO SCH (09:59)
[2021-11-26] MEDS: Multivitamin W/ Minerals 1 TAB PO SCH (09:59)
[2021-11-26] MEDS: Cyclobenzaprine 10 MG TAB PO SCH (09:59)
[2021-11-26] MEDS: Amiodarone 200 MG TAB PO SCH (09:59)
[2021-11-26] MEDS: Spironolactone 25 MG TAB PO SCH (09:59)
[2021-11-26] MEDS: Colchicine 0.6 MG TAB PO SCH (09:59)
[2021-11-26] MEDS: traMADol HCl 50 MG TAB PO PRN (10:26)
[2021-11-26] MEDS ORDERED: Sodium Chloride 0.9% 1,000 ML IV SCH (10:45)
[2021-11-26 11:03] LABS: #Eosinphils 0.1 thou/uL (0.0-0.7); #Lymphocytes 0.9 thou/uL (1.20-3.40); #Monocytes 0.4 thou/uL (0.11-0.59); #Neutrophils 2.5 thou/uL (1.40-6.50); %Basophils 0.6 % (0.0-1.0); %Eosinophils 2.5 % (0.0-10.0); %Lymphocytes 23.1 % (21.0-51.0); %Monocytes 9.8 % (0.0-10.0); %Neutrophils 63.9 % (42.0-75.0); Hemoglobin 10.2 g/dL (14.0-18.0); Hypochromia SLIGHT = 6-15 cells (100X) (0-5/hpf); MDiff Complete? YES; Mean Corpuscular HGB CONC 30.1 g/dL (32.0-36.0); Mean Corpuscular Hemoglobin 23.8 pg (27.0-31.0); Mean Corpuscular Volume 78.8 fL (78.0-98.0); Mean Platelet Volume 8.6 fL (7.4-10.4); Microcytosis SLIGHT = 6-15 cells (100X) (0-5/hpf); Platelet Count 142 thou/uL (130-400); Platelet Morphology Comment Appears Adequate; Polychromasia SLIGHT = 2-3 cells (100X) (0-2/hpf); RBC Distribution Width 18.4 % (11.5-14.5); Red Blood Cell (RBC) Count 4.28 mill/uL (4.70-6.10); White Blood Cell (WBC) Count 3.9 thou/uL (4.8-10.8)
[2021-11-26 11:55] VITALS: BP 126/74; TEMP 98
== END 2021-11-26 15:00 | disposition home or self-care (01) | DRG 313 ==
LOC: ERS 14:25 → 2NO 16:29 → OBSVTOIN 11-26 09:20
PROVIDERS: ADMIT Internal Medicine; ATTEND Internal Medicine
DX: R07.2 Precordial pain (principal); I13.0 Hypertensive heart and chronic kidney disease with heart failure and stage 1 through stage 4 chronic kidney disease, or unspecified chronic kidney disease; R07.89 Other chest pain; Z20.822 Contact with and (suspected) exposure to COVID-19; I48.0 Paroxysmal atrial fibrillation; I25.10 Atherosclerotic heart disease of native coronary artery without angina pectoris; F41.9 Anxiety disorder, unspecified; I50.9 Heart failure, unspecified; G89.29 Other chronic pain; M54.9 Dorsalgia, unspecified; K59.00 Constipation, unspecified; E11.40 Type 2 diabetes mellitus with diabetic neuropathy, unspecified; N18.9 Chronic kidney disease, unspecified; E11.22 Type 2 diabetes mellitus with diabetic chronic kidney disease; G25.81 Restless legs syndrome; Z88.8 Allergy status to other drugs, medicaments and biological substances; Z91.018 Allergy to other foods; Z91.010 Allergy to peanuts; Z79.84 Long term (current) use of oral hypoglycemic drugs; Z79.02 Long term (current) use of antithrombotics/antiplatelets; Z79.01 Long term (current) use of anticoagulants; Z79.890 Hormone replacement therapy; Z79.1 Long term (current) use of non-steroidal anti-inflammatories (NSAID); Z95.1 Presence of aortocoronary bypass graft; Z95.5 Presence of coronary angioplasty implant and graft; Z98.1 Arthrodesis status; Z90.49 Acquired absence of other specified parts of digestive tract; Z82.49 Family history of ischemic heart disease and other diseases of the circulatory system; Z83.6 Family history of other diseases of the respiratory system
CPT/HCPCS: 36415; 36416; 71045; 80048; 80053; 83690; 83880; 84484; 85025; 93005; 93010; 94760; 96374; 96376; J1650; J1815; J1885; J2270; U0003; U0005

== ENCOUNTER 2022-02-19 13:16 | Observation (INO) | payer MEDICARE, OTHER ==
[2022-02-19] MEDS ORDERED: Nitroglycerin 0.4 MG TAB 1 EACH ONE ×2 (14:43→14:49)
[2022-02-19 14:59] LABS: Hemoglobin 10.7 g/dL (14.0-18.0); Mean Corpuscular HGB CONC 30.5 g/dL (32.0-36.0); Mean Corpuscular Hemoglobin 22.6 pg (27.0-31.0); Mean Corpuscular Volume 74.2 fl (78.0-98.0); Mean Platelet Volume 9.6 fL (7.4-10.4); Platelet Count 141 10x3/uL (130-400); Red Blood Cell (RBC) Count 4.72 mill/uL (4.70-6.10); White Blood Cell (WBC) Count 6.6 10x3/uL (4.8-10.8)
[2022-02-19] MEDS ORDERED: Ketorolac Tromethamine 30 MG/ML VIAL ONE (15:08)
[2022-02-19] MEDS ORDERED: Ondansetron PF 4 MG/2 ML Vial ONE ×2 (15:11→16:17)
[2022-02-19 15:18] LABS: Band 4 % (5-11); Eosinophils 4 % (0-10); Hypochromia SLIGHT = 6-15 cells (100X) (0-5/hpf); Lymphocytes 8 % (21-51); MDiff Complete? YES; Microcytosis SLIGHT = 6-15 cells (100X) (0-5/hpf); Monocytes 4 % (0-10); Neutrophil 76 % (42-75); Platelet Morphology Comment Appears Adequate; Polychromasia SLIGHT = 2-3 cells (100X) (0-2/hpf); Reactive Lymphocytes 1 % (0-10); Stomatocytes SLIGHT = 2-5 cells (100X) (0-1/hpf)
[2022-02-19 15:21] LABS: AST (SGOT) 32 U/L (5-34); Albumin 4.2 g/dL (3.4-4.8); Alkaline Phosphatase 117 U/L (40-110); Anion Gap 16 mmol/L (10-20); BUN (Urea Nitrogen) 19 mg/dL (8.4-25.7); Bilirubin, Total 1.3 mg/dL (0.2-1.2); Calc. Creatinine Clearance 0 mL/min (70-130); Calcium 9.5 mg/dL (7.8-10.44); Carbon Dioxide 21 mmol/L (23-31); Chloride 105 mmol/L (98-107); Estimated GFR 42; Globulin 2.7 g/dL (2.4-3.5); Glucose 103 mg/dL (80-115); Potassium 4.2 mmol/L (3.5-5.1); Protein, Total 6.9 g/dL (5.8-8.1); Sodium 138 mmol/L (136-145)
[2022-02-19 15:33] LABS: ALT (SGPT) 24 U/L (8-55)
[2022-02-19] MEDS ORDERED: FENTANYL 50 MCG/ML 1 ML VIAL ONE (16:12)
[2022-02-19] MEDS ORDERED: Dextrose 5% in Water 1,000 ML IV PRN (17:17)
[2022-02-19] MEDS ORDERED: Dextrose 50% Abboject 50 ML SYRINGE SLOW IVP PRN (17:17)
[2022-02-19] MEDS ORDERED: HumaLOG 300 UNITS/3 ML VIAL SC PRN ×2 (17:17)
[2022-02-19] MEDS ORDERED: Ondansetron PF 4 MG/2 ML Vial IVP PRN (17:23)
[2022-02-19] MEDS ORDERED: Furosemide 40 MG/4 ML VIAL SLOW IVP SCH (17:30)
[2022-02-19] MEDS ORDERED: Senokot S 8.6-50 MG TAB PO PRN (17:32)
[2022-02-19] MEDS ORDERED: Acetaminophen 325 MG TAB PO PRN (17:32)
[2022-02-19] MEDS ORDERED: Promethazine HCl 25 MG in Sodium Chloride 0.9% 50 ML IVPB SCH (17:45)
[2022-02-19 19:16] LABS: Troponin I 0.014 ng/mL (< 0.028)
[2022-02-19] MEDS ORDERED: Apixaban 2.5 MG TAB PO SCH (21:00)
[2022-02-19 22:22] LABS: Troponin I 0.015 ng/mL (< 0.028)
[2022-02-19] MEDS: Ketorolac Tromethamine 30 MG/ML VIAL IVP PRN (22:45)
[2022-02-19] MEDS: Gabapentin 100 MG CAP PO SCH (22:45)
[2022-02-19] MEDS: Atorvastatin Calcium 40 MG TAB PO SCH (22:45)
[2022-02-20] MEDS: Levothyroxine Sodium 25 MCG TAB PO SCH (07:13)
[2022-02-20] MEDS: Pantoprazole 40 MG VIAL IVP SCH ×2 (07:32→17:22)
[2022-02-20] MEDS: Citalopram 20 MG TAB PO SCH (08:32)
[2022-02-20] MEDS: Aspirin Chewable 81 MG TAB PO SCH (08:32)
[2022-02-20] MEDS: Gabapentin 100 MG CAP PO SCH ×2 (08:32→21:57)
[2022-02-20] MEDS: Furosemide 20 MG/2 ML VIAL SLOW IVP SCH (08:33)
[2022-02-20] MEDS: Sodium Bicarbonate Tab 325 MG TAB PO SCH ×2 (08:42→21:57)
[2022-02-20] MEDS ORDERED: Clopidogrel Bisulfate 75 MG TAB PO SCH (09:00)
[2022-02-20 09:23] VITALS: BMI 25.2
[2022-02-20 09:29] LABS: Anion Gap 14 mmol/L (10-20); BUN (Urea Nitrogen) 24 mg/dL (8.4-25.7); Calc. Creatinine Clearance 50 mL/min (70-130); Calcium 8.5 mg/dL (7.8-10.44); Carbon Dioxide 24 mmol/L (23-31); Chloride 107 mmol/L (98-107); Estimated GFR 45; Glucose 76 mg/dL (80-115); Potassium 3.8 mmol/L (3.5-5.1); Sodium 141 mmol/L (136-145)
[2022-02-20] MEDS: Ketorolac Tromethamine 30 MG/ML VIAL IVP PRN (10:38)
[2022-02-20 10:46] LABS: #Lymphocytes 0.2 thou/uL (1.20-3.40); #Monocytes 0.3 thou/uL (0.11-0.59); #Neutrophils 3.1 thou/uL (1.40-6.50); %Basophils 0.1 % (0.0-1.0); %Eosinophils 0.6 % (0.0-10.0); %Lymphocytes 4.8 % (21.0-51.0); %Monocytes 8.9 % (0.0-10.0); %Neutrophils 85.5 % (42.0-75.0); Anisocytosis MODERATE=16-30 cells (100X) (0-5/hpf); Elliptocytes SLIGHT = 2-5 cells (100X) (0-1/hpf); Hypochromia MODERATE=16-30 cells (100X) (0-5/hpf); MDiff Complete? YES; Mean Corpuscular HGB CONC 29.6 g/dL (32.0-36.0); Mean Corpuscular Volume 74.3 fl (78.0-98.0); Microcytosis MODERATE=15-30 cells (100X) (0-5/hpf); Ovalocytes SLIGHT = 2-5 cells (100X) (0-1/hpf); Platelet Count 105 10x3/uL (130-400); Platelet Morphology Comment Appears Decreased; Polychromasia SLIGHT = 2-3 cells (100X) (0-2/hpf); RBC Distribution Width 20.3 % (11.5-14.5); Red Blood Cell (RBC) Count 4.09 mill/uL (4.70-6.10); White Blood Cell (WBC) Count 3.6 10x3/uL (4.8-10.8)
[2022-02-20] MEDS: traMADol HCl 50 MG TAB PO PRN ×2 (17:22→22:56)
[2022-02-20] MEDS: methylPREDNISolone Sod Succ 40 MG VIAL IVP SCH (21:57)
[2022-02-20] MEDS: Atorvastatin Calcium 40 MG TAB PO SCH (21:57)
[2022-02-21] MEDS: Levothyroxine Sodium 25 MCG TAB PO SCH (05:15)
[2022-02-21] MEDS: methylPREDNISolone Sod Succ 40 MG VIAL IVP SCH ×2 (05:15→13:33)
[2022-02-21] MEDS: traMADol HCl 50 MG TAB PO PRN ×2 (05:16→11:45)
[2022-02-21 05:20] LABS: Anion Gap 14 mmol/L (10-20); Anisocytosis SLIGHT = 6-15 cells (100X) (0-5/hpf); BUN (Urea Nitrogen) 29 mg/dL (8.4-25.7); Calc. Creatinine Clearance 55 mL/min (70-130); Calcium 8.5 mg/dL (7.8-10.44); Carbon Dioxide 22 mmol/L (23-31); Chloride 106 mmol/L (98-107); Estimated GFR 51; Glucose 161 mg/dL (80-115); Hypochromia SLIGHT = 6-15 cells (100X) (0-5/hpf); MDiff Complete? YES; Microcytosis SLIGHT = 6-15 cells (100X) (0-5/hpf); Potassium 4.4 mmol/L (3.5-5.1); Sodium 138 mmol/L (136-145)
[2022-02-21 05:21] LABS: #Lymphocytes 0.2 thou/uL (1.20-3.40); #Monocytes 0.1 thou/uL (0.11-0.59); #Neutrophils 1.8 thou/uL (1.40-6.50); %Eosinophils 0.7 % (0.0-10.0); %Lymphocytes 10.9 % (21.0-51.0); %Neutrophils 84.4 % (42.0-75.0); Hemoglobin 9.3 g/dL (14.0-18.0); Mean Corpuscular HGB CONC 30.8 g/dL (32.0-36.0); Mean Corpuscular Hemoglobin 22.9 pg (27.0-31.0); Mean Corpuscular Volume 74.2 fl (78.0-98.0); Mean Platelet Volume 8.1 fL (7.4-10.4); Platelet Count 126 10x3/uL (130-400); Red Blood Cell (RBC) Count 4.06 mill/uL (4.70-6.10); White Blood Cell (WBC) Count 2.2 10x3/uL (4.8-10.8)
[2022-02-21 07:40] VITALS: BP 143/76; TEMP 97.8
[2022-02-21] MEDS: Aspirin Chewable 81 MG TAB PO SCH (08:53)
[2022-02-21] MEDS: Sodium Bicarbonate Tab 325 MG TAB PO SCH (08:53)
[2022-02-21] MEDS: Gabapentin 100 MG CAP PO SCH (08:53)
[2022-02-21] MEDS: Citalopram 20 MG TAB PO SCH (08:54)
[2022-02-21] MEDS: Furosemide 20 MG/2 ML VIAL SLOW IVP SCH (08:54)
== END 2022-02-21 14:00 | disposition home or self-care (01) ==
LOC: ERS 13:16 → 2NO 16:08
PROVIDERS: ADMIT Internal Medicine; ATTEND Internal Medicine
DX: R07.9 Chest pain, unspecified (principal); I25.10 Atherosclerotic heart disease of native coronary artery without angina pectoris; I48.0 Paroxysmal atrial fibrillation; G89.29 Other chronic pain; M54.50 Low back pain, unspecified; I25.2 Old myocardial infarction; E03.9 Hypothyroidism, unspecified; I13.0 Hypertensive heart and chronic kidney disease with heart failure and stage 1 through stage 4 chronic kidney disease, or unspecified chronic kidney disease; E11.22 Type 2 diabetes mellitus with diabetic chronic kidney disease; N18.9 Chronic kidney disease, unspecified; I50.33 Acute on chronic diastolic (congestive) heart failure; N17.9 Acute kidney failure, unspecified; J34.1 Cyst and mucocele of nose and nasal sinus; M50.31 Other cervical disc degeneration, high cervical region; J90 Pleural effusion, not elsewhere classified; E11.40 Type 2 diabetes mellitus with diabetic neuropathy, unspecified; Z79.01 Long term (current) use of anticoagulants; Z79.02 Long term (current) use of antithrombotics/antiplatelets; Z79.1 Long term (current) use of non-steroidal anti-inflammatories (NSAID); Z79.52 Long term (current) use of systemic steroids; Z79.82 Long term (current) use of aspirin; Z79.84 Long term (current) use of oral hypoglycemic drugs; Z79.890 Hormone replacement therapy; Z79.899 Other long term (current) drug therapy; Z88.8 Allergy status to other drugs, medicaments and biological substances; Z91.010 Allergy to peanuts; Z91.018 Allergy to other foods; Z91.048 Other nonmedicinal substance allergy status; Z95.1 Presence of aortocoronary bypass graft; Z95.5 Presence of coronary angioplasty implant and graft; Z98.1 Arthrodesis status; Z20.822 Contact with and (suspected) exposure to COVID-19
CPT/HCPCS: 70450; 71045; 71275; 72125; 80048 ×2; 80053; 82728; 82962 ×3; 83880; 84484 ×2; 85025 ×3; 93005; 96374; 96375; 96376; 99285; J3010; U0003; U0005; 36415; 36416; C9113; G0378; J1885; J1940; J2405; J2550; J2920; Q9967

== ENCOUNTER 2022-03-05 14:16 | Inpatient (IN) | payer MEDICARE, OTHER ==
[2022-03-05 15:17] LABS: Hemoglobin 9.6 g/dL (14.0-18.0); Mean Corpuscular HGB CONC 30.6 g/dL (32.0-36.0); Mean Corpuscular Hemoglobin 22.6 pg (27.0-31.0); Mean Corpuscular Volume 73.9 fl (78.0-98.0); Mean Platelet Volume 8.1 fL (7.4-10.4); Platelet Count 173 10x3/uL (130-400); RBC Distribution Width 19.9 % (11.5-14.5); Red Blood Cell (RBC) Count 4.24 mill/uL (4.70-6.10); White Blood Cell (WBC) Count 18.5 10x3/uL (4.8-10.8)
[2022-03-05 15:37] LABS: ALT (SGPT) 27 U/L (8-55); AST (SGOT) 33 U/L (5-34); Albumin 3.6 g/dL (3.4-4.8); Alkaline Phosphatase 115 U/L (40-110); Anion Gap 13 mmol/L (10-20); BUN (Urea Nitrogen) 17 mg/dL (8.4-25.7); Bilirubin, Total 1.8 mg/dL (0.2-1.2); Calc. Creatinine Clearance 0 mL/min (70-130); Calcium 8.6 mg/dL (7.8-10.44); Carbon Dioxide 24 mmol/L (23-31); Chloride 101 mmol/L (98-107); Estimated GFR 38; Globulin 3.1 g/dL (2.4-3.5); Glucose 104 mg/dL (80-115); Potassium 4.2 mmol/L (3.5-5.1); Protein, Total 6.7 g/dL (5.8-8.1); Sodium 134 mmol/L (136-145)
[2022-03-05 15:49] LABS: Anisocytosis SLIGHT = 6-15 cells (100X) (0-5/hpf); Band 10 % (5-11); Hypochromia SLIGHT = 6-15 cells (100X) (0-5/hpf); Lymphocytes 4 % (21-51); MDiff Complete? YES; Microcytosis SLIGHT = 6-15 cells (100X) (0-5/hpf); Monocytes 1 % (0-10); Neutrophil 84 % (42-75); Ovalocytes SLIGHT = 2-5 cells (100X) (0-1/hpf); Platelet Morphology Comment Appears Adequate; Polychromasia SLIGHT = 2-3 cells (100X) (0-2/hpf)
[2022-03-05] MEDS ORDERED: Ondansetron PF 4 MG/2 ML Vial IVP PRN (16:36)
[2022-03-05] MEDS ORDERED: Senokot S 8.6-50 MG TAB PO PRN (16:36)
[2022-03-05] MEDS ORDERED: Acetaminophen 325 MG TAB PO PRN (16:36)
[2022-03-05] MEDS ORDERED: Ondansetron ODT 4 MG TAB PO PRN (16:36)
[2022-03-05] MEDS ORDERED: Calcium Carbonate 500 MG ChewTAB PO PRN (16:36)
[2022-03-05] MEDS ORDERED: Hydrocortisone Sod Succ/PF 100 mg/2 ml Vial IVP SCH (16:45)
[2022-03-05] MEDS ORDERED: Dextrose 5 % And 0.9 % NaCl 1,000 ML IV SCH (17:00)
[2022-03-05] MEDS ORDERED: Hydrocortisone Sod Succ/PF 100 mg/2 ml Vial ONE (18:24)
[2022-03-05 18:46] LABS: SARS-CoV-2 NAA Rapid Test Not Detected (NotDetected)
[2022-03-05] MEDS ORDERED: Ampicillin/Sulbactam 1.5 GM in Sodium Chloride 0.9% 100 ML IVPB SCH ×2 (19:00→23:59)
[2022-03-05] MEDS: Apixaban 2.5 MG TAB PO SCH (21:41)
[2022-03-05] MEDS: Carvedilol 3.125 MG TAB PO SCH (21:42)
[2022-03-05] MEDS ORDERED: traMADol HCl 50 MG TAB PO SCH ×2 (22:45)
[2022-03-06] MEDS: Ampicillin/Sulbactam 1.5 GM in Sodium Chloride 0.9% 100 ML IVPB SCH ×3 (01:17→14:41)
[2022-03-06] MEDS ORDERED: Guaifenesin DM 100-10/5 ML UDCUP PO PRN (03:31)
[2022-03-06 04:14] LABS: Hemoglobin A1c 5.4 % (4.0-6.0)
[2022-03-06 04:34] LABS: ALT (SGPT) 26 U/L (8-55); AST (SGOT) 28 U/L (5-34); Albumin 3.1 g/dL (3.4-4.8); Alkaline Phosphatase 105 U/L (40-110); Anion Gap 14 mmol/L (10-20); BUN (Urea Nitrogen) 23 mg/dL (8.4-25.7); Bilirubin, Total 1.7 mg/dL (0.2-1.2); CK (CPK) 186 U/L (30-200); Calc. Creatinine Clearance 49 mL/min (70-130); Calcium 8.4 mg/dL (7.8-10.44); Carbon Dioxide 22 mmol/L (23-31); Chloride 100 mmol/L (98-107); Estimated GFR 41; Globulin 2.7 g/dL (2.4-3.5); Glucose 297 mg/dL (80-115); Potassium 4.6 mmol/L (3.5-5.1); Protein, Total 5.8 g/dL (5.8-8.1); Sodium 131 mmol/L (136-145)
[2022-03-06 04:44] LABS: #Lymphocytes 0.3 thou/uL (1.20-3.40); #Monocytes 0.2 thou/uL (0.11-0.59); #Neutrophils 9.4 thou/uL (1.40-6.50); %Eosinophils 0.1 % (0.0-10.0); %Lymphocytes 2.7 % (21.0-51.0); %Monocytes 2.3 % (0.0-10.0); %Neutrophils 94.9 % (42.0-75.0); Anisocytosis SLIGHT = 6-15 cells (100X) (0-5/hpf); Hemoglobin 9.3 g/dL (14.0-18.0); MDiff Complete? YES; Mean Corpuscular HGB CONC 32.9 g/dL (32.0-36.0); Mean Corpuscular Hemoglobin 24.2 pg (27.0-31.0); Mean Corpuscular Volume 73.6 fl (78.0-98.0); Microcytosis SLIGHT = 6-15 cells (100X) (0-5/hpf); Platelet Count 111 10x3/uL (130-400); Platelet Morphology Comment Appears Decreased; RBC Distribution Width 19.9 % (11.5-14.5); Red Blood Cell (RBC) Count 3.82 mill/uL (4.70-6.10); White Blood Cell (WBC) Count 9.9 10x3/uL (4.8-10.8)
[2022-03-06] MEDS ORDERED: Levothyroxine Sodium 25 MCG TAB PO SCH (06:00)
[2022-03-06 06:26] VITALS: BMI 24.7
[2022-03-06] MEDS ORDERED: FLU VACC QS2022-23(65YR UP)/PF 240 MCG/0.7 ML SYRINGE IM ONE (09:00)
[2022-03-06] MEDS ORDERED: Amiodarone 200 MG TAB PO SCH (09:00)
[2022-03-06] MEDS ORDERED: Citalopram 20 MG TAB PO SCH (09:00)
[2022-03-06] MEDS ORDERED: Clopidogrel Bisulfate 75 MG TAB PO SCH (09:00)
[2022-03-06] MEDS: Carvedilol 3.125 MG TAB PO SCH (09:47)
[2022-03-06] MEDS: Apixaban 2.5 MG TAB PO SCH (09:47)
[2022-03-06 12:11] VITALS: TEMP 97.8
[2022-03-06 12:47] VITALS: BP 113/67
== END 2022-03-06 15:30 | disposition home or self-care (01) | DRG 637 ==
LOC: ERS 14:16 → ERHOLD 15:26 → IMCU/EMU 22:30
PROVIDERS: ADMIT Internal Medicine; ATTEND Internal Medicine
DX: E11.649 Type 2 diabetes mellitus with hypoglycemia without coma (principal); G93.41 Metabolic encephalopathy; I50.23 Acute on chronic systolic (congestive) heart failure; I13.0 Hypertensive heart and chronic kidney disease with heart failure and stage 1 through stage 4 chronic kidney disease, or unspecified chronic kidney disease; E11.40 Type 2 diabetes mellitus with diabetic neuropathy, unspecified; E11.22 Type 2 diabetes mellitus with diabetic chronic kidney disease; N18.9 Chronic kidney disease, unspecified; G25.81 Restless legs syndrome; Z96.641 Presence of right artificial hip joint; G89.4 Chronic pain syndrome; I48.91 Unspecified atrial fibrillation; E03.9 Hypothyroidism, unspecified; N17.9 Acute kidney failure, unspecified; F41.9 Anxiety disorder, unspecified; Z90.49 Acquired absence of other specified parts of digestive tract; Z95.5 Presence of coronary angioplasty implant and graft; Z95.1 Presence of aortocoronary bypass graft; Z91.010 Allergy to peanuts; Z88.8 Allergy status to other drugs, medicaments and biological substances; Z79.84 Long term (current) use of oral hypoglycemic drugs; Z79.899 Other long term (current) drug therapy; Z79.01 Long term (current) use of anticoagulants; Z79.890 Hormone replacement therapy
CPT/HCPCS: 36415; 36416; 70450; 71045; 80053; 82533; 82550; 83036; 83880; 84145; 84443; 85025; 94760; J0295; J1720; J3490; J7042; U0002

== ENCOUNTER 2022-04-25 18:01 | Inpatient (IN) | payer MEDICARE, OTHER ==
[2022-04-25] MEDS ORDERED: Fentanyl 100 MCG/2 ML VIAL ONE ×2 (18:39→19:47)
[2022-04-25 18:42] LABS: #Eosinphils 0.2 thou/uL (0.0-0.7); #Lymphocytes 0.6 thou/uL (1.20-3.40); #Monocytes 0.5 thou/uL (0.11-0.59); #Neutrophils 2.8 thou/uL (1.40-6.50); %Eosinophils 4.6 % (0.0-10.0); %Lymphocytes 14.5 % (21.0-51.0); %Monocytes 12.6 % (0.0-10.0); %Neutrophils 68.2 % (42.0-75.0); Hemoglobin 8.9 g/dL (14.0-18.0); Mean Corpuscular Hemoglobin 22.5 pg (27.0-31.0); Mean Corpuscular Volume 72.5 fl (78.0-98.0); Mean Platelet Volume 6.7 fL (7.4-10.4); Platelet Count 135 10x3/uL (130-400); RBC Distribution Width 19.1 % (11.5-14.5); Red Blood Cell (RBC) Count 3.97 mill/uL (4.70-6.10); White Blood Cell (WBC) Count 4.1 10x3/uL (4.8-10.8)
[2022-04-25 19:07] LABS: ALT (SGPT) 14 U/L (8-55); AST (SGOT) 28 U/L (5-34); Albumin 3.5 g/dL (3.4-4.8); Alkaline Phosphatase 127 U/L (40-110); Anion Gap 13 mmol/L (10-20); BUN (Urea Nitrogen) 19 mg/dL (8.4-25.7); Bilirubin, Total 1.2 mg/dL (0.2-1.2); Calc. Creatinine Clearance 0 mL/min (70-130); Calcium 8.5 mg/dL (7.8-10.44); Carbon Dioxide 22 mmol/L (23-31); Chloride 104 mmol/L (98-107); Estimated GFR 54; Globulin 2.4 g/dL (2.4-3.5); Glucose 106 mg/dL (80-115); Lipase 14 U/L (8-78); Potassium 4.5 mmol/L (3.5-5.1); Protein, Total 5.9 g/dL (5.8-8.1); Sodium 134 mmol/L (136-145)
[2022-04-25] MEDS ORDERED: Temazepam 15 MG CAP PO PRN (20:23)
[2022-04-25] MEDS ORDERED: Morphine 4 MG/ML VIAL ONE (20:48)
[2022-04-25] MEDS ORDERED: Dextrose 5% in Water 1,000 ML IV PRN (21:01)
[2022-04-25] MEDS ORDERED: HumaLOG 300 UNITS/3 ML VIAL SC PRN (21:01)
[2022-04-25] MEDS ORDERED: Dextrose 50% Abboject 50 ML SYRINGE SLOW IVP PRN (21:01)
[2022-04-25] MEDS ORDERED: Furosemide 40 MG/4 ML VIAL SLOW IVP SCH (22:00)
[2022-04-25] MEDS: traMADol HCl 50 MG TAB PO PRN (22:36)
[2022-04-25] MEDS: Gabapentin 300 MG CAP PO SCH (22:37)
[2022-04-25] MEDS: Apixaban 2.5 MG TAB PO SCH (22:37)
[2022-04-25 23:09] VITALS: BMI 24.4
[2022-04-25 23:46] LABS: Troponin I Less than 0.010 ng/mL (< 0.028)
[2022-04-26] MEDS: Morphine 4 MG/ML VIAL SLOW IVP PRN ×5 (01:11→20:29)
[2022-04-26 04:52] LABS: #Eosinphils 0.3 thou/uL (0.0-0.7); #Lymphocytes 0.8 thou/uL (1.20-3.40); #Monocytes 0.6 thou/uL (0.11-0.59); #Neutrophils 2.6 thou/uL (1.40-6.50); %Basophils 0.7 % (0.0-1.0); %Eosinophils 6.5 % (0.0-10.0); %Lymphocytes 18.1 % (21.0-51.0); %Monocytes 13.6 % (0.0-10.0); %Neutrophils 61.1 % (42.0-75.0); Hemoglobin 9.1 g/dL (14.0-18.0); Mean Corpuscular HGB CONC 29.8 g/dL (32.0-36.0); Mean Corpuscular Hemoglobin 22.1 pg (27.0-31.0); Mean Corpuscular Volume 74.1 fl (78.0-98.0); Mean Platelet Volume 7.8 fL (7.4-10.4); Platelet Count 154 10x3/uL (130-400); RBC Distribution Width 19.2 % (11.5-14.5); Red Blood Cell (RBC) Count 4.11 mill/uL (4.70-6.10); White Blood Cell (WBC) Count 4.2 10x3/uL (4.8-10.8)
[2022-04-26 04:54] LABS: Iron 18 ug/dL (65-175); Iron Binding Capacity, Total 358 mcg/dL (261-462); Phosphorus 4.6 mg/dL (2.3-4.7)
[2022-04-26 04:55] LABS: Anion Gap 12 mmol/L (10-20); BUN (Urea Nitrogen) 18 mg/dL (8.4-25.7); Calc. Creatinine Clearance 49 mL/min (70-130); Calcium 8.7 mg/dL (7.8-10.44); Carbon Dioxide 23 mmol/L (23-31); Chloride 103 mmol/L (98-107); Estimated GFR 45; Glucose 112 mg/dL (80-115); Magnesium 1.9 mg/dL (1.6-2.6); Potassium 4.5 mmol/L (3.5-5.1); Sodium 133 mmol/L (136-145)
[2022-04-26] MEDS: Levothyroxine Sodium 25 MCG TAB PO SCH (05:28)
[2022-04-26] MEDS: Furosemide 40 MG/4 ML VIAL SLOW IVP SCH ×2 (05:28→13:11)
[2022-04-26] MEDS: Empagliflozin 10 MG TAB PO SCH (08:46)
[2022-04-26] MEDS: Atorvastatin Calcium 40 MG TAB PO SCH (08:46)
[2022-04-26] MEDS: Spironolactone 25 MG TAB PO SCH (08:46)
[2022-04-26] MEDS: Apixaban 2.5 MG TAB PO SCH (08:46)
[2022-04-26] MEDS: Citalopram 20 MG TAB PO SCH (08:46)
[2022-04-26] MEDS: Amiodarone 200 MG TAB PO SCH (08:46)
[2022-04-26] MEDS: Iron, Sodium Ferric Gluconate 125 MG in Sodium Chloride 0.9% 100 ML IVPB SCH (13:57)
[2022-04-26] MEDS ORDERED: Folic Acid/Vit B Comp W-C PO SCH (16:45)
[2022-04-26] MEDS: Gabapentin 300 MG CAP PO SCH (20:30)
[2022-04-27] MEDS: Morphine 4 MG/ML VIAL SLOW IVP PRN ×7 (00:26→22:02)
[2022-04-27] MEDS: traMADol HCl 50 MG TAB PO PRN ×3 (00:35→23:58)
[2022-04-27] MEDS ORDERED: Gabapentin 300 MG CAP PO SCH ×2 (04:30→21:00)
[2022-04-27 04:52] LABS: Anion Gap 14 mmol/L (10-20); BUN (Urea Nitrogen) 18 mg/dL (8.4-25.7); Calc. Creatinine Clearance 53 mL/min (70-130); Carbon Dioxide 24 mmol/L (23-31); Chloride 104 mmol/L (98-107); Estimated GFR 49; Glucose 115 mg/dL (80-115); Potassium 3.9 mmol/L (3.5-5.1); Sodium 138 mmol/L (136-145)
[2022-04-27 04:56] LABS: Troponin I Less than 0.010 ng/mL (< 0.028)
[2022-04-27 05:10] LABS: #Eosinphils 0.3 thou/uL (0.0-0.7); #Lymphocytes 0.6 thou/uL (1.20-3.40); #Monocytes 0.6 thou/uL (0.11-0.59); #Neutrophils 3.4 thou/uL (1.40-6.50); %Basophils 0.1 % (0.0-1.0); %Eosinophils 5.3 % (0.0-10.0); %Lymphocytes 12.8 % (21.0-51.0); %Monocytes 11.2 % (0.0-10.0); %Neutrophils 70.5 % (42.0-75.0); Anisocytosis SLIGHT = 6-15 cells (100X) (0-5/hpf); Hemoglobin 9.3 g/dL (14.0-18.0); Hypochromia SLIGHT = 6-15 cells (100X) (0-5/hpf); MDiff Complete? YES; Mean Corpuscular HGB CONC 29.9 g/dL (32.0-36.0); Mean Corpuscular Volume 73.6 fl (78.0-98.0); Microcytosis SLIGHT = 6-15 cells (100X) (0-5/hpf); Platelet Count 152 10x3/uL (130-400); RBC Distribution Width 19.3 % (11.5-14.5); Red Blood Cell (RBC) Count 4.22 mill/uL (4.70-6.10); White Blood Cell (WBC) Count 4.9 10x3/uL (4.8-10.8)
[2022-04-27] MEDS: Furosemide 40 MG/4 ML VIAL SLOW IVP SCH ×2 (06:45→14:59)
[2022-04-27] MEDS: Levothyroxine Sodium 25 MCG TAB PO SCH (06:45)
[2022-04-27] MEDS ORDERED: Cyclobenzaprine 10 MG TAB PO SCH (08:30)
[2022-04-27] MEDS: Folic Acid/Vit B Comp W-C PO SCH (09:11)
[2022-04-27] MEDS: Empagliflozin 10 MG TAB PO SCH (09:11)
[2022-04-27] MEDS: Citalopram 20 MG TAB PO SCH (09:12)
[2022-04-27] MEDS: Spironolactone 25 MG TAB PO SCH (09:12)
[2022-04-27] MEDS: Amiodarone 200 MG TAB PO SCH (09:12)
[2022-04-27] MEDS: Atorvastatin Calcium 40 MG TAB PO SCH (09:13)
[2022-04-27] MEDS: Lidocaine 5% Patch TD SCH (15:02)
[2022-04-27] MEDS: Iron, Sodium Ferric Gluconate 125 MG in Sodium Chloride 0.9% 100 ML IVPB SCH (15:39)
[2022-04-27] MEDS: Cyclobenzaprine 10 MG TAB PO PRN (17:26)
[2022-04-27] MEDS: Gabapentin 300 MG CAP PO SCH (20:26)
[2022-04-28] MEDS: Morphine 4 MG/ML VIAL SLOW IVP PRN ×5 (02:26→23:10)
[2022-04-28] MEDS: Transdermal Patch Removal TOP SCH (02:34)
[2022-04-28] MEDS: Cyclobenzaprine 10 MG TAB PO PRN ×3 (04:16→21:19)
[2022-04-28 05:03] LABS: #Eosinphils 0.2 thou/uL (0.0-0.7); #Lymphocytes 0.6 thou/uL (1.20-3.40); #Monocytes 0.6 thou/uL (0.11-0.59); #Neutrophils 3.2 thou/uL (1.40-6.50); %Basophils 0.2 % (0.0-1.0); %Eosinophils 5.3 % (0.0-10.0); %Lymphocytes 12.8 % (21.0-51.0); %Monocytes 12.7 % (0.0-10.0); Hemoglobin 8.5 g/dL (14.0-18.0); Mean Corpuscular HGB CONC 30.8 g/dL (32.0-36.0); Mean Corpuscular Volume 71.6 fl (78.0-98.0); Mean Platelet Volume 6.7 fL (7.4-10.4); Platelet Count 134 10x3/uL (130-400); Red Blood Cell (RBC) Count 3.85 mill/uL (4.70-6.10); White Blood Cell (WBC) Count 4.7 10x3/uL (4.8-10.8)
[2022-04-28 05:11] LABS: Anion Gap 13 mmol/L (10-20); BUN (Urea Nitrogen) 14 mg/dL (8.4-25.7); Calc. Creatinine Clearance 64 mL/min (70-130); Calcium 8.8 mg/dL (7.8-10.44); Carbon Dioxide 30 mmol/L (23-31); Chloride 99 mmol/L (98-107); Estimated GFR 62; Glucose 96 mg/dL (80-115); Potassium 3.5 mmol/L (3.5-5.1); Sodium 138 mmol/L (136-145)
[2022-04-28] MEDS: Furosemide 40 MG/4 ML VIAL SLOW IVP SCH ×2 (06:18→13:37)
[2022-04-28] MEDS: Levothyroxine Sodium 25 MCG TAB PO SCH (06:18)
[2022-04-28] MEDS ORDERED: ALPRAZolam 0.25 MG TAB PO PRN (09:23)
[2022-04-28] MEDS: Citalopram 20 MG TAB PO SCH (10:14)
[2022-04-28] MEDS: Folic Acid/Vit B Comp W-C PO SCH (10:15)
[2022-04-28] MEDS: Gabapentin 300 MG CAP PO SCH ×3 (10:15→21:19)
[2022-04-28] MEDS: Amiodarone 200 MG TAB PO SCH (10:16)
[2022-04-28] MEDS: Empagliflozin 10 MG TAB PO SCH (10:16)
[2022-04-28] MEDS: Spironolactone 25 MG TAB PO SCH (10:17)
[2022-04-28] MEDS: Atorvastatin Calcium 40 MG TAB PO SCH (10:17)
[2022-04-28] MEDS: traMADol HCl 50 MG TAB PO PRN (13:35)
[2022-04-28] MEDS: Lidocaine 5% Patch TD SCH (13:38)
[2022-04-28] MEDS: Carvedilol 3.125 MG TAB PO SCH (18:08)
[2022-04-29] MEDS: Transdermal Patch Removal TOP SCH (04:13)
[2022-04-29] MEDS: traMADol HCl 50 MG TAB PO PRN (04:15)
[2022-04-29 04:32] LABS: #Eosinphils 0.3 thou/uL (0.0-0.7); #Lymphocytes 0.8 thou/uL (1.20-3.40); #Monocytes 0.6 thou/uL (0.11-0.59); #Neutrophils 2.4 thou/uL (1.40-6.50); %Basophils 0.4 % (0.0-1.0); %Eosinophils 7.8 % (0.0-10.0); %Lymphocytes 19.8 % (21.0-51.0); %Monocytes 14.2 % (0.0-10.0); %Neutrophils 57.8 % (42.0-75.0); Hemoglobin 10.5 g/dL (14.0-18.0); Mean Corpuscular HGB CONC 34.3 g/dL (32.0-36.0); Mean Corpuscular Hemoglobin 25.1 pg (27.0-31.0); Mean Platelet Volume 11.8 fL (7.4-10.4); Platelet Count 172 10x3/uL (130-400); RBC Distribution Width 19.3 % (11.5-14.5); White Blood Cell (WBC) Count 4.2 10x3/uL (4.8-10.8)
[2022-04-29 05:05] LABS: Anion Gap 15 mmol/L (10-20); BUN (Urea Nitrogen) 14 mg/dL (8.4-25.7); Calc. Creatinine Clearance 62 mL/min (70-130); Calcium 9.2 mg/dL (7.8-10.44); Carbon Dioxide 35 mmol/L (23-31); Chloride 96 mmol/L (98-107); Estimated GFR 60; Glucose 83 mg/dL (80-115); Potassium 3.6 mmol/L (3.5-5.1); Sodium 142 mmol/L (136-145)
[2022-04-29] MEDS: Levothyroxine Sodium 25 MCG TAB PO SCH (06:12)
[2022-04-29] MEDS: Furosemide 40 MG/4 ML VIAL SLOW IVP SCH ×2 (06:12→13:55)
[2022-04-29] MEDS: Carvedilol 3.125 MG TAB PO SCH (08:02)
[2022-04-29] MEDS: Cyclobenzaprine 10 MG TAB PO PRN (08:02)
[2022-04-29] MEDS: Folic Acid/Vit B Comp W-C PO SCH (08:02)
[2022-04-29] MEDS: Gabapentin 300 MG CAP PO SCH ×2 (08:02→13:55)
[2022-04-29] MEDS: Atorvastatin Calcium 40 MG TAB PO SCH (08:03)
[2022-04-29] MEDS: Empagliflozin 10 MG TAB PO SCH (08:03)
[2022-04-29] MEDS: Citalopram 20 MG TAB PO SCH (08:03)
[2022-04-29] MEDS: Amiodarone 200 MG TAB PO SCH (08:03)
[2022-04-29] MEDS: Spironolactone 25 MG TAB PO SCH (08:03)
[2022-04-29] MEDS ORDERED: valACYclovir 500 MG TAB PO SCH (09:00)
[2022-04-29] MEDS ORDERED: Multivit, Therapeutic 1 TAB PO SCH (09:00)
[2022-04-29 12:17] VITALS: BP 102/58; TEMP 97.3
[2022-04-29] MEDS: Lidocaine 5% Patch TD SCH (13:55)
== END 2022-04-29 14:20 | disposition home or self-care (01) | DRG 291 ==
LOC: ERS 18:01 → 2NO 20:21
PROVIDERS: ADMIT Family Medicine; ATTEND Hospitalist
DX: I13.0 Hypertensive heart and chronic kidney disease with heart failure and stage 1 through stage 4 chronic kidney disease, or unspecified chronic kidney disease (principal); I50.23 Acute on chronic systolic (congestive) heart failure; J96.01 Acute respiratory failure with hypoxia; E78.5 Hyperlipidemia, unspecified; G25.81 Restless legs syndrome; Z96.641 Presence of right artificial hip joint; F41.9 Anxiety disorder, unspecified; D63.1 Anemia in chronic kidney disease; D50.9 Iron deficiency anemia, unspecified; I48.0 Paroxysmal atrial fibrillation; N18.9 Chronic kidney disease, unspecified; I25.700 Atherosclerosis of coronary artery bypass graft(s), unspecified, with unstable angina pectoris; Z95.5 Presence of coronary angioplasty implant and graft; Z99.81 Dependence on supplemental oxygen; Z88.8 Allergy status to other drugs, medicaments and biological substances; Z90.49 Acquired absence of other specified parts of digestive tract; Z79.899 Other long term (current) drug therapy; Z79.52 Long term (current) use of systemic steroids; Z95.1 Presence of aortocoronary bypass graft; I25.2 Old myocardial infarction; Z79.82 Long term (current) use of aspirin
CPT/HCPCS: 36415; 36416; 71045; 80048; 80053; 82728; 83540; 83550; 83690; 83735; 83880; 84100; 84484; 85025; 93005; 96374; 96375; 96376; J1940; J2270; J2916; J3010; J3490

== ENCOUNTER 2022-05-02 14:34 | Emergency (ER) | payer MEDICARE, OTHER ==
[2022-05-02] MEDS ORDERED: Morphine 4 MG/ML VIAL ONE ×2 (15:43→19:30)
[2022-05-02] MEDS ORDERED: Meclizine HCl 25 MG TAB ONE (15:44)
[2022-05-02] MEDS ORDERED: Ondansetron PF 4 MG/2 ML Vial ONE (15:44)
[2022-05-02 16:45] LABS: #Eosinphils 0.2 thou/uL (0.0-0.7); #Lymphocytes 0.6 thou/uL (1.20-3.40); #Monocytes 0.4 thou/uL (0.11-0.59); #Neutrophils 2.6 thou/uL (1.40-6.50); %Basophils 0.2 % (0.0-1.0); %Eosinophils 6.1 % (0.0-10.0); %Lymphocytes 15.7 % (21.0-51.0); %Monocytes 10.8 % (0.0-10.0); %Neutrophils 67.3 % (42.0-75.0); Hemoglobin 10.8 g/dL (14.0-18.0); Mean Corpuscular Hemoglobin 22.8 pg (27.0-31.0); Mean Corpuscular Volume 73.7 fl (78.0-98.0); Mean Platelet Volume 7.7 fL (7.4-10.4); Platelet Count 161 10x3/uL (130-400); RBC Distribution Width 20.3 % (11.5-14.5); Red Blood Cell (RBC) Count 4.74 mill/uL (4.70-6.10); White Blood Cell (WBC) Count 3.9 10x3/uL (4.8-10.8)
[2022-05-02 17:07] LABS: ALT (SGPT) 24 U/L (8-55); AST (SGOT) 54 U/L (5-34); Albumin 3.5 g/dL (3.4-4.8); Alkaline Phosphatase 100 U/L (40-110); Anion Gap 15 mmol/L (10-20); BUN (Urea Nitrogen) 26 mg/dL (8.4-25.7); Bilirubin, Total 1.2 mg/dL (0.2-1.2); CK (CPK) 45 U/L (30-200); Calc. Creatinine Clearance 0 mL/min (70-130); Calcium 9.1 mg/dL (7.8-10.44); Carbon Dioxide 26 mmol/L (23-31); Chloride 98 mmol/L (98-107); Estimated GFR 55; Globulin 2.7 g/dL (2.4-3.5); Glucose 85 mg/dL (80-115); Potassium 3.8 mmol/L (3.5-5.1); Protein, Total 6.2 g/dL (5.8-8.1); Sodium 135 mmol/L (136-145)
[2022-05-02] MEDS ORDERED: Ketorolac Tromethamine 30 MG/ML VIAL ONE (17:20)
[2022-05-02] MEDS ORDERED: Lidocaine 1% PF 5 ML VIAL ONE (18:24)
== END 2022-05-02 19:56 | disposition home or self-care (01) ==
LOC: ERS 14:34
DX: S01.01XA Laceration without foreign body of scalp, initial encounter (principal); S51.011A Laceration without foreign body of right elbow, initial encounter; E11.40 Type 2 diabetes mellitus with diabetic neuropathy, unspecified; E11.22 Type 2 diabetes mellitus with diabetic chronic kidney disease; E78.5 Hyperlipidemia, unspecified; I12.9 Hypertensive chronic kidney disease with stage 1 through stage 4 chronic kidney disease, or unspecified chronic kidney disease; N18.9 Chronic kidney disease, unspecified; Z79.899 Other long term (current) drug therapy; W19.XXXA Unspecified fall, initial encounter; Y92.002 Bathroom of unspecified non-institutional (private) residence as the place of occurrence of the external cause
CPT/HCPCS: 12001; 36415; 70450; 71045; 72125; 72170; 80053; 82550; 84484; 85025; 93005; 96374; 96375; 96376; J1885; J2270; J2405

== ENCOUNTER 2022-05-08 16:54 | Inpatient (IN) | payer MEDICARE, OTHER ==
[2022-05-08] MEDS ORDERED: traMADol HCl 50 MG TAB PO PRN (23:28)
[2022-05-08] MEDS ORDERED: Senokot S 8.6-50 MG TAB PO PRN (23:44)
[2022-05-08] MEDS ORDERED: Mirtazapine 15 MG TAB PO SCH (23:45)
[2022-05-09] MEDS: Morphine 2 MG/ML VIAL SLOW IVP SCH ×2 (02:54→03:37)
[2022-05-09] MEDS ORDERED: OLANZapine 10 MG VIAL IM SCH (03:45)
[2022-05-09] MEDS: Levothyroxine Sodium 25 MCG TAB PO SCH (06:09)
[2022-05-09 06:20] LABS: #Eosinphils 0.1 thou/uL (0.0-0.7); #Lymphocytes 0.7 thou/uL (1.20-3.40); #Monocytes 0.4 thou/uL (0.11-0.59); #Neutrophils 2.9 thou/uL (1.40-6.50); %Basophils 0.2 % (0.0-1.0); %Eosinophils 1.8 % (0.0-10.0); %Lymphocytes 16.4 % (21.0-51.0); %Monocytes 9.5 % (0.0-10.0); %Neutrophils 72.1 % (42.0-75.0); Hemoglobin 10.1 g/dL (14.0-18.0); Mean Corpuscular HGB CONC 31.4 g/dL (32.0-36.0); Mean Corpuscular Hemoglobin 23.5 pg (27.0-31.0); Mean Corpuscular Volume 75.1 fl (78.0-98.0); Mean Platelet Volume 7.8 fL (7.4-10.4); Platelet Count 169 10x3/uL (130-400); RBC Distribution Width 21.3 % (11.5-14.5); White Blood Cell (WBC) Count 4.1 10x3/uL (4.8-10.8)
[2022-05-09] MEDS ORDERED: Dextrose 50% Abboject 50 ML SYRINGE SLOW IVP PRN (06:31)
[2022-05-09] MEDS ORDERED: Dextrose 5% in Water 1,000 ML IV PRN (06:31)
[2022-05-09 06:42] LABS: ALT (SGPT) 24 U/L (8-55); AST (SGOT) 37 U/L (5-34); Albumin 3.3 g/dL (3.4-4.8); Alkaline Phosphatase 93 U/L (40-110); Anion Gap 15 mmol/L (10-20); BUN (Urea Nitrogen) 14 mg/dL (8.4-25.7); Bilirubin, Total 0.9 mg/dL (0.2-1.2); Calc. Creatinine Clearance 55 mL/min (70-130); Calcium 9.3 mg/dL (7.8-10.44); Carbon Dioxide 26 mmol/L (23-31); Chloride 100 mmol/L (98-107); Estimated GFR 61; Globulin 2.8 g/dL (2.4-3.5); Glucose 62 mg/dL (80-115); Magnesium 1.5 mg/dL (1.6-2.6); Potassium 3.8 mmol/L (3.5-5.1); Protein, Total 6.1 g/dL (5.8-8.1); Sodium 137 mmol/L (136-145)
[2022-05-09] MEDS ORDERED: Senokot S 8.6-50 MG TAB PO SCH (09:00)
[2022-05-09] MEDS ORDERED: Apixaban 2.5 MG TAB PO SCH (09:00)
[2022-05-09] MEDS ORDERED: Gabapentin 300 MG CAP PO SCH (09:00)
[2022-05-09] MEDS: Clopidogrel Bisulfate 75 MG TAB PO SCH (09:30)
[2022-05-09] MEDS: Gabapentin 300 MG CAP PO SCH ×3 (09:30→22:26)
[2022-05-09] MEDS: Amiodarone 200 MG TAB PO SCH (09:31)
[2022-05-09] MEDS: Citalopram 20 MG TAB PO SCH (09:31)
[2022-05-09] MEDS: Carvedilol 3.125 MG TAB PO SCH ×2 (09:31→22:26)
[2022-05-09] MEDS: Atorvastatin Calcium 40 MG TAB PO SCH (09:32)
[2022-05-09] MEDS: valACYclovir 500 MG TAB PO SCH (09:32)
[2022-05-09] MEDS: Colchicine 0.3 MG TAB PO SCH ×2 (09:32→22:26)
[2022-05-09] MEDS: Empagliflozin 10 MG TAB PO SCH (09:33)
[2022-05-09] MEDS: QUEtiapine 25 MG TAB PO SCH ×2 (09:33→22:27)
[2022-05-09] MEDS: Dextrose 5 % And 0.9 % NaCl 1,000 ML IV SCH (16:05)
[2022-05-09] MEDS ORDERED: Meclizine HCl 25 MG TAB PO SCH (17:30)
[2022-05-09] MEDS: Apixaban 5 MG TAB PO SCH (22:26)
[2022-05-09] MEDS: Mirtazapine 15 MG TAB PO SCH (22:26)
[2022-05-09] MEDS: Meclizine HCl 25 MG TAB PO SCH (22:27)
[2022-05-10] MEDS: Apixaban 5 MG TAB PO SCH ×3 (00:17→21:23)
[2022-05-10] MEDS: Carvedilol 3.125 MG TAB PO SCH ×3 (00:18→21:23)
[2022-05-10] MEDS: Meclizine HCl 25 MG TAB PO SCH ×4 (00:18→21:26)
[2022-05-10] MEDS: Gabapentin 300 MG CAP PO SCH ×4 (00:18→21:22)
[2022-05-10] MEDS: QUEtiapine 25 MG TAB PO SCH ×3 (00:19→21:24)
[2022-05-10] MEDS: Mirtazapine 15 MG TAB PO SCH ×2 (00:19→21:23)
[2022-05-10] MEDS: Colchicine 0.3 MG TAB PO SCH ×3 (00:23→21:24)
[2022-05-10] MEDS: Levothyroxine Sodium 25 MCG TAB PO SCH (05:30)
[2022-05-10] MEDS: Citalopram 20 MG TAB PO SCH (09:37)
[2022-05-10] MEDS: Clopidogrel Bisulfate 75 MG TAB PO SCH (09:37)
[2022-05-10] MEDS: Atorvastatin Calcium 40 MG TAB PO SCH (09:38)
[2022-05-10] MEDS: valACYclovir 500 MG TAB PO SCH (09:38)
[2022-05-10] MEDS: Amiodarone 200 MG TAB PO SCH (09:38)
[2022-05-10] MEDS: Empagliflozin 10 MG TAB PO SCH (09:43)
[2022-05-10] MEDS: Dextrose 5 % And 0.9 % NaCl 1,000 ML IV SCH (14:05)
[2022-05-11] MEDS: Levothyroxine Sodium 25 MCG TAB PO SCH ×2 (05:55→05:57)
[2022-05-11] MEDS: Meclizine HCl 25 MG TAB PO SCH ×4 (05:55→20:38)
[2022-05-11] MEDS: Citalopram 20 MG TAB PO SCH (10:05)
[2022-05-11] MEDS: valACYclovir 500 MG TAB PO SCH (10:06)
[2022-05-11] MEDS: Carvedilol 3.125 MG TAB PO SCH ×2 (10:06→20:38)
[2022-05-11] MEDS: Gabapentin 300 MG CAP PO SCH ×3 (10:07→20:37)
[2022-05-11] MEDS: Atorvastatin Calcium 40 MG TAB PO SCH (10:07)
[2022-05-11] MEDS: Apixaban 5 MG TAB PO SCH ×2 (10:07→20:38)
[2022-05-11] MEDS: Amiodarone 200 MG TAB PO SCH (10:07)
[2022-05-11] MEDS: QUEtiapine 25 MG TAB PO SCH ×2 (10:07→20:38)
[2022-05-11] MEDS: Empagliflozin 10 MG TAB PO SCH (10:07)
[2022-05-11] MEDS: Clopidogrel Bisulfate 75 MG TAB PO SCH (10:08)
[2022-05-11] MEDS: Colchicine 0.3 MG TAB PO SCH ×2 (10:08→20:49)
[2022-05-11] MEDS ORDERED: Magnesium 2 GM/50 ML(in water) 2 GM in Premix Bag 1 BAG IVPB SCH (10:15)
[2022-05-11] MEDS: Dextrose 5 % And 0.9 % NaCl 1,000 ML IV SCH (12:59)
[2022-05-11] MEDS: Mirtazapine 15 MG TAB PO SCH (20:38)
[2022-05-12 05:47] LABS: #Eosinphils 0.3 thou/uL (0.0-0.7); #Lymphocytes 0.7 thou/uL (1.20-3.40); #Monocytes 0.3 thou/uL (0.11-0.59); #Neutrophils 2.8 thou/uL (1.40-6.50); %Basophils 0.7 % (0.0-1.0); %Eosinophils 7.8 % (0.0-10.0); %Lymphocytes 16.1 % (21.0-51.0); %Neutrophils 67.4 % (42.0-75.0); Hemoglobin 11.4 g/dL (14.0-18.0); Mean Corpuscular HGB CONC 31.4 g/dL (32.0-36.0); Mean Corpuscular Hemoglobin 23.6 pg (27.0-31.0); Mean Corpuscular Volume 75.3 fl (78.0-98.0); Mean Platelet Volume 7.7 fL (7.4-10.4); Platelet Count 160 10x3/uL (130-400); RBC Distribution Width 21.5 % (11.5-14.5); Red Blood Cell (RBC) Count 4.82 mill/uL (4.70-6.10); White Blood Cell (WBC) Count 4.1 10x3/uL (4.8-10.8)
[2022-05-12 05:58] LABS: Anion Gap 10 mmol/L (10-20); BUN (Urea Nitrogen) 8 mg/dL (8.4-25.7); Calc. Creatinine Clearance 62 mL/min (70-130); Carbon Dioxide 26 mmol/L (23-31); Chloride 112 mmol/L (98-107); Estimated GFR 78; Potassium 3.5 mmol/L (3.5-5.1); Sodium 144 mmol/L (136-145)
[2022-05-12 05:59] LABS: Calcium 9.1 mg/dL (7.8-10.44); Glucose 87 mg/dL (80-115); Magnesium 1.8 mg/dL (1.6-2.6)
[2022-05-12] MEDS: Meclizine HCl 25 MG TAB PO SCH ×2 (07:42→12:30)
[2022-05-12] MEDS: Levothyroxine Sodium 25 MCG TAB PO SCH (07:42)
[2022-05-12] MEDS: Apixaban 5 MG TAB PO SCH ×2 (08:26→20:10)
[2022-05-12] MEDS: Amiodarone 200 MG TAB PO SCH (08:26)
[2022-05-12] MEDS: Atorvastatin Calcium 40 MG TAB PO SCH (08:27)
[2022-05-12] MEDS: Citalopram 20 MG TAB PO SCH (08:28)
[2022-05-12] MEDS: Carvedilol 3.125 MG TAB PO SCH ×2 (08:28→20:10)
[2022-05-12] MEDS: Colchicine 0.3 MG TAB PO SCH ×2 (08:29→20:10)
[2022-05-12] MEDS: Empagliflozin 10 MG TAB PO SCH (08:30)
[2022-05-12] MEDS: Gabapentin 300 MG CAP PO SCH (08:30)
[2022-05-12] MEDS: valACYclovir 500 MG TAB PO SCH (08:31)
[2022-05-12] MEDS: QUEtiapine 25 MG TAB PO SCH (08:31)
[2022-05-12] MEDS: Clopidogrel Bisulfate 75 MG TAB PO SCH (08:34)
[2022-05-12] MEDS: Dextrose 5 % And 0.9 % NaCl 1,000 ML IV SCH (12:37)
[2022-05-12] MEDS ORDERED: Multivitamins, Adult 10 ML, Folic Acid 1 MG, Thiamine HCl 100 MG in Dextrose 5 %-0.45 %... IV SCH (15:00)
[2022-05-12] MEDS ORDERED: Fentanyl 100 MCG/2 ML VIAL ONE (17:08)
[2022-05-13] MEDS: Levothyroxine Sodium 25 MCG TAB PO SCH (05:47)
[2022-05-13 06:27] LABS: ALT (SGPT) 27 U/L (8-55); AST (SGOT) 41 U/L (5-34); Albumin 3.2 g/dL (3.4-4.8); Alkaline Phosphatase 75 U/L (40-110); Anion Gap 12 mmol/L (10-20); BUN (Urea Nitrogen) 8 mg/dL (8.4-25.7); Bilirubin, Total 0.8 mg/dL (0.2-1.2); Calc. Creatinine Clearance 66 mL/min (70-130); Calcium 8.8 mg/dL (7.8-10.44); Carbon Dioxide 21 mmol/L (23-31); Chloride 111 mmol/L (98-107); Estimated GFR 84; Globulin 2.6 g/dL (2.4-3.5); Glucose 112 mg/dL (80-115); Magnesium 1.6 mg/dL (1.6-2.6); Potassium 3.4 mmol/L (3.5-5.1); Protein, Total 5.8 g/dL (5.8-8.1); Sodium 141 mmol/L (136-145)
[2022-05-13 08:26] LABS: #Eosinphils 0.3 thou/uL (0.0-0.7); #Lymphocytes 0.8 thou/uL (1.20-3.40); #Monocytes 0.3 thou/uL (0.11-0.59); #Neutrophils 2.6 thou/uL (1.40-6.50); %Basophils 0.3 % (0.0-1.0); %Eosinophils 8.3 % (0.0-10.0); %Lymphocytes 20.5 % (21.0-51.0); %Monocytes 7.1 % (0.0-10.0); %Neutrophils 63.8 % (42.0-75.0); Hypochromia SLIGHT = 6-15 cells (100X) (0-5/hpf); MDiff Complete? YES; Mean Corpuscular HGB CONC 30.8 g/dL (32.0-36.0); Mean Corpuscular Hemoglobin 23.3 pg (27.0-31.0); Mean Corpuscular Volume 75.6 fl (78.0-98.0); Mean Platelet Volume 10.1 fL (7.4-10.4); Microcytosis SLIGHT = 6-15 cells (100X) (0-5/hpf); Platelet Count 146 10x3/uL (130-400); Platelet Morphology Comment Appears Adequate; Polychromasia SLIGHT = 2-3 cells (100X) (0-2/hpf); RBC Distribution Width 21.5 % (11.5-14.5); Red Blood Cell (RBC) Count 4.73 mill/uL (4.70-6.10); White Blood Cell (WBC) Count 4.1 10x3/uL (4.8-10.8)
[2022-05-13] MEDS: valACYclovir 500 MG TAB PO SCH (09:59)
[2022-05-13] MEDS: Apixaban 5 MG TAB PO SCH (10:00)
[2022-05-13] MEDS: Clopidogrel Bisulfate 75 MG TAB PO SCH (10:00)
[2022-05-13] MEDS: Empagliflozin 10 MG TAB PO SCH (10:00)
[2022-05-13] MEDS: Atorvastatin Calcium 40 MG TAB PO SCH (10:00)
[2022-05-13] MEDS: Carvedilol 3.125 MG TAB PO SCH (10:01)
[2022-05-13] MEDS: Amiodarone 200 MG TAB PO SCH (10:01)
[2022-05-13] MEDS: Colchicine 0.3 MG TAB PO SCH (10:02)
[2022-05-13 14:27] VITALS: BMI 19.5
[2022-05-13 16:22] VITALS: BP 114/66; TEMP 98.1
== END 2022-05-13 18:34 | disposition home or self-care (01) | DRG 91 ==
LOC: NEURO 16:54
PROVIDERS: ADMIT Family Medicine; ATTEND Family Medicine
DX: G92.8 Other toxic encephalopathy (principal); E43 Unspecified severe protein-calorie malnutrition; I50.22 Chronic systolic (congestive) heart failure; Z68.1 Body mass index [BMI] 19.9 or less, adult; R42 Dizziness and giddiness; G47.00 Insomnia, unspecified; I25.10 Atherosclerotic heart disease of native coronary artery without angina pectoris; G89.29 Other chronic pain; T43.95XA Adverse effect of unspecified psychotropic drug, initial encounter; M54.9 Dorsalgia, unspecified; I11.0 Hypertensive heart disease with heart failure; I48.0 Paroxysmal atrial fibrillation; E78.2 Mixed hyperlipidemia; E03.9 Hypothyroidism, unspecified; F03.90 Unspecified dementia, unspecified severity, without behavioral disturbance, psychotic disturbance, mood disturbance, and anxiety; Z98.890 Other specified postprocedural states; Z91.018 Allergy to other foods; Z91.010 Allergy to peanuts; Z91.048 Other nonmedicinal substance allergy status; Z88.8 Allergy status to other drugs, medicaments and biological substances; Z79.899 Other long term (current) drug therapy; Z95.1 Presence of aortocoronary bypass graft; Z79.890 Hormone replacement therapy; Z82.49 Family history of ischemic heart disease and other diseases of the circulatory system; Z20.822 Contact with and (suspected) exposure to COVID-19
CPT/HCPCS: 36415; 36416; 70450; 80048; 80053; 82607; 83735; 84100; 84425; 85025; 95712; 95819; 95957; 97139; J2272; J3010; J3411; J3475; J7042; J7999; U0003; U0005

== ENCOUNTER 2022-06-06 11:39 | Observation (INO) | payer MEDICARE, OTHER ==
[2022-06-06 12:16] VITALS: BMI 23.8
[2022-06-06] MEDS ORDERED: Dextrose 50% Abboject 50 ML SYRINGE SLOW IVP PRN (12:39)
[2022-06-06] MEDS ORDERED: Dextrose 5% in Water 1,000 ML IV PRN (12:39)
[2022-06-06] MEDS ORDERED: Senokot S 8.6-50 MG TAB PO PRN (12:49)
[2022-06-06] MEDS ORDERED: Bisacodyl 5 MG TAB PO PRN (12:49)
[2022-06-06] MEDS ORDERED: HumaLOG 300 UNITS/3 ML VIAL SC PRN ×2 (12:49)
[2022-06-06] MEDS ORDERED: Bisacodyl 10 MG SUPP PR PRN (12:49)
[2022-06-06] MEDS ORDERED: Furosemide 40 MG/4 ML VIAL SLOW IVP SCH ×2 (13:15→19:30)
[2022-06-06] MEDS ORDERED: Morphine 2 MG/ML VIAL SLOW IVP SCH (14:00)
[2022-06-06] MEDS: Gabapentin 300 MG CAP PO SCH ×2 (14:58→15:01)
[2022-06-06] MEDS ORDERED: Heparin 5,000 UNITS/ML VIAL SC SCH (15:00)
[2022-06-06] MEDS: Acetaminophen 500 MG TAB PO SCH ×2 (16:36→20:23)
[2022-06-06] MEDS ORDERED: Gabapentin 300 MG CAP PO SCH (18:00)
[2022-06-06] MEDS: Apixaban 2.5 MG TAB PO SCH (20:22)
[2022-06-06] MEDS: Carvedilol 3.125 MG TAB PO SCH (20:22)
[2022-06-06] MEDS: Famotidine 20 MG TAB PO SCH (20:23)
[2022-06-06] MEDS: Colchicine 0.3 MG TAB PO SCH (20:23)
[2022-06-07 04:56] LABS: Anion Gap 14 mmol/L (10-20); BUN (Urea Nitrogen) 34 mg/dL (8.4-25.7); Calc. Creatinine Clearance 60 mL/min (70-130); Calcium 9.2 mg/dL (7.8-10.44); Carbon Dioxide 24 mmol/L (23-31); Chloride 107 mmol/L (98-107); Estimated GFR 60; Glucose 125 mg/dL (80-115); Potassium 3.9 mmol/L (3.5-5.1); Sodium 141 mmol/L (136-145)
[2022-06-07 05:22] LABS: #Eosinphils 0.4 thou/uL (0.0-0.7); #Lymphocytes 0.7 thou/uL (1.20-3.40); #Monocytes 0.5 thou/uL (0.11-0.59); #Neutrophils 2.9 thou/uL (1.40-6.50); %Basophils 0.4 % (0.0-1.0); %Eosinophils 8.4 % (0.0-10.0); %Lymphocytes 14.7 % (21.0-51.0); %Monocytes 11.9 % (0.0-10.0); %Neutrophils 64.6 % (42.0-75.0); Anisocytosis SLIGHT = 6-15 cells (100X) (0-5/hpf); Hemoglobin 9.3 g/dL (14.0-18.0); Hypochromia SLIGHT = 6-15 cells (100X) (0-5/hpf); MDiff Complete? YES; Mean Corpuscular Hemoglobin 25.2 pg (27.0-31.0); Mean Corpuscular Volume 78.7 fl (78.0-98.0); Mean Platelet Volume 9.8 fL (7.4-10.4); Microcytosis SLIGHT = 6-15 cells (100X) (0-5/hpf); Platelet Count 95 10x3/uL (130-400); Platelet Morphology Comment Appears Decreased; White Blood Cell (WBC) Count 4.5 10x3/uL (4.8-10.8)
[2022-06-07] MEDS ORDERED: Levothyroxine Sodium 25 MCG TAB PO SCH (06:00)
[2022-06-07] MEDS ORDERED: Spironolactone 25 MG TAB PO SCH (08:00)
[2022-06-07] MEDS ORDERED: Morphine 2 MG/ML VIAL SLOW IVP SCH (08:30)
[2022-06-07] MEDS ORDERED: Furosemide 40 MG/4 ML VIAL SLOW IVP SCH (08:30)
[2022-06-07] MEDS ORDERED: Gabapentin 300 MG CAP PO SCH (09:00)
[2022-06-07] MEDS ORDERED: Amiodarone 200 MG TAB PO SCH (09:00)
[2022-06-07] MEDS ORDERED: Empagliflozin 10 MG TAB PO SCH (09:00)
[2022-06-07] MEDS ORDERED: Clopidogrel Bisulfate 75 MG TAB PO SCH (09:00)
[2022-06-07] MEDS: Apixaban 2.5 MG TAB PO SCH (09:28)
[2022-06-07] MEDS: Carvedilol 3.125 MG TAB PO SCH (09:28)
[2022-06-07] MEDS: Colchicine 0.3 MG TAB PO SCH (09:28)
[2022-06-07] MEDS: Acetaminophen 500 MG TAB PO SCH (09:33)
[2022-06-07] MEDS: Famotidine 20 MG TAB PO SCH (09:34)
[2022-06-07 13:01] VITALS: BP 98/53; TEMP 98
== END 2022-06-07 14:34 | disposition home or self-care (01) ==
LOC: 2SW 11:42
PROVIDERS: ADMIT Hospitalist; ATTEND Hospitalist
DX: N17.9 Acute kidney failure, unspecified (principal); G89.29 Other chronic pain; M54.9 Dorsalgia, unspecified; E11.42 Type 2 diabetes mellitus with diabetic polyneuropathy; I25.10 Atherosclerotic heart disease of native coronary artery without angina pectoris; I11.0 Hypertensive heart disease with heart failure; I50.9 Heart failure, unspecified; I48.91 Unspecified atrial fibrillation; E03.9 Hypothyroidism, unspecified; Z79.01 Long term (current) use of anticoagulants; Z79.02 Long term (current) use of antithrombotics/antiplatelets; Z79.84 Long term (current) use of oral hypoglycemic drugs; Z79.890 Hormone replacement therapy; Z79.899 Other long term (current) drug therapy; Z88.8 Allergy status to other drugs, medicaments and biological substances; Z91.010 Allergy to peanuts; Z91.018 Allergy to other foods; Z91.048 Other nonmedicinal substance allergy status; Z95.1 Presence of aortocoronary bypass graft; Z20.822 Contact with and (suspected) exposure to COVID-19
CPT/HCPCS: 80048; 82962 ×2; 85025; 93970; 96374; 96375; 96376 ×2; 97116; G0378 ×2; U0003; U0005; 36415; 36416; J1815; J1940; J2272

== ENCOUNTER 2022-06-26 00:11 | Inpatient (IN) | payer MEDICARE, OTHER ==
[2022-06-26] MEDS ORDERED: Acetaminophen 325 MG TAB PO PRN (03:24)
[2022-06-26] MEDS ORDERED: Ondansetron PF 4 MG/2 ML Vial IVP PRN (03:24)
[2022-06-26] MEDS ORDERED: HYDROcodone/Acetaminophen 7.5/325 mg Tablet PO SCH (03:30)
[2022-06-26 03:40] VITALS: BMI 24.0
[2022-06-26 04:16] LABS: #Eosinphils 0.2 thou/uL (0.0-0.7); #Lymphocytes 0.8 thou/uL (1.20-3.40); #Monocytes 0.5 thou/uL (0.11-0.59); #Neutrophils 2.7 thou/uL (1.40-6.50); %Basophils 0.9 % (0.0-1.0); %Eosinophils 3.8 % (0.0-10.0); %Lymphocytes 18.5 % (21.0-51.0); %Monocytes 11.4 % (0.0-10.0); %Neutrophils 65.3 % (42.0-75.0); Mean Platelet Volume 9.9 fL (7.4-10.4); Platelet Count 94 10x3/uL (130-400); RBC Distribution Width 20.8 % (11.5-14.5); White Blood Cell (WBC) Count 4.1 10x3/uL (4.8-10.8)
[2022-06-26 04:25] LABS: Anion Gap 17 mmol/L (10-20); BUN (Urea Nitrogen) 58 mg/dL (8.4-25.7); Calc. Creatinine Clearance 44 mL/min (70-130); Calcium 8.7 mg/dL (7.8-10.44); Carbon Dioxide 18 mmol/L (23-31); Chloride 107 mmol/L (98-107); Estimated GFR 41; Glucose 241 mg/dL (80-115); Potassium 4.5 mmol/L (3.5-5.1); Sodium 137 mmol/L (136-145)
[2022-06-26 04:27] LABS: Anion Gap 14 mmol/L (10-20); BUN (Urea Nitrogen) 60 mg/dL (8.4-25.7); Calc. Creatinine Clearance 43 mL/min (70-130); Calcium 8.8 mg/dL (7.8-10.44); Carbon Dioxide 23 mmol/L (23-31); Chloride 106 mmol/L (98-107); Estimated GFR 39; Glucose 236 mg/dL (80-115); Potassium 4.5 mmol/L (3.5-5.1); Sodium 138 mmol/L (136-145)
[2022-06-26 04:33] LABS: Troponin I 0.014 ng/mL (< 0.028)
[2022-06-26] MEDS ORDERED: HumaLOG 300 UNITS/3 ML VIAL SC PRN ×2 (04:34)
[2022-06-26] MEDS ORDERED: Dextrose 50% Abboject 50 ML SYRINGE SLOW IVP PRN (04:34)
[2022-06-26] MEDS ORDERED: Dextrose 5% in Water 1,000 ML IV PRN (04:34)
[2022-06-26 04:36] LABS: ALT (SGPT) 53 U/L (8-55); AST (SGOT) 40 U/L (5-34); Albumin 3.7 g/dL (3.4-4.8); Alkaline Phosphatase 100 U/L (40-110); Bilirubin, Direct 0.3 mg/dL (0.1-0.3); Bilirubin, Total 0.6 mg/dL (0.2-1.2); Protein, Total 6.2 g/dL (5.8-8.1)
[2022-06-26] MEDS ORDERED: Morphine 4 MG/ML VIAL SLOW IVP SCH (05:15)
[2022-06-26] MEDS: Furosemide 20 MG/2 ML VIAL SLOW IVP SCH ×2 (05:23→15:12)
[2022-06-26 07:33] LABS: Troponin I 0.023 ng/mL (< 0.028)
[2022-06-26] MEDS ORDERED: FLU VACC QS2022-23(65YR UP)/PF 240 MCG/0.7 ML SYRINGE IM ONE (09:00)
[2022-06-26] MEDS ORDERED: Amiodarone 200 MG TAB PO SCH (09:00)
[2022-06-26] MEDS ORDERED: Apixaban 2.5 MG TAB PO SCH (09:00)
[2022-06-26] MEDS: Gabapentin 300 MG CAP PO SCH ×2 (10:12→20:40)
[2022-06-26] MEDS: Clopidogrel Bisulfate 75 MG TAB PO SCH (10:13)
[2022-06-26] MEDS: Morphine 4 MG/ML VIAL SLOW IVP PRN ×4 (10:14→23:52)
[2022-06-26] MEDS: Empagliflozin 10 MG TAB PO SCH (10:34)
[2022-06-26] MEDS: Carvedilol 3.125 MG TAB PO SCH ×3 (10:34→17:46)
[2022-06-26] MEDS ORDERED: Iron, Sodium Ferric Gluconate 250 MG in Sodium Chloride 0.9% 250 ML 250 ML IVPB SCH (14:15)
[2022-06-26] MEDS ORDERED: Nitroglycerin 0.4 MG TAB (25 Tab Bottle) SL SCH (19:45)
[2022-06-27 05:03] LABS: #Eosinphils 0.2 thou/uL (0.0-0.7); #Lymphocytes 0.6 thou/uL (1.20-3.40); #Monocytes 0.5 thou/uL (0.11-0.59); #Neutrophils 3.6 thou/uL (1.40-6.50); %Basophils 0.6 % (0.0-1.0); %Eosinophils 4.3 % (0.0-10.0); %Lymphocytes 12.6 % (21.0-51.0); %Monocytes 10.4 % (0.0-10.0); Hemoglobin 9.2 g/dL (14.0-18.0); Mean Corpuscular HGB CONC 31.6 g/dL (32.0-36.0); Mean Corpuscular Volume 79.1 fl (78.0-98.0); Mean Platelet Volume 8.9 fL (7.4-10.4); Platelet Count 99 10x3/uL (130-400); RBC Distribution Width 20.8 % (11.5-14.5); Red Blood Cell (RBC) Count 3.69 mill/uL (4.70-6.10); White Blood Cell (WBC) Count 4.9 10x3/uL (4.8-10.8)
[2022-06-27] MEDS: Levothyroxine Sodium 25 MCG TAB PO SCH (05:08)
[2022-06-27] MEDS: Furosemide 20 MG/2 ML VIAL SLOW IVP SCH ×2 (05:08→14:32)
[2022-06-27] MEDS: Morphine 4 MG/ML VIAL SLOW IVP PRN ×5 (05:09→22:56)
[2022-06-27 05:23] LABS: Anion Gap 13 mmol/L (10-20); BUN (Urea Nitrogen) 48 mg/dL (8.4-25.7); Calc. Creatinine Clearance 47 mL/min (70-130); Carbon Dioxide 24 mmol/L (23-31); Chloride 105 mmol/L (98-107); Estimated GFR 45; Glucose 162 mg/dL (80-115); Potassium 4.2 mmol/L (3.5-5.1); Sodium 138 mmol/L (136-145)
[2022-06-27] MEDS: Amiodarone 200 MG TAB PO SCH (09:03)
[2022-06-27] MEDS: Clopidogrel Bisulfate 75 MG TAB PO SCH (09:03)
[2022-06-27] MEDS: Gabapentin 300 MG CAP PO SCH ×2 (09:04→20:18)
[2022-06-27] MEDS: Empagliflozin 10 MG TAB PO SCH (09:05)
[2022-06-27] MEDS: Carvedilol 3.125 MG TAB PO SCH ×2 (10:48→17:44)
[2022-06-27] MEDS ORDERED: Communication Order-Pharmacy FS SCH (13:30)
[2022-06-28] MEDS: Morphine 4 MG/ML VIAL SLOW IVP PRN ×2 (03:00→08:27)
[2022-06-28 05:08] LABS: #Eosinphils 0.3 thou/uL (0.0-0.7); #Lymphocytes 0.7 thou/uL (1.20-3.40); #Monocytes 0.6 thou/uL (0.11-0.59); #Neutrophils 3.1 thou/uL (1.40-6.50); %Basophils 0.2 % (0.0-1.0); %Eosinophils 6.1 % (0.0-10.0); %Lymphocytes 15.5 % (21.0-51.0); %Monocytes 11.7 % (0.0-10.0); %Neutrophils 66.5 % (42.0-75.0); Hemoglobin 9.7 g/dL (14.0-18.0); Mean Corpuscular HGB CONC 31.6 g/dL (32.0-36.0); Mean Corpuscular Hemoglobin 25.3 pg (27.0-31.0); Mean Corpuscular Volume 80.2 fl (78.0-98.0); Mean Platelet Volume 8.6 fL (7.4-10.4); Platelet Count 100 10x3/uL (130-400); RBC Distribution Width 21.1 % (11.5-14.5); Red Blood Cell (RBC) Count 3.81 mill/uL (4.70-6.10); White Blood Cell (WBC) Count 4.7 10x3/uL (4.8-10.8)
[2022-06-28 05:33] LABS: Anion Gap 16 mmol/L (10-20); BUN (Urea Nitrogen) 42 mg/dL (8.4-25.7); Calc. Creatinine Clearance 50 mL/min (70-130); Calcium 8.9 mg/dL (7.8-10.44); Carbon Dioxide 22 mmol/L (23-31); Chloride 103 mmol/L (98-107); Estimated GFR 48; Glucose 175 mg/dL (80-115); Sodium 137 mmol/L (136-145)
[2022-06-28] MEDS: Amiodarone 200 MG TAB PO SCH (05:55)
[2022-06-28] MEDS: Furosemide 20 MG/2 ML VIAL SLOW IVP SCH (05:55)
[2022-06-28] MEDS: Carvedilol 3.125 MG TAB PO SCH (05:55)
[2022-06-28] MEDS: Levothyroxine Sodium 25 MCG TAB PO SCH (05:55)
[2022-06-28] MEDS: Gabapentin 300 MG CAP PO SCH (05:56)
[2022-06-28] MEDS ORDERED: Sodium Chloride 0.9% 1,000 ML IV SCH ×2 (06:00→07:48)
[2022-06-28 06:21] VITALS: BP 116/55
[2022-06-28] MEDS ORDERED: Lidocaine 1% (PF) 30 ML VIAL ONE (06:23)
[2022-06-28] MEDS ORDERED: Heparin 10,000 UNITS/ 10 ML VIAL ONE (06:23)
[2022-06-28] MEDS ORDERED: Midazolam HCl 2 mg/2 ml Vial ONE (07:09)
[2022-06-28] MEDS ORDERED: FENTANYL 50 MCG/ML 1 ML VIAL ONE (07:09)
[2022-06-28] MEDS ORDERED: Nitroglycerin 0.4 MG TAB (25 Tab Bottle) SL PRN (07:48)
[2022-06-28] MEDS ORDERED: Acetaminophen/Codeine 30-300mg Tablet PO PRN ×2 (07:48)
[2022-06-28] MEDS ORDERED: Sodium Chloride 0.9% 200 ML IV PRN (07:48)
[2022-06-28] MEDS: Empagliflozin 10 MG TAB PO SCH (08:31)
[2022-06-28] MEDS: Clopidogrel Bisulfate 75 MG TAB PO SCH (08:40)
[2022-06-28 09:00] VITALS: TEMP 97.7
== END 2022-06-28 14:03 | disposition home or self-care (01) | DRG 286 ==
LOC: 2NO 00:11 → OBSVTOIN 04:28
PROVIDERS: ADMIT Internal Medicine; ATTEND Internal Medicine
PROC: 4A023N7 Measurement of Cardiac Sampling and Pressure, Left Heart, Percutaneous Approach (ICD-10-PCS; principal; 2022-06-28)
PROC: B2111ZZ Fluoroscopy of Multiple Coronary Arteries using Low Osmolar Contrast (ICD-10-PCS; 2022-06-28)
PROC: B2121ZZ Fluoroscopy of Single Coronary Artery Bypass Graft using Low Osmolar Contrast (ICD-10-PCS; 2022-06-28)
PROC: B2151ZZ Fluoroscopy of Left Heart using Low Osmolar Contrast (ICD-10-PCS; 2022-06-28)
DX: I13.0 Hypertensive heart and chronic kidney disease with heart failure and stage 1 through stage 4 chronic kidney disease, or unspecified chronic kidney disease (principal); I50.23 Acute on chronic systolic (congestive) heart failure; J96.01 Acute respiratory failure with hypoxia; N17.9 Acute kidney failure, unspecified; E78.5 Hyperlipidemia, unspecified; E11.40 Type 2 diabetes mellitus with diabetic neuropathy, unspecified; D69.6 Thrombocytopenia, unspecified; E03.9 Hypothyroidism, unspecified; G25.81 Restless legs syndrome; Z96.641 Presence of right artificial hip joint; I25.10 Atherosclerotic heart disease of native coronary artery without angina pectoris; D63.1 Anemia in chronic kidney disease; I48.0 Paroxysmal atrial fibrillation; N18.30 Chronic kidney disease, stage 3 unspecified; Z98.890 Other specified postprocedural states; Z91.018 Allergy to other foods; Z91.048 Other nonmedicinal substance allergy status; Z91.010 Allergy to peanuts; Z88.8 Allergy status to other drugs, medicaments and biological substances; Z79.899 Other long term (current) drug therapy; Z79.890 Hormone replacement therapy; Z95.5 Presence of coronary angioplasty implant and graft; Z95.1 Presence of aortocoronary bypass graft; Z90.49 Acquired absence of other specified parts of digestive tract; Z98.1 Arthrodesis status; Z82.49 Family history of ischemic heart disease and other diseases of the circulatory system; Z87.891 Personal history of nicotine dependence; I25.2 Old myocardial infarction; Z20.822 Contact with and (suspected) exposure to COVID-19
CPT/HCPCS: 36415; 36416; 80048; 80076; 82728; 84484; 85025; 93005; 93010; 93459; 99152; 99153; 99156; 99157; C1769; C1894; J1644; J1940; J2001; J2250; J2270; J2916; J3010; J7050; U0003; U0005

== ENCOUNTER 2022-07-24 23:53 | Inpatient (IN) | payer MEDICARE, OTHER ==
[2022-07-25] MEDS ORDERED: Furosemide 40 MG/4 ML VIAL ONE (00:13)
[2022-07-25] MEDS ORDERED: Nitroglycerin 2% Ointment 1 INCH/1 GM Packet ONE (00:13)
[2022-07-25] MEDS ORDERED: fentaNYL 50 mcg/mL 1 mL Vial ONE ×3 (00:13→11:47)
[2022-07-25 00:40] LABS: #Eosinphils 0.3 thou/uL (0.0-0.7); #Lymphocytes 0.7 thou/uL (1.20-3.40); #Monocytes 0.5 thou/uL (0.11-0.59); #Neutrophils 3.6 thou/uL (1.40-6.50); %Basophils 0.4 % (0.0-1.0); %Eosinophils 6.5 % (0.0-10.0); %Lymphocytes 13.7 % (21.0-51.0); %Monocytes 10.4 % (0.0-10.0); %Neutrophils 68.9 % (42.0-75.0); Hemoglobin 10.8 g/dL (14.0-18.0); Mean Corpuscular HGB CONC 31.7 g/dL (32.0-36.0); Mean Corpuscular Hemoglobin 26.1 pg (27.0-31.0); Mean Corpuscular Volume 82.4 fl (78.0-98.0); Mean Platelet Volume 8.7 fL (7.4-10.4); Platelet Count 89 10x3/uL (130-400); RBC Distribution Width 19.2 % (11.5-14.5); Red Blood Cell (RBC) Count 4.12 mill/uL (4.70-6.10); White Blood Cell (WBC) Count 5.2 10x3/uL (4.8-10.8)
[2022-07-25 01:04] LABS: ALT (SGPT) 32 U/L (8-55); AST (SGOT) 32 U/L (5-34); Albumin 3.9 g/dL (3.4-4.8); Alkaline Phosphatase 118 U/L (40-110); Anion Gap 13 mmol/L (10-20); BUN (Urea Nitrogen) 30 mg/dL (8.4-25.7); Bilirubin, Total 0.9 mg/dL (0.2-1.2); CK (CPK) 61 U/L (30-200); Calc. Creatinine Clearance 0 mL/min (70-130); Calcium 9.1 mg/dL (7.8-10.44); Carbon Dioxide 22 mmol/L (23-31); Chloride 109 mmol/L (98-107); Estimated GFR 47; Globulin 2.8 g/dL (2.4-3.5); Glucose 209 mg/dL (80-115); Lipase 35 U/L (8-78); Potassium 4.6 mmol/L (3.5-5.1); Protein, Total 6.7 g/dL (5.8-8.1); Sodium 139 mmol/L (136-145)
[2022-07-25 02:18] LABS: Bilirubin Negative (Negative); Blood, Urine Negative (Negative); Clarity Clear (Clear); Glucose, Urine (Dipstick) Greater than 1000 mg/dL (Negative); Ketone, Urine Negative (Negative); Leukocyte Negative Leu/uL (Negative); Nitrite Negative (Negative); Protein, Urine (Dipstick) Negative (Neg-Trace); Specific Gravity, Urine 1.021 (1.002-1.036); Urobilinogen Normal mg/dL (Less than 2); pH, Urine 6.5 (5.0-9.0)
[2022-07-25] MEDS ORDERED: HYDROcodone/Acetaminophen 5/325 mg Tablet PO PRN (03:00)
[2022-07-25] MEDS ORDERED: Ondansetron ODT 4 MG TAB PO PRN (03:00)
[2022-07-25] MEDS ORDERED: Ondansetron PF 4 MG/2 ML Vial IVP PRN (03:00)
[2022-07-25] MEDS ORDERED: Acetaminophen 325 MG TAB PO PRN (03:00)
[2022-07-25] MEDS ORDERED: HYDROcodone/Acetaminophen 5/325 mg Tablet ONE (03:38)
[2022-07-25 04:49] LABS: Hemoglobin A1c 6.6 % (4.0-6.0)
[2022-07-25 04:51] LABS: Hemoglobin 11.5 g/dL (14.0-18.0); Mean Corpuscular HGB CONC 31.7 g/dL (32.0-36.0); Mean Corpuscular Hemoglobin 25.9 pg (27.0-31.0); Mean Corpuscular Volume 81.8 fl (78.0-98.0); RBC Distribution Width 19.3 % (11.5-14.5); Red Blood Cell (RBC) Count 4.43 mill/uL (4.70-6.10); White Blood Cell (WBC) Count 5.6 10x3/uL (4.8-10.8)
[2022-07-25 05:11] LABS: Anion Gap 16 mmol/L (10-20); BUN (Urea Nitrogen) 29 mg/dL (8.4-25.7); Calc. Creatinine Clearance 0 mL/min (70-130); Calcium 9.6 mg/dL (7.8-10.44); Carbon Dioxide 21 mmol/L (23-31); Chloride 105 mmol/L (98-107); Estimated GFR 48; Glucose 202 mg/dL (80-115); Magnesium 2.2 mg/dL (1.6-2.6); Potassium 4.5 mmol/L (3.5-5.1); Sodium 137 mmol/L (136-145)
[2022-07-25 05:28] LABS: #Eosinphils 0.3 thou/uL (0.0-0.7); #Monocytes 0.5 thou/uL (0.11-0.59); #Neutrophils 3.8 thou/uL (1.40-6.50); %Basophils 0.2 % (0.0-1.0); %Eosinophils 6.1 % (0.0-10.0); %Lymphocytes 16.8 % (21.0-51.0); %Neutrophils 67.8 % (42.0-75.0); Anisocytosis SLIGHT = 6-15 cells (100X) (0-5/hpf); Hypochromia SLIGHT = 6-15 cells (100X) (0-5/hpf); Large Platelets SLIGHT; MDiff Complete? YES; Platelet Count 93 10x3/uL (130-400); Platelet Morphology Comment Appears Decreased; Polychromasia MODERATE = 3-4 cells (100X) (0-2/hpf); Stomatocytes SLIGHT = 2-5 cells (100X) (0-1/hpf)
[2022-07-25] MEDS: Furosemide 40 MG/4 ML VIAL SLOW IVP SCH ×2 (06:27→14:16)
[2022-07-25] MEDS ORDERED: traMADol HCl 50 MG TAB ONE (06:28)
[2022-07-25] MEDS ORDERED: traMADol HCl 50 MG TAB PO SCH (06:30)
[2022-07-25] MEDS ORDERED: ALPRAZolam 0.25 MG TAB PO PRN (07:48)
[2022-07-25] MEDS ORDERED: Amiodarone 200 MG TAB PO SCH (09:00)
[2022-07-25] MEDS: Apixaban 2.5 MG TAB PO SCH ×2 (09:51→21:15)
[2022-07-25] MEDS: Atorvastatin Calcium 40 MG TAB PO SCH (09:51)
[2022-07-25] MEDS: Empagliflozin 10 MG TAB PO SCH (09:52)
[2022-07-25] MEDS: Gabapentin 300 MG CAP PO SCH ×2 (09:54→21:14)
[2022-07-25] MEDS: Carvedilol 3.125 MG TAB PO SCH ×2 (10:23→21:15)
[2022-07-25] MEDS ORDERED: Pregabalin 50 MG CAP PO SCH (11:30)
[2022-07-25] MEDS: fentaNYL 50 mcg/mL 1 mL Vial SLOW IVP PRN ×3 (11:54→21:13)
[2022-07-25] MEDS: Clopidogrel Bisulfate 75 MG TAB PO SCH (12:30)
[2022-07-25 12:53] VITALS: BMI 25.6
[2022-07-25] MEDS ORDERED: Dextrose 50% Abboject 50 ML SYRINGE SLOW IVP PRN (17:26)
[2022-07-25] MEDS ORDERED: HumaLOG 300 UNITS/3 ML VIAL SC PRN ×2 (17:26)
[2022-07-25] MEDS ORDERED: Dextrose 5% in Water 1,000 ML IV PRN (17:26)
[2022-07-25] MEDS ORDERED: Amitriptyline HCl 10 MG TAB PO SCH (21:00)
[2022-07-25] MEDS: Pregabalin 50 MG CAP PO SCH (21:15)
[2022-07-26] MEDS: fentaNYL 50 mcg/mL 1 mL Vial SLOW IVP PRN ×3 (02:18→10:52)
[2022-07-26 05:04] LABS: #Eosinphils 0.4 thou/uL (0.0-0.7); #Lymphocytes 0.8 thou/uL (1.20-3.40); #Monocytes 0.6 thou/uL (0.11-0.59); %Basophils 0.6 % (0.0-1.0); %Eosinophils 7.7 % (0.0-10.0); %Lymphocytes 16.8 % (21.0-51.0); %Monocytes 11.8 % (0.0-10.0); %Neutrophils 63.1 % (42.0-75.0); Hemoglobin 10.5 g/dL (14.0-18.0); Mean Corpuscular Hemoglobin 25.3 pg (27.0-31.0); Mean Corpuscular Volume 81.4 fl (78.0-98.0); Mean Platelet Volume 10.3 fL (7.4-10.4); Platelet Count 86 10x3/uL (130-400); RBC Distribution Width 19.1 % (11.5-14.5); Red Blood Cell (RBC) Count 4.15 mill/uL (4.70-6.10); White Blood Cell (WBC) Count 4.8 10x3/uL (4.8-10.8)
[2022-07-26 05:09] LABS: Anion Gap 17 mmol/L (10-20); BUN (Urea Nitrogen) 31 mg/dL (8.4-25.7); Calc. Creatinine Clearance 58 mL/min (70-130); Calcium 9.1 mg/dL (7.8-10.44); Carbon Dioxide 20 mmol/L (23-31); Chloride 106 mmol/L (98-107); Estimated GFR 52; Glucose 148 mg/dL (80-115); Potassium 4.1 mmol/L (3.5-5.1); Sodium 139 mmol/L (136-145)
[2022-07-26 05:15] LABS: Troponin I 0.013 ng/mL (< 0.028)
[2022-07-26] MEDS: Furosemide 40 MG/4 ML VIAL SLOW IVP SCH (05:52)
[2022-07-26] MEDS ORDERED: Levothyroxine Sodium 75 MCG TAB PO SCH (06:00)
[2022-07-26] MEDS ORDERED: Levothyroxine Sodium 25 MCG TAB PO SCH (06:00)
[2022-07-26] MEDS ORDERED: Amiodarone 200 MG TAB PO SCH (09:00)
[2022-07-26] MEDS: Pregabalin 50 MG CAP PO SCH (09:18)
[2022-07-26] MEDS: Apixaban 2.5 MG TAB PO SCH (09:19)
[2022-07-26] MEDS: Gabapentin 300 MG CAP PO SCH (09:19)
[2022-07-26] MEDS: Clopidogrel Bisulfate 75 MG TAB PO SCH (09:19)
[2022-07-26] MEDS: Atorvastatin Calcium 40 MG TAB PO SCH (09:19)
[2022-07-26] MEDS: Empagliflozin 10 MG TAB PO SCH (09:19)
[2022-07-26] MEDS: Carvedilol 3.125 MG TAB PO SCH (09:19)
[2022-07-26 14:00] VITALS: TEMP 97.9
[2022-07-26 16:03] VITALS: BP 118/64
== END 2022-07-26 14:00 | DRG 291 ==
LOC: ERS 23:53 → ERHOLD 07-25 02:25 → 2NO 07-25 12:33
PROVIDERS: ADMIT Internal Medicine; ATTEND Internal Medicine
DX: I13.0 Hypertensive heart and chronic kidney disease with heart failure and stage 1 through stage 4 chronic kidney disease, or unspecified chronic kidney disease (principal); I50.43 Acute on chronic combined systolic (congestive) and diastolic (congestive) heart failure; E11.22 Type 2 diabetes mellitus with diabetic chronic kidney disease; E78.5 Hyperlipidemia, unspecified; I48.0 Paroxysmal atrial fibrillation; Z96.641 Presence of right artificial hip joint; I25.10 Atherosclerotic heart disease of native coronary artery without angina pectoris; N18.30 Chronic kidney disease, stage 3 unspecified; D63.1 Anemia in chronic kidney disease; F41.9 Anxiety disorder, unspecified; Z95.1 Presence of aortocoronary bypass graft; Z91.010 Allergy to peanuts; Z79.51 Long term (current) use of inhaled steroids; Z79.899 Other long term (current) drug therapy; Z79.890 Hormone replacement therapy; I25.2 Old myocardial infarction
CPT/HCPCS: 36415; 36416; 71045; 80048; 80053; 81003; 82550; 83036; 83690; 83735; 83880; 84443; 84484; 85025; 93005; 93798; 96374; 96375; 96376; J1940; J3010

== ENCOUNTER 2022-07-27 23:26 | Observation (INO) | payer MEDICARE, OTHER ==
[2022-07-28 00:08] LABS: #Eosinphils 0.4 thou/uL (0.0-0.7); #Lymphocytes 0.7 thou/uL (1.20-3.40); #Monocytes 0.7 thou/uL (0.11-0.59); #Neutrophils 4.2 thou/uL (1.40-6.50); %Basophils 0.6 % (0.0-1.0); %Eosinophils 6.5 % (0.0-10.0); %Neutrophils 69.9 % (42.0-75.0); Hemoglobin 11.6 g/dL (14.0-18.0); Mean Corpuscular Hemoglobin 26.8 pg (27.0-31.0); Mean Platelet Volume 8.8 fL (7.4-10.4); Platelet Count 113 10x3/uL (130-400); RBC Distribution Width 18.6 % (11.5-14.5); Red Blood Cell (RBC) Count 4.35 mill/uL (4.70-6.10)
[2022-07-28 00:32] LABS: ALT (SGPT) 34 U/L (8-55); AST (SGOT) 40 U/L (5-34); Alkaline Phosphatase 113 U/L (40-110); Anion Gap 17 mmol/L (10-20); BUN (Urea Nitrogen) 35 mg/dL (8.4-25.7); Bilirubin, Total 0.9 mg/dL (0.2-1.2); Calc. Creatinine Clearance 0 mL/min (70-130); Carbon Dioxide 23 mmol/L (23-31); Chloride 102 mmol/L (98-107); Estimated GFR 47; Globulin 2.6 g/dL (2.4-3.5); Glucose 275 mg/dL (80-115); Potassium 4.7 mmol/L (3.5-5.1); Protein, Total 6.6 g/dL (5.8-8.1); Sodium 137 mmol/L (136-145)
[2022-07-28] MEDS ORDERED: Nitroglycerin 2% Ointment 1 INCH/1 GM Packet ONE (00:40)
[2022-07-28] MEDS ORDERED: Acetaminophen 500 MG TAB ONE (00:40)
[2022-07-28] MEDS ORDERED: Morphine 4 MG/ML VIAL ONE ×3 (01:21→10:25)
[2022-07-28 03:00] LABS: Troponin I 0.011 ng/mL (< 0.028)
[2022-07-28 04:09] VITALS: BMI 23.6
[2022-07-28] MEDS: Morphine 4 MG/ML VIAL SLOW IVP PRN ×2 (04:30→10:29)
[2022-07-28] MEDS ORDERED: ALPRAZolam 0.25 MG TAB PO PRN (09:54)
[2022-07-28] MEDS ORDERED: predniSONE 20 MG TAB PO SCH (11:00)
[2022-07-28] MEDS: Gabapentin 300 MG CAP PO SCH ×2 (13:38→20:49)
[2022-07-28] MEDS: Morphine 2 MG/ML VIAL SLOW IVP PRN ×2 (16:08→20:50)
[2022-07-28] MEDS: Carvedilol 3.125 MG TAB PO SCH (20:49)
[2022-07-28] MEDS: Apixaban 2.5 MG TAB PO SCH (20:49)
[2022-07-28] MEDS: Colchicine 0.3 MG TAB PO SCH (20:50)
[2022-07-29] MEDS: Morphine 2 MG/ML VIAL SLOW IVP PRN ×2 (01:08→04:57)
[2022-07-29] MEDS: Levothyroxine Sodium 75 MCG TAB PO SCH (04:57)
[2022-07-29] MEDS ORDERED: Levothyroxine Sodium 25 MCG TAB PO SCH (06:00)
[2022-07-29] MEDS ORDERED: Bumetanide 1 MG TAB PO SCH (07:30)
[2022-07-29] MEDS: Carvedilol 3.125 MG TAB PO SCH ×2 (10:19→20:59)
[2022-07-29] MEDS: Gabapentin 300 MG CAP PO SCH ×3 (10:19→20:58)
[2022-07-29] MEDS: Empagliflozin 10 MG TAB PO SCH (10:20)
[2022-07-29] MEDS: Clopidogrel Bisulfate 75 MG TAB PO SCH (10:20)
[2022-07-29] MEDS: Amiodarone 200 MG TAB PO SCH (10:20)
[2022-07-29] MEDS: Apixaban 2.5 MG TAB PO SCH ×2 (10:21→20:59)
[2022-07-29] MEDS: Colchicine 0.3 MG TAB PO SCH ×2 (10:21→21:09)
[2022-07-29] MEDS: predniSONE 20 MG TAB PO SCH (10:25)
[2022-07-29] MEDS ORDERED: Furosemide 40 MG/4 ML VIAL SLOW IVP SCH (10:30)
[2022-07-29] MEDS: Morphine 4 MG/ML VIAL SLOW IVP PRN ×3 (10:38→21:00)
[2022-07-29] MEDS ORDERED: Atorvastatin Calcium 40 MG TAB PO SCH (21:00)
[2022-07-30] MEDS: Morphine 4 MG/ML VIAL SLOW IVP PRN ×2 (01:03→05:14)
[2022-07-30] MEDS: Levothyroxine Sodium 75 MCG TAB PO SCH (05:15)
[2022-07-30 07:48] LABS: #Eosinphils 0.1 thou/uL (0.0-0.7); #Lymphocytes 0.9 thou/uL (1.20-3.40); #Monocytes 0.6 thou/uL (0.11-0.59); #Neutrophils 5.2 thou/uL (1.40-6.50); %Basophils 0.1 % (0.0-1.0); %Eosinophils 0.9 % (0.0-10.0); %Lymphocytes 12.8 % (21.0-51.0); %Monocytes 8.4 % (0.0-10.0); %Neutrophils 77.7 % (42.0-75.0); Hemoglobin 12.5 g/dL (14.0-18.0); Mean Corpuscular HGB CONC 30.4 g/dL (32.0-36.0); Mean Corpuscular Hemoglobin 24.9 pg (27.0-31.0); Mean Corpuscular Volume 82.1 fl (78.0-98.0); Mean Platelet Volume 9.3 fL (7.4-10.4); Platelet Count 109 10x3/uL (130-400); RBC Distribution Width 18.3 % (11.5-14.5); White Blood Cell (WBC) Count 6.7 10x3/uL (4.8-10.8)
[2022-07-30 07:56] LABS: Anion Gap 17 mmol/L (10-20); BUN (Urea Nitrogen) 40 mg/dL (8.4-25.7); Calc. Creatinine Clearance 51 mL/min (70-130); Calcium 9.4 mg/dL (7.8-10.44); Carbon Dioxide 19 mmol/L (23-31); Chloride 104 mmol/L (98-107); Estimated GFR 50; Glucose 244 mg/dL (80-115); Potassium 4.5 mmol/L (3.5-5.1); Sodium 135 mmol/L (136-145)
[2022-07-30] MEDS ORDERED: Furosemide 40 MG/4 ML VIAL SLOW IVP SCH (09:00)
[2022-07-30] MEDS: predniSONE 20 MG TAB PO SCH (10:00)
[2022-07-30] MEDS: Amiodarone 200 MG TAB PO SCH (10:01)
[2022-07-30] MEDS: Clopidogrel Bisulfate 75 MG TAB PO SCH (10:02)
[2022-07-30] MEDS: Carvedilol 3.125 MG TAB PO SCH (10:02)
[2022-07-30] MEDS: Gabapentin 300 MG CAP PO SCH (10:02)
[2022-07-30] MEDS: Colchicine 0.3 MG TAB PO SCH (10:06)
[2022-07-30] MEDS: Apixaban 2.5 MG TAB PO SCH (10:06)
[2022-07-30] MEDS: Empagliflozin 10 MG TAB PO SCH (11:34)
[2022-07-30 12:13] VITALS: TEMP 97.3
[2022-07-30 12:28] VITALS: BP 121/62
[2022-07-30] MEDS ORDERED: Bumetanide 1 MG TAB PO SCH (16:30)
== END 2022-07-30 12:40 | disposition home or self-care (01) ==
LOC: ERS 23:26 → ERHOLD 07-28 01:34 → 2NO 07-28 13:21
PROVIDERS: ADMIT Internal Medicine; ATTEND Internal Medicine
DX: R07.9 Chest pain, unspecified (principal); I13.0 Hypertensive heart and chronic kidney disease with heart failure and stage 1 through stage 4 chronic kidney disease, or unspecified chronic kidney disease; E11.22 Type 2 diabetes mellitus with diabetic chronic kidney disease; N18.30 Chronic kidney disease, stage 3 unspecified; I50.40 Unspecified combined systolic (congestive) and diastolic (congestive) heart failure; E87.1 Hypo-osmolality and hyponatremia; I48.0 Paroxysmal atrial fibrillation; I25.10 Atherosclerotic heart disease of native coronary artery without angina pectoris; E11.40 Type 2 diabetes mellitus with diabetic neuropathy, unspecified; E78.5 Hyperlipidemia, unspecified; G25.81 Restless legs syndrome; G89.29 Other chronic pain; M54.2 Cervicalgia; M54.9 Dorsalgia, unspecified; I25.2 Old myocardial infarction; Z79.01 Long term (current) use of anticoagulants; Z79.02 Long term (current) use of antithrombotics/antiplatelets; Z79.84 Long term (current) use of oral hypoglycemic drugs; Z79.890 Hormone replacement therapy; Z79.899 Other long term (current) drug therapy; Z88.8 Allergy status to other drugs, medicaments and biological substances; Z91.010 Allergy to peanuts; Z91.018 Allergy to other foods; Z91.048 Other nonmedicinal substance allergy status; Z95.1 Presence of aortocoronary bypass graft
CPT/HCPCS: 71045; 80048; 80053; 84484 ×3; 85025 ×2; 86140; 93005 ×2; 96374; 96375; 96376 ×3; 99285; G0378 ×4; 36415; 93010; J1940; J2270; J2272; J7512

== ENCOUNTER 2022-08-20 06:15 | Day surgery (SDC) | payer MEDICARE, OTHER ==
[2022-08-19 11:45] VITALS: BMI 23.6
[2022-08-20] MEDS ORDERED: PROPOFOL 200 MG/20 ML VIAL ONE (08:33)
[2022-08-20] MEDS ORDERED: Lidocaine 1% PF 5 ML VIAL ONE (08:33)
== END 2022-08-20 09:45 | disposition home or self-care (01) ==
LOC: SDC 06:15
PROVIDERS: ATTEND Internal Medicine Gastroenterology
PROC: 0DB98ZX Excision of Duodenum, Via Natural or Artificial Opening Endoscopic, Diagnostic (ICD-10-PCS; principal; 2022-08-20)
PROC: 0DBL8ZX Excision of Transverse Colon, Via Natural or Artificial Opening Endoscopic, Diagnostic (ICD-10-PCS; 2022-08-20)
DX: D50.9 Iron deficiency anemia, unspecified (principal); D12.3 Benign neoplasm of transverse colon; K64.8 Other hemorrhoids; I48.91 Unspecified atrial fibrillation; I25.10 Atherosclerotic heart disease of native coronary artery without angina pectoris; I50.9 Heart failure, unspecified; Z79.01 Long term (current) use of anticoagulants; Z79.02 Long term (current) use of antithrombotics/antiplatelets; Z79.890 Hormone replacement therapy; Z79.899 Other long term (current) drug therapy; Z91.018 Allergy to other foods; Z91.048 Other nonmedicinal substance allergy status; Z95.1 Presence of aortocoronary bypass graft
CPT/HCPCS: 88305; J2704

== ENCOUNTER 2022-11-20 19:41 | Inpatient (IN) | payer MEDICARE, OTHER ==
[2022-11-21] MEDS ORDERED: Morphine 4 MG/ML VIAL SLOW IVP SCH (00:45)
[2022-11-21 01:25] VITALS: BMI 25.3
[2022-11-21] MEDS ORDERED: Acetaminophen 325 MG TAB PO PRN (04:08)
[2022-11-21] MEDS ORDERED: Nitroglycerin 0.4 MG TAB (25 Tab Bottle) SL PRN (04:08)
[2022-11-21] MEDS ORDERED: Ondansetron ODT 4 MG TAB PO PRN (04:08)
[2022-11-21] MEDS ORDERED: Acetaminophen 650 MG Suppository PR PRN (04:08)
[2022-11-21] MEDS ORDERED: Aspirin Chewable 81 MG TAB PO SCH ×2 (04:30→09:00)
[2022-11-21 04:41] LABS: #Eosinphils 0.2 thou/uL (0.0-0.7); #Monocytes 0.4 thou/uL (0.11-0.59); #Neutrophils 3.4 thou/uL (1.40-6.50); %Basophils 0.4 % (0.0-1.0); %Eosinophils 3.6 % (0.0-10.0); %Lymphocytes 13.5 % (21.0-51.0); %Neutrophils 72.9 % (42.0-75.0); Hematocrit 38.8 % (42.0-52.0); Hemoglobin 11.9 g/dL (14.0-18.0); Mean Corpuscular HGB CONC 30.7 g/dL (32.0-36.0); Mean Corpuscular Hemoglobin 24.7 pg (27.0-31.0); Mean Corpuscular Volume 80.7 fl (78.0-98.0); RBC Distribution Width 17.9 % (11.5-14.5); Red Blood Cell (RBC) Count 4.81 mill/uL (4.70-6.10); White Blood Cell (WBC) Count 4.7 10x3/uL (4.8-10.8)
[2022-11-21 04:45] LABS: Platelet Count 106 10x3/uL (130-400)
[2022-11-21 05:28] LABS: ALT (SGPT) 60 U/L (8-55); AST (SGOT) 79 U/L (5-34); Albumin 3.8 g/dL (3.4-4.8); Alkaline Phosphatase 102 U/L (40-110); Anion Gap 14 mmol/L (10-20); BUN (Urea Nitrogen) 24 mg/dL (8.4-25.7); Bilirubin, Total 1.1 mg/dL (0.2-1.2); CRP (Inflammatory) Less than 0.50 mg/dL (= or < 0.5); Calc. Creatinine Clearance 52 mL/min (70-130); Calcium 9.2 mg/dL (7.8-10.44); Carbon Dioxide 27 mmol/L (23-31); Chloride 99 mmol/L (98-107); Estimated GFR 46; Globulin 2.7 g/dL (2.4-3.5); Glucose 126 mg/dL (80-115); Magnesium 2.2 mg/dL (1.6-2.6); Potassium 3.9 mmol/L (3.5-5.1); Protein, Total 6.5 g/dL (5.8-8.1); Sodium 136 mmol/L (136-145)
[2022-11-21] MEDS: Morphine 4 MG/ML VIAL SLOW IVP PRN ×3 (06:01→23:23)
[2022-11-21] MEDS ORDERED: Furosemide 40 MG/4 ML VIAL SLOW IVP SCH (08:30)
[2022-11-21] MEDS ORDERED: Senokot S 8.6-50 MG TAB PO PRN (08:35)
[2022-11-21] MEDS ORDERED: Bisacodyl 5 MG TAB PO PRN (08:35)
[2022-11-21] MEDS ORDERED: Bisacodyl 10 MG SUPP PR PRN (08:35)
[2022-11-21] MEDS ORDERED: Lactated Ringer's 1,000 ML IV SCH (08:45)
[2022-11-21] MEDS ORDERED: Aspirin 81 mg Enteric Coated Tablet PO SCH (09:00)
[2022-11-21] MEDS: Apixaban 2.5 MG TAB PO SCH ×2 (09:17→20:50)
[2022-11-21] MEDS: Famotidine 20 MG TAB PO SCH (09:17)
[2022-11-21] MEDS: Lactated Ringer's 1,000 ML IV SCH ×2 (10:07→16:30)
[2022-11-21] MEDS: Atorvastatin Calcium 40 MG TAB PO SCH (20:50)
[2022-11-21] MEDS: Ondansetron PF 4 MG/2 ML Vial IVP PRN (23:18)
[2022-11-22 04:29] LABS: #Eosinphils 0.2 thou/uL (0.0-0.7); #Monocytes 0.4 thou/uL (0.11-0.59); #Neutrophils 2.6 thou/uL (1.40-6.50); %Basophils 0.8 % (0.0-1.0); %Eosinophils 5.3 % (0.0-10.0); %Lymphocytes 16.9 % (21.0-51.0); %Monocytes 10.6 % (0.0-10.0); %Neutrophils 65.9 % (42.0-75.0); Hemoglobin 12.3 g/dL (14.0-18.0); Mean Corpuscular Hemoglobin 24.2 pg (27.0-31.0); Mean Corpuscular Volume 80.7 fl (78.0-98.0); RBC Distribution Width 17.6 % (11.5-14.5); Red Blood Cell (RBC) Count 5.08 mill/uL (4.70-6.10)
[2022-11-22 04:46] LABS: Platelet Count 97 10x3/uL (130-400)
[2022-11-22 04:58] LABS: Anion Gap 12 mmol/L (10-20); BUN (Urea Nitrogen) 20 mg/dL (8.4-25.7); Calc. Creatinine Clearance 60 mL/min (70-130); Calcium 9.2 mg/dL (7.8-10.44); Carbon Dioxide 27 mmol/L (23-31); Cardiac Risk 3.7 (Less than 4.5); Chloride 101 mmol/L (98-107); Cholesterol 137 mg/dl (< 200 Desired); Estimated GFR 55; Glucose 151 mg/dL (80-115); HDL Cholesterol 37 mg/dL (>60 Neg Risk); LDL Cholesterol, Calculated 74 mg/dL; Potassium 3.7 mmol/L (3.5-5.1); Sodium 136 mmol/L (136-145); Triglycerides 128 mg/dL (Less than 150)
[2022-11-22] MEDS: Morphine 4 MG/ML VIAL SLOW IVP PRN ×2 (05:14→18:28)
[2022-11-22] MEDS: Ondansetron PF 4 MG/2 ML Vial IVP PRN ×3 (05:57→22:06)
[2022-11-22] MEDS: Famotidine 20 MG TAB PO SCH (09:24)
[2022-11-22] MEDS: Aspirin 81 mg Enteric Coated Tablet PO SCH (09:24)
[2022-11-22] MEDS: Apixaban 2.5 MG TAB PO SCH ×2 (09:24→20:15)
[2022-11-22] MEDS: Amiodarone 200 MG TAB PO SCH (09:25)
[2022-11-22] MEDS ORDERED: traMADol HCl 50 MG TAB PO PRN (13:50)
[2022-11-22] MEDS ORDERED: Pantoprazole 40 MG VIAL IVP SCH ×2 (17:45→18:45)
[2022-11-22] MEDS ORDERED: HYDROcodone/Acetaminophen 5/325 mg Tablet PO PRN (17:47)
[2022-11-22] MEDS: Atorvastatin Calcium 40 MG TAB PO SCH (20:15)
[2022-11-22] MEDS: Colchicine 0.3 MG TAB PO SCH (20:16)
[2022-11-22] MEDS: Lorazepam 0.5 MG TAB PO PRN (22:10)
[2022-11-23] MEDS: Morphine 4 MG/ML VIAL SLOW IVP PRN ×2 (00:19→05:40)
[2022-11-23 04:45] LABS: #Eosinphils 0.2 thou/uL (0.0-0.7); #Monocytes 0.4 thou/uL (0.11-0.59); #Neutrophils 2.5 thou/uL (1.40-6.50); %Basophils 0.5 % (0.0-1.0); %Eosinophils 4.9 % (0.0-10.0); %Lymphocytes 17.7 % (21.0-51.0); %Monocytes 11.3 % (0.0-10.0); %Neutrophils 65.1 % (42.0-75.0); Hematocrit 41.3 % (42.0-52.0); Hemoglobin 12.5 g/dL (14.0-18.0); Mean Corpuscular HGB CONC 30.3 g/dL (32.0-36.0); Mean Corpuscular Hemoglobin 24.5 pg (27.0-31.0); RBC Distribution Width 17.5 % (11.5-14.5); White Blood Cell (WBC) Count 3.9 10x3/uL (4.8-10.8)
[2022-11-23 05:00] LABS: Platelet Count 105 10x3/uL (130-400)
[2022-11-23 05:08] LABS: Anion Gap 14 mmol/L (10-20); BUN (Urea Nitrogen) 19 mg/dL (8.4-25.7); Calc. Creatinine Clearance 65 mL/min (70-130); Carbon Dioxide 23 mmol/L (23-31); Chloride 103 mmol/L (98-107); Estimated GFR 61; Glucose 95 mg/dL (80-115); Potassium 3.8 mmol/L (3.5-5.1); Sodium 136 mmol/L (136-145)
[2022-11-23] MEDS: Ondansetron PF 4 MG/2 ML Vial IVP PRN (05:45)
[2022-11-23] MEDS: Lorazepam 0.5 MG TAB PO PRN (06:33)
[2022-11-23] MEDS: Aspirin 81 mg Enteric Coated Tablet PO SCH (08:48)
[2022-11-23] MEDS: Amiodarone 200 MG TAB PO SCH (08:48)
[2022-11-23] MEDS: Apixaban 2.5 MG TAB PO SCH (08:48)
[2022-11-23] MEDS: Colchicine 0.3 MG TAB PO SCH (08:48)
[2022-11-23] MEDS: Famotidine 20 MG TAB PO SCH (08:48)
[2022-11-23 15:19] VITALS: BP 143/72; TEMP 98
== END 2022-11-23 16:15 | disposition home or self-care (01) | DRG 312 ==
LOC: 2NO 11-21 00:11 → OBSVTOIN 11-22 17:46
PROVIDERS: ADMIT Hospitalist; ATTEND Internal Medicine
DX: I95.1 Orthostatic hypotension (principal); I13.0 Hypertensive heart and chronic kidney disease with heart failure and stage 1 through stage 4 chronic kidney disease, or unspecified chronic kidney disease; I50.42 Chronic combined systolic (congestive) and diastolic (congestive) heart failure; N17.9 Acute kidney failure, unspecified; R07.89 Other chest pain; I25.10 Atherosclerotic heart disease of native coronary artery without angina pectoris; W18.30XA Fall on same level, unspecified, initial encounter; H53.9 Unspecified visual disturbance; E11.22 Type 2 diabetes mellitus with diabetic chronic kidney disease; R51.9 Headache, unspecified; Z95.1 Presence of aortocoronary bypass graft; Z91.018 Allergy to other foods; Z88.8 Allergy status to other drugs, medicaments and biological substances; Z79.899 Other long term (current) drug therapy; Z79.890 Hormone replacement therapy; Z98.890 Other specified postprocedural states; Z90.49 Acquired absence of other specified parts of digestive tract; I25.2 Old myocardial infarction; N18.30 Chronic kidney disease, stage 3 unspecified; Z87.891 Personal history of nicotine dependence; D69.6 Thrombocytopenia, unspecified; I48.0 Paroxysmal atrial fibrillation; E78.2 Mixed hyperlipidemia; E11.42 Type 2 diabetes mellitus with diabetic polyneuropathy; F41.9 Anxiety disorder, unspecified
CPT/HCPCS: 36415; 36416; 71046; 80048; 80053; 80061; 83735; 85025; 86140; 93005; 93010; 94760; 96374; 96375; 96376; C9113; G0378; J1940; J2270; J2405; J7120; Q0162

== ENCOUNTER 2023-01-30 07:17 | Day surgery (SDC) | payer MEDICARE, OTHER ==
[2023-01-29 12:47] VITALS: BMI 25.7
[2023-01-30] MEDS ORDERED: Lidocaine 1% PF 5 ML VIAL ONE (09:27)
[2023-01-30] MEDS ORDERED: PROPOFOL 200 MG/20 ML VIAL ONE (09:27)
== END 2023-01-30 11:22 | disposition home or self-care (01) ==
LOC: SDC 07:17
PROVIDERS: ATTEND Internal Medicine Cardiovascular Disease
PROC: B246ZZ4 Ultrasonography of Right and Left Heart, Transesophageal (ICD-10-PCS; principal; 2023-01-30)
DX: I48.0 Paroxysmal atrial fibrillation (principal); I13.0 Hypertensive heart and chronic kidney disease with heart failure and stage 1 through stage 4 chronic kidney disease, or unspecified chronic kidney disease; I50.42 Chronic combined systolic (congestive) and diastolic (congestive) heart failure; N18.9 Chronic kidney disease, unspecified; E11.22 Type 2 diabetes mellitus with diabetic chronic kidney disease; I25.5 Ischemic cardiomyopathy; I25.10 Atherosclerotic heart disease of native coronary artery without angina pectoris; Z92.89 Personal history of other medical treatment; E78.00 Pure hypercholesterolemia, unspecified; D64.9 Anemia, unspecified; Z95.5 Presence of coronary angioplasty implant and graft; Z90.49 Acquired absence of other specified parts of digestive tract; Z96.641 Presence of right artificial hip joint; Z98.890 Other specified postprocedural states; Z87.891 Personal history of nicotine dependence; Z79.82 Long term (current) use of aspirin; Z79.01 Long term (current) use of anticoagulants; Z79.02 Long term (current) use of antithrombotics/antiplatelets; Z79.899 Other long term (current) drug therapy
CPT/HCPCS: 93312; J2704

== ENCOUNTER 2023-02-28 20:37 | Inpatient (IN) | payer MEDICARE, OTHER ==
[2023-02-28] MEDS ORDERED: Morphine 2 MG/ML VIAL SLOW IVP SCH (23:00)
[2023-03-01 00:11] LABS: Troponin I Less than 0.010 ng/mL (< 0.028)
[2023-03-01] MEDS ORDERED: Ranolazine 500 MG ER.TAB PO SCH (00:30)
[2023-03-01] MEDS ORDERED: Gabapentin 300 MG CAP PO SCH (00:30)
[2023-03-01] MEDS ORDERED: Apixaban 2.5 MG TAB PO SCH (00:30)
[2023-03-01 01:54] LABS: #Eosinphils 0.3 thou/uL (0.0-0.7); #Monocytes 0.4 thou/uL (0.11-0.59); #Neutrophils 3.3 thou/uL (1.40-6.50); %Basophils 0.6 % (0.0-1.0); %Eosinophils 6.7 % (0.0-10.0); %Lymphocytes 17.1 % (21.0-51.0); %Monocytes 7.9 % (0.0-10.0); %Neutrophils 67.5 % (42.0-75.0); Hematocrit 36.8 % (42.0-52.0); Hemoglobin 11.2 g/dL (14.0-18.0); Mean Corpuscular HGB CONC 30.4 g/dL (32.0-36.0); Mean Corpuscular Hemoglobin 24.1 pg (27.0-31.0); Mean Corpuscular Volume 79.1 fl (78.0-98.0); Mean Platelet Volume 11.5 fL (7.4-10.4); Platelet Count 128 10x3/uL (130-400); RBC Distribution Width 17.6 % (11.5-14.5); Red Blood Cell (RBC) Count 4.65 mill/uL (4.70-6.10); White Blood Cell (WBC) Count 4.9 10x3/uL (4.8-10.8)
[2023-03-01 02:14] LABS: Anion Gap 14 mmol/L (10-20); BUN (Urea Nitrogen) 20 mg/dL (8.4-25.7); Calc. Creatinine Clearance 57 mL/min (70-130); Calcium 8.9 mg/dL (7.8-10.44); Carbon Dioxide 21 mmol/L (23-31); Chloride 105 mmol/L (98-107); Estimated GFR 54; Glucose 124 mg/dL (83-110); Potassium 4.3 mmol/L (3.5-5.1); Sodium 136 mmol/L (136-145)
[2023-03-01 02:15] LABS: Troponin I Less than 0.010 ng/mL (< 0.028)
[2023-03-01] MEDS ORDERED: Morphine 2 MG/ML VIAL SLOW IVP SCH (03:15)
[2023-03-01] MEDS: Nitroglycerin 0.4 MG TAB (25 Tab Bottle) SL PRN ×2 (04:09→04:15)
[2023-03-01] MEDS ORDERED: Calcium Carbonate 500 MG ChewTAB PO PRN (04:22)
[2023-03-01] MEDS ORDERED: Ondansetron ODT 4 MG TAB PO PRN (04:22)
[2023-03-01] MEDS: Ondansetron PF 4 MG/2 ML Vial IVP PRN ×4 (04:33→22:00)
[2023-03-01] MEDS ORDERED: Lidocaine 2% Viscous Solution 10 ML, Aluminum & Magnesium Hydroxide 30 ML SSW SCH (04:45)
[2023-03-01] MEDS ORDERED: Nitroglycerin 50 MG/250 ML BOT 250 ML IVPB SCH (05:15)
[2023-03-01] MEDS ORDERED: Ketorolac Tromethamine 30 MG/ML VIAL IVP PRN (05:35)
[2023-03-01] MEDS: Levothyroxine Sodium 75 MCG TAB PO SCH (05:58)
[2023-03-01 06:41] LABS: Troponin I Less than 0.010 ng/mL (< 0.028)
[2023-03-01] MEDS: Ezetimibe 10 MG TAB PO SCH (08:08)
[2023-03-01] MEDS: Aspirin Chewable 81 MG TAB PO SCH (08:08)
[2023-03-01] MEDS: Gabapentin 300 MG CAP PO SCH ×3 (08:08→20:33)
[2023-03-01] MEDS: Isosorbide Mononitrate 30 MG ER.TAB PO SCH (08:08)
[2023-03-01] MEDS: Clopidogrel Bisulfate 75 MG TAB PO SCH (08:08)
[2023-03-01] MEDS: Amiodarone 200 MG TAB PO SCH (08:08)
[2023-03-01] MEDS: Apixaban 2.5 MG TAB PO SCH ×2 (08:09→20:34)
[2023-03-01] MEDS: Ranolazine 500 MG ER.TAB PO SCH ×2 (08:09→20:34)
[2023-03-01] MEDS: Pantoprazole 40 MG VIAL IVP SCH ×2 (08:09→20:31)
[2023-03-01] MEDS: Carvedilol 3.125 MG TAB PO SCH ×2 (08:09→17:37)
[2023-03-01] MEDS: Atorvastatin Calcium 40 MG TAB PO SCH (08:09)
[2023-03-01] MEDS: Empagliflozin 10 MG TAB PO SCH (08:09)
[2023-03-01] MEDS ORDERED: Famotidine 20 MG TAB PO SCH (09:00)
[2023-03-01] MEDS: traMADol HCl 50 MG TAB PO PRN (20:31)
[2023-03-01] MEDS: Acetaminophen 325 MG TAB PO PRN (20:32)
[2023-03-02 03:32] LABS: #Eosinphils 0.3 thou/uL (0.0-0.7); #Monocytes 0.5 thou/uL (0.11-0.59); #Neutrophils 2.5 thou/uL (1.40-6.50); %Basophils 0.7 % (0.0-1.0); %Eosinophils 7.5 % (0.0-10.0); %Lymphocytes 18.4 % (21.0-51.0); %Monocytes 11.7 % (0.0-10.0); %Neutrophils 61.5 % (42.0-75.0); Hematocrit 37.7 % (42.0-52.0); Hemoglobin 11.4 g/dL (14.0-18.0); Mean Corpuscular HGB CONC 30.2 g/dL (32.0-36.0); Mean Corpuscular Volume 79.4 fl (78.0-98.0); Mean Platelet Volume 12.3 fL (7.4-10.4); Platelet Count 125 10x3/uL (130-400); RBC Distribution Width 17.4 % (11.5-14.5); Red Blood Cell (RBC) Count 4.75 mill/uL (4.70-6.10)
[2023-03-02] MEDS: Ondansetron PF 4 MG/2 ML Vial IVP PRN ×4 (03:47→21:44)
[2023-03-02] MEDS: traMADol HCl 50 MG TAB PO PRN (03:47)
[2023-03-02] MEDS: Acetaminophen 325 MG TAB PO PRN (03:48)
[2023-03-02 03:54] LABS: Anion Gap 13 mmol/L (10-20); BUN (Urea Nitrogen) 21 mg/dL (8.4-25.7); Calc. Creatinine Clearance 55 mL/min (70-130); Calcium 9.1 mg/dL (7.8-10.44); Carbon Dioxide 25 mmol/L (23-31); Chloride 104 mmol/L (98-107); Estimated GFR 52; Glucose 107 mg/dL (83-110); Potassium 4.5 mmol/L (3.5-5.1); Sodium 137 mmol/L (136-145)
[2023-03-02 05:23] LABS: Bacteria/HPF None Seen HPF (None Seen); Bilirubin Negative (Negative); Blood, Urine Negative (Negative); CAUTI Indications for Culture Dysuria,urgency,freq; Clarity Clear (Clear); Glucose, Urine (Dipstick) Greater than 1000 mg/dL (Negative); Ketone, Urine Negative (Negative); Leukocyte Negative Leu/uL (Negative); Nitrite Negative (Negative); Protein, Urine (Dipstick) 20 mg/dL (Neg-Trace); RBC/HPF 0-3 HPF (0-3); Specific Gravity, Urine 1.041 (1.002-1.036); Squamous Epithelial None Seen HPF (0-3); Urobilinogen Normal mg/dL (Less than 2); WBC/HPF 0-3 HPF (0-3); pH, Urine 5.5 (5.0-9.0)
[2023-03-02 05:24] LABS: Urine Culture Reflex No No
[2023-03-02] MEDS: Levothyroxine Sodium 75 MCG TAB PO SCH (06:22)
[2023-03-02] MEDS: Carvedilol 3.125 MG TAB PO SCH ×2 (08:26→16:51)
[2023-03-02] MEDS: Clopidogrel Bisulfate 75 MG TAB PO SCH (08:43)
[2023-03-02] MEDS: Amiodarone 200 MG TAB PO SCH (08:43)
[2023-03-02] MEDS: Gabapentin 300 MG CAP PO SCH ×3 (08:44→20:46)
[2023-03-02] MEDS: Ezetimibe 10 MG TAB PO SCH (08:44)
[2023-03-02] MEDS: Ranolazine 500 MG ER.TAB PO SCH ×2 (08:46→20:46)
[2023-03-02] MEDS: Atorvastatin Calcium 40 MG TAB PO SCH (08:46)
[2023-03-02] MEDS: Isosorbide Mononitrate 30 MG ER.TAB PO SCH (08:47)
[2023-03-02] MEDS: Aspirin Chewable 81 MG TAB PO SCH (08:47)
[2023-03-02] MEDS: Apixaban 2.5 MG TAB PO SCH ×2 (08:47→20:47)
[2023-03-02] MEDS: Empagliflozin 10 MG TAB PO SCH (08:56)
[2023-03-02] MEDS: Pantoprazole 40 MG VIAL IVP SCH ×2 (08:57→20:47)
[2023-03-02] MEDS ORDERED: Tamsulosin HCl 0.4 MG CAP PO SCH (21:00)
[2023-03-03] MEDS: Ondansetron PF 4 MG/2 ML Vial IVP PRN ×2 (03:47→09:52)
[2023-03-03 05:54] VITALS: BMI 24.3
[2023-03-03] MEDS: Levothyroxine Sodium 75 MCG TAB PO SCH (06:05)
[2023-03-03] MEDS: Carvedilol 3.125 MG TAB PO SCH ×2 (09:17→17:26)
[2023-03-03] MEDS: Clopidogrel Bisulfate 75 MG TAB PO SCH (09:17)
[2023-03-03] MEDS: Gabapentin 300 MG CAP PO SCH ×2 (09:17→15:41)
[2023-03-03] MEDS: Pantoprazole 40 MG VIAL IVP SCH (09:18)
[2023-03-03] MEDS: Amiodarone 200 MG TAB PO SCH (09:18)
[2023-03-03] MEDS: Aspirin Chewable 81 MG TAB PO SCH (09:18)
[2023-03-03] MEDS: Ranolazine 500 MG ER.TAB PO SCH (09:18)
[2023-03-03] MEDS: Empagliflozin 10 MG TAB PO SCH (09:18)
[2023-03-03] MEDS: Ezetimibe 10 MG TAB PO SCH (09:18)
[2023-03-03] MEDS: Atorvastatin Calcium 40 MG TAB PO SCH (09:18)
[2023-03-03] MEDS: Apixaban 2.5 MG TAB PO SCH (09:18)
[2023-03-03] MEDS: Isosorbide Mononitrate 30 MG ER.TAB PO SCH (09:18)
[2023-03-03 12:59] VITALS: BP 122/90
[2023-03-03 16:33] VITALS: TEMP 97.8
== END 2023-03-03 18:00 | disposition home or self-care (01) | DRG 313 ==
LOC: 2SW 22:27 → CCU 03-01 05:03 → OBSVTOIN 03-02 11:45
PROVIDERS: ADMIT Student in an Organized Health Care Education/Training Program; ATTEND Internal Medicine
DX: R07.9 Chest pain, unspecified (principal); I13.0 Hypertensive heart and chronic kidney disease with heart failure and stage 1 through stage 4 chronic kidney disease, or unspecified chronic kidney disease; I25.10 Atherosclerotic heart disease of native coronary artery without angina pectoris; I50.9 Heart failure, unspecified; I48.91 Unspecified atrial fibrillation; E11.9 Type 2 diabetes mellitus without complications; E78.5 Hyperlipidemia, unspecified; D63.1 Anemia in chronic kidney disease; N18.31 Chronic kidney disease, stage 3a; R26.81 Unsteadiness on feet; R33.9 Retention of urine, unspecified; R25.1 Tremor, unspecified; Z95.1 Presence of aortocoronary bypass graft; Z91.018 Allergy to other foods; Z88.8 Allergy status to other drugs, medicaments and biological substances; Z79.899 Other long term (current) drug therapy; Z79.890 Hormone replacement therapy; Z90.49 Acquired absence of other specified parts of digestive tract; Z98.890 Other specified postprocedural states
CPT/HCPCS: 36415; 36416; 71045; 71275; 74174; 80048; 81001; 84484; 85025; 93005; 93010; 94760; 96374; 96375; 96376; C9113; G0378; J1885; J2272; J2405

== ENCOUNTER 2023-05-06 16:27 | Inpatient (IN) | payer MEDICARE, OTHER ==
[2023-05-26 09:41] VITALS: BMI 25.9
[2023-05-27] MEDS ORDERED: Heparin 10,000 UNITS/ 10 ML VIAL ONE (08:19)
[2023-05-27] MEDS ORDERED: Protamine Sulfate 50 MG/5 ML VIAL ONE (08:19)
[2023-05-27] MEDS ORDERED: fentaNYL 50 mcg/mL 1 mL Vial ONE ×4 (08:26→11:55)
[2023-05-27] MEDS ORDERED: SUGAMMADEX SODIUM 200 MG/2 ML VIAL ONE (08:26)
[2023-05-27] MEDS ORDERED: CEFAZOLIN 2 GM VIAL ONE (08:27)
[2023-05-27] MEDS ORDERED: Midazolam HCl 2 mg/2 ml Vial ONE (10:00)
[2023-05-27] MEDS ORDERED: Lidocaine 1% PF 5 ML VIAL ONE (10:04)
[2023-05-27] MEDS ORDERED: PROPOFOL 200 MG/20 ML VIAL ONE (10:04)
[2023-05-27] MEDS ORDERED: Ondansetron PF 4 MG/2 ML Vial ONE (10:04)
[2023-05-27] MEDS ORDERED: Rocuronium Bromide 10 MG/ML (10ML VIAL) ONE (10:04)
[2023-05-27] MEDS ORDERED: Dexamethasone 20 MG/5 ML VIAL ONE (10:04)
[2023-05-27] MEDS ORDERED: Iopamidol 370 76% 100 ML VIAL ONE (10:21)
[2023-05-27] MEDS ORDERED: fentaNYL PF 100 MCG/2 ML SYRINGE ONE (12:11)
== END 2023-05-27 14:26 | disposition home or self-care (01) | DRG 274 ==
LOC: SURG A 05-27 07:21
PROVIDERS: ADMIT Internal Medicine Cardiovascular Disease; ATTEND Internal Medicine Cardiovascular Disease
PROC: 02L73DK Occlusion of Left Atrial Appendage with Intraluminal Device, Percutaneous Approach (ICD-10-PCS; principal; 2023-05-27)
DX: I48.0 Paroxysmal atrial fibrillation (principal); Z00.6 Encounter for examination for normal comparison and control in clinical research program; I13.0 Hypertensive heart and chronic kidney disease with heart failure and stage 1 through stage 4 chronic kidney disease, or unspecified chronic kidney disease; I50.22 Chronic systolic (congestive) heart failure; E11.22 Type 2 diabetes mellitus with diabetic chronic kidney disease; E78.00 Pure hypercholesterolemia, unspecified; I25.10 Atherosclerotic heart disease of native coronary artery without angina pectoris; E03.9 Hypothyroidism, unspecified; D64.9 Anemia, unspecified; I25.5 Ischemic cardiomyopathy; Z96.641 Presence of right artificial hip joint; Z82.49 Family history of ischemic heart disease and other diseases of the circulatory system; N18.9 Chronic kidney disease, unspecified; Z79.899 Other long term (current) drug therapy; Z90.49 Acquired absence of other specified parts of digestive tract; Z88.8 Allergy status to other drugs, medicaments and biological substances; Z91.018 Allergy to other foods; Z91.09 Other allergy status, other than to drugs and biological substances; Z98.890 Other specified postprocedural states; Z95.1 Presence of aortocoronary bypass graft; Z87.891 Personal history of nicotine dependence
CPT/HCPCS: 33340; 85347; 86850; 86900; 86901; 93005; 93010; 93306; 93312; C1759; C1760; C1769; C1893; C1894; J1100; J1644; J2250; J2405; J2704; J2720; J3010; Q9967

== ENCOUNTER 2023-06-17 16:28 | Inpatient (IN) | payer MEDICARE, OTHER ==
[2023-06-17 17:18] LABS: #Eosinphils 0.2 thou/uL (0.0-0.7); #Monocytes 0.5 thou/uL (0.11-0.59); #Neutrophils 5.5 thou/uL (1.40-6.50); %Basophils 0.4 % (0.0-1.0); %Eosinophils 2.4 % (0.0-10.0); %Monocytes 6.7 % (0.0-10.0); %Neutrophils 78.1 % (42.0-75.0); Hematocrit 54.5 % (42.0-52.0); Hemoglobin 18.7 g/dL (14.0-18.0); Mean Corpuscular HGB CONC 34.3 g/dL (32.0-36.0); Mean Corpuscular Volume 90.2 fl (78.0-98.0); Mean Platelet Volume 12.6 fL (7.4-10.4); Platelet Count 146 10x3/uL (130-400); Red Blood Cell (RBC) Count 6.04 mill/uL (4.70-6.10)
[2023-06-17 17:55] LABS: ALT (SGPT) 73 U/L (8-55); AST (SGOT) 97 U/L (5-34); Albumin 4.4 g/dL (3.4-4.8); Alkaline Phosphatase 111 U/L (40-110); Anion Gap 19 mmol/L (10-20); BUN (Urea Nitrogen) 40 mg/dL (8.4-25.7); Calc. Creatinine Clearance 0 mL/min (70-130); Calcium 9.4 mg/dL (7.8-10.44); Carbon Dioxide 28 mmol/L (23-31); Chloride 95 mmol/L (98-107); Estimated GFR 27; Globulin 3.2 g/dL (2.4-3.5); Glucose 399 mg/dL (83-110); Magnesium 2.1 mg/dL (1.6-2.6); Potassium 4.2 mmol/L (3.5-5.1); Protein, Total 7.6 g/dL (5.8-8.1); Sodium 138 mmol/L (136-145)
[2023-06-17 18:00] LABS: Troponin I Less than 0.010 ng/mL (< 0.028)
[2023-06-17] MEDS ORDERED: Acetaminophen 500 MG TAB ONE (18:37)
[2023-06-17] MEDS ORDERED: Morphine 4 MG/ML VIAL ONE (18:38)
[2023-06-17] MEDS ORDERED: LORazepam 2 MG/ML SYR.(CARPUJECT) ONE ×2 (18:42→18:51)
[2023-06-17] MEDS ORDERED: Acetaminophen 650 MG Suppository PR PRN (18:47)
[2023-06-17] MEDS ORDERED: Ondansetron ODT 4 MG TAB PO PRN (18:47)
[2023-06-17] MEDS ORDERED: Bisacodyl 5 MG TAB PO PRN (18:47)
[2023-06-17] MEDS ORDERED: Senokot S 8.6-50 MG TAB PO PRN (18:47)
[2023-06-17] MEDS ORDERED: levETIRAcetam 500 MG (5 mL) VIAL ONE (18:49)
[2023-06-17 19:16] LABS: Bacteria/HPF None Seen HPF (None Seen); Bilirubin Negative (Negative); Blood, Urine Negative (Negative); CAUTI Indications for Culture Alt mental st,lethar; Clarity Clear (Clear); Glucose, Urine (Dipstick) Greater than 1000 mg/dL (Negative); Ketone, Urine Negative (Negative); Leukocyte Negative Leu/uL (Negative); Mucous/LPF Rare LPF (<2+); Nitrite Negative (Negative); Protein, Urine (Dipstick) Negative (Neg-Trace); RBC/HPF None Seen HPF (0-3); Specific Gravity, Urine 1.011 (1.002-1.036); Squamous Epithelial None Seen HPF (0-3); Urobilinogen Normal mg/dL (Less than 2); WBC/HPF 0-3 HPF (0-3)
[2023-06-17 19:18] LABS: Urine Culture Reflex No No
[2023-06-17] MEDS: Aspirin 325 mg Enteric Coated Tablet PO SCH (20:32)
[2023-06-17] MEDS: Sodium Chloride 0.9% 1,000 ML IV SCH (20:34)
[2023-06-17] MEDS: Nitroglycerin 0.4 MG TAB (25 Tab Bottle) SL PRN (20:59)
[2023-06-17] MEDS: Ranolazine ER 500 MG TAB PO SCH (20:59)
[2023-06-17] MEDS: Atorvastatin Calcium 40 MG TAB PO SCH (20:59)
[2023-06-17] MEDS: Famotidine 20 MG TAB PO SCH (20:59)
[2023-06-17] MEDS ORDERED: Dextrose 50% Abboject 50 ML SYRINGE SLOW IVP PRN (21:02)
[2023-06-17] MEDS ORDERED: Dextrose 5% in Water 1,000 ML IV PRN (21:02)
[2023-06-17] MEDS ORDERED: Glucagon 1 MG/ML KIT IM PRN (21:02)
[2023-06-17 21:30] LABS: CK (CPK) 40 U/L (30-200); Hemoglobin A1c 7.5 % (4.0-6.0)
[2023-06-17 21:33] LABS: Troponin I 0.011 ng/mL (< 0.028)
[2023-06-17] MEDS: HumaLOG 300 UNITS/3 ML VIAL SC PRN (22:13)
[2023-06-17] MEDS: Lorazepam 2 MG/ML VIAL SLOW IVP PRN (22:34)
[2023-06-17] MEDS: HYDROcodone/Acetaminophen 5/325 mg Tablet PO SCH (23:06)
[2023-06-17 23:11] LABS: Amphetamine Not Detected (NotDetected); Barbiturates Screen Not Detected (NotDetected); Benzodiazepine Screen Not Detected (NotDetected); Cocaine Metabolite Screen Not Detected (NotDetected); Methadone Not Detected (NotDetected); Methamphetamine Not Detected (NotDetected); Opiate Screen Not Detected (NotDetected); Oxycodone Screen Not Detected (NotDetected); Phencyclidine (PCP) Not Detected (NotDetected); THC/Cannabinoid Screen Not Detected (NotDetected); Tricyclic Screen Not Detected (NotDetected)
[2023-06-18] MEDS: Morphine 2 MG/ML VIAL SLOW IVP SCH (01:26)
[2023-06-18 03:00] VITALS: BMI 25.4
[2023-06-18 05:46] LABS: #Eosinphils 0.2 thou/uL (0.0-0.7); #Monocytes 0.5 thou/uL (0.11-0.59); %Basophils 0.4 % (0.0-1.0); %Eosinophils 4.8 % (0.0-10.0); %Monocytes 10.9 % (0.0-10.0); %Neutrophils 64.2 % (42.0-75.0); Hematocrit 45.7 % (42.0-52.0); Mean Corpuscular HGB CONC 33.7 g/dL (32.0-36.0); Mean Corpuscular Hemoglobin 30.6 pg (27.0-31.0); Mean Corpuscular Volume 90.9 fl (78.0-98.0); Mean Platelet Volume 12.7 fL (7.4-10.4); Platelet Count 92 10x3/uL (130-400); RBC Distribution Width 15.9 % (11.5-14.5); Red Blood Cell (RBC) Count 5.03 mill/uL (4.70-6.10); White Blood Cell (WBC) Count 4.6 10x3/uL (4.8-10.8)
[2023-06-18 05:49] LABS: Hemoglobin 15.4 g/dL (14.0-18.0)
[2023-06-18 06:19] LABS: Anion Gap 15 mmol/L (10-20); BUN (Urea Nitrogen) 39 mg/dL (8.4-25.7); Calc. Creatinine Clearance 41 mL/min (70-130); Calcium 8.5 mg/dL (7.8-10.44); Carbon Dioxide 25 mmol/L (23-31); Chloride 104 mmol/L (98-107); Cholesterol 154 mg/dl (< 200 Desired); Estimated GFR 35; Glucose 184 mg/dL (83-110); HDL Cholesterol 31 mg/dL (>60 Neg Risk); LDL Cholesterol, Calculated 88 mg/dL; Potassium 3.9 mmol/L (3.5-5.1); Sodium 140 mmol/L (136-145); Triglycerides 174 mg/dL (Less than 150)
[2023-06-18] MEDS: HumaLOG 300 UNITS/3 ML VIAL SC PRN (06:29)
[2023-06-18] MEDS: Levothyroxine Sodium 50 MCG TAB PO SCH (06:32)
[2023-06-18] MEDS ORDERED: Empagliflozin 10 MG TAB PO SCH (09:00)
[2023-06-18] MEDS: Sodium Chloride 0.9% 1,000 ML IV SCH (09:17)
[2023-06-18] MEDS: Aspirin 81 mg Enteric Coated Tablet PO SCH (09:19)
[2023-06-18] MEDS: Amiodarone 200 MG TAB PO SCH (09:19)
[2023-06-18] MEDS: Ezetimibe 10 MG TAB PO SCH (09:19)
[2023-06-18] MEDS: levETIRAcetam 500 MG TAB PO SCH (09:20)
[2023-06-18] MEDS: Isosorbide Mononitrate 30 MG ER.TAB PO SCH (09:20)
[2023-06-18] MEDS: Acetaminophen 325 MG TAB PO PRN (12:13)
[2023-06-18] MEDS: Morphine 2 MG/ML VIAL SLOW IVP PRN (13:20)
[2023-06-18 16:17] LABS: Troponin I Less than 0.010 ng/mL (< 0.028)
[2023-06-18] MEDS: Gabapentin 300 MG CAP PO SCH (17:46)
[2023-06-18 20:12] LABS: Troponin I Less than 0.010 ng/mL (< 0.028)
[2023-06-18] MEDS: Ranolazine ER 500 MG TAB PO SCH (21:22)
[2023-06-18] MEDS: Apixaban 2.5 MG TAB PO SCH (21:22)
[2023-06-19] MEDS: Carvedilol 6.25 MG TAB PO SCH ×2 (02:07→08:36)
[2023-06-19 05:23] LABS: Anion Gap 12 mmol/L (10-20); BUN (Urea Nitrogen) 26 mg/dL (8.4-25.7); Calc. Creatinine Clearance 65 mL/min (70-130); Calcium 8.8 mg/dL (7.8-10.44); Carbon Dioxide 23 mmol/L (23-31); Chloride 110 mmol/L (98-107); Estimated GFR 61; Glucose 126 mg/dL (83-110); Potassium 4.1 mmol/L (3.5-5.1); Sodium 141 mmol/L (136-145)
[2023-06-19 05:45] LABS: Free T4 (Free Thyroxine) 1.08 ng/dL (0.70-1.48)
[2023-06-19] MEDS: NIFEdipine XL 30 MG ER.TAB PO SCH (08:30)
[2023-06-19] MEDS: Clopidogrel Bisulfate 75 MG TAB PO SCH (08:30)
[2023-06-19] MEDS: Ondansetron PF 4 MG/2 ML Vial IVP PRN (10:09)
[2023-06-19] MEDS: Morphine 2 MG/ML VIAL SLOW IVP SCH (10:41)
[2023-06-19] MEDS: Isosorbide Mononitrate 30 MG ER.TAB PO SCH (14:43)
[2023-06-20 05:39] LABS: Anion Gap 13 mmol/L (10-20); BUN (Urea Nitrogen) 22 mg/dL (8.4-25.7); Calc. Creatinine Clearance 69 mL/min (70-130); Calcium 8.9 mg/dL (7.8-10.44); Carbon Dioxide 22 mmol/L (23-31); Chloride 109 mmol/L (98-107); Estimated GFR 65; Glucose 127 mg/dL (83-110); Potassium 4.1 mmol/L (3.5-5.1); Sodium 140 mmol/L (136-145)
[2023-06-20] MEDS: Levothyroxine Sodium 50 MCG TAB PO SCH (06:42)
[2023-06-20] MEDS: Levothyroxine Sodium 25 MCG TAB PO SCH (06:43)
[2023-06-20] MEDS: Isosorbide Mononitrate 60 MG ER.TAB PO SCH (08:46)
[2023-06-20 09:16] LABS: #Eosinphils 0.2 thou/uL (0.0-0.7); #Monocytes 0.4 thou/uL (0.11-0.59); #Neutrophils 2.6 thou/uL (1.40-6.50); %Basophils 0.5 % (0.0-1.0); %Eosinophils 5.5 % (0.0-10.0); %Monocytes 9.5 % (0.0-10.0); Hemoglobin 14.5 g/dL (14.0-18.0); Mean Corpuscular Hemoglobin 30.8 pg (27.0-31.0); Mean Corpuscular Volume 93.4 fl (78.0-98.0); Mean Platelet Volume 12.7 fL (7.4-10.4); RBC Distribution Width 15.2 % (11.5-14.5); Red Blood Cell (RBC) Count 4.71 mill/uL (4.70-6.10)
[2023-06-20 09:18] LABS: Platelet Count 78 10x3/uL (130-400)
[2023-06-20] MEDS ORDERED: Acetaminophen 500 MG TAB PO PRN (10:14)
[2023-06-20] MEDS: Acetaminophen 500 MG TAB PO SCH (10:43)
[2023-06-20 16:48] VITALS: BP 110/56; TEMP 98.1
[2023-06-20] MEDS ORDERED: Apixaban 5 MG TAB PO SCH (21:00)
== END 2023-06-20 17:29 | disposition home or self-care (01) | DRG 683 ==
LOC: ERS 16:28 → INTOOBSV 18:51 → 2SW 18:51 → OBSVTOIN 23:13
PROVIDERS: ADMIT Emergency Medicine; ATTEND Family Medicine
PROC: 4A00X4Z Measurement of Central Nervous Electrical Activity, External Approach (ICD-10-PCS; principal; 2023-06-18)
DX: N17.9 Acute kidney failure, unspecified (principal); I13.0 Hypertensive heart and chronic kidney disease with heart failure and stage 1 through stage 4 chronic kidney disease, or unspecified chronic kidney disease; I50.32 Chronic diastolic (congestive) heart failure; R47.01 Aphasia; G93.89 Other specified disorders of brain; N18.31 Chronic kidney disease, stage 3a; E11.22 Type 2 diabetes mellitus with diabetic chronic kidney disease; E11.65 Type 2 diabetes mellitus with hyperglycemia; I48.0 Paroxysmal atrial fibrillation; I25.10 Atherosclerotic heart disease of native coronary artery without angina pectoris; E78.5 Hyperlipidemia, unspecified; E11.40 Type 2 diabetes mellitus with diabetic neuropathy, unspecified; D63.1 Anemia in chronic kidney disease; E03.9 Hypothyroidism, unspecified; Z95.1 Presence of aortocoronary bypass graft; Z90.49 Acquired absence of other specified parts of digestive tract; Z98.890 Other specified postprocedural states; Z96.641 Presence of right artificial hip joint; Z82.49 Family history of ischemic heart disease and other diseases of the circulatory system; Z87.891 Personal history of nicotine dependence; Z79.01 Long term (current) use of anticoagulants; Z91.048 Other nonmedicinal substance allergy status; R56.9 Unspecified convulsions; N40.0 Benign prostatic hyperplasia without lower urinary tract symptoms; I25.2 Old myocardial infarction; K21.9 Gastro-esophageal reflux disease without esophagitis; D69.6 Thrombocytopenia, unspecified
CPT/HCPCS: 36415; 36416; 70450; 71045; 80048; 80053; 80061; 80306; 81001; 82550; 83036; 83605; 83735; 83880; 84146; 84439; 84443; 84481; 84484; 85025; 93005; 93010; 93880; 95711; 95819; 96361; 96365; 96375; J1815; J1953; J2060; J2270; J2272; J2405; J7050

== ENCOUNTER 2024-02-09 04:01 | Emergency (ER) | payer MEDICARE, OTHER ==
[2024-02-09] MEDS ORDERED: Acetaminophen 500 MG TAB ONE (05:14)
[2024-02-09] MEDS ORDERED: Morphine 4 MG/ML VIAL ONE (05:16)
[2024-02-09 05:40] LABS: #Basophils Less than 0.03 10x3/uL (0.0-0.2); %Basophils 0.2 % (0.0-1.0); %Eosinophils 1.2 % (0.0-10.0); %Lymphocytes 4.6 % (21.0-51.0); %Monocytes 6.1 % (0.0-10.0); %Neutrophils 87.4 % (42.0-75.0); Hematocrit 44.5 % (42.0-52.0); Hemoglobin 14.8 g/dL (14.0-18.0); Mean Corpuscular HGB CONC 33.3 g/dL (32.0-36.0); Mean Corpuscular Hemoglobin 31.2 pg (27.0-31.0); Mean Corpuscular Volume 93.7 fL (78.0-98.0); Mean Platelet Volume 13.2 fL (7.4-10.4); Platelet Count 87 10x3/uL (130-400); RBC Distribution Width 16.1 % (11.5-14.5); Red Blood Cell (RBC) Count 4.75 mill/uL (4.70-6.10)
[2024-02-09 05:58] LABS: ALT (SGPT) 24 U/L (8-55); AST (SGOT) 25 U/L (5-34); Albumin 3.8 g/dL (3.4-4.8); Alkaline Phosphatase 74 U/L (40-110); Anion Gap 18 mmol/L (10-20); BUN (Urea Nitrogen) 22 mg/dL (8.4-25.7); Bilirubin, Total 1.8 mg/dL (0.2-1.2); Calc. Creatinine Clearance 0 mL/min (70-130); Carbon Dioxide 20 mmol/L (23-31); Chloride 104 mmol/L (98-107); Estimated GFR 44; Globulin 3.3 g/dL (2.4-3.5); Glucose 180 mg/dL (83-110); Protein, Total 7.1 g/dL (5.8-8.1); Sodium 138 mmol/L (136-145)
[2024-02-09 06:01] LABS: Troponin I Less than 0.010 ng/mL (< 0.028)
== END 2024-02-09 07:01 | disposition home or self-care (01) ==
LOC: ERS 04:01
DX: R50.9 Fever, unspecified (principal); R05.9 Cough, unspecified; E11.40 Type 2 diabetes mellitus with diabetic neuropathy, unspecified; I13.0 Hypertensive heart and chronic kidney disease with heart failure and stage 1 through stage 4 chronic kidney disease, or unspecified chronic kidney disease; I50.9 Heart failure, unspecified; N18.9 Chronic kidney disease, unspecified; E11.22 Type 2 diabetes mellitus with diabetic chronic kidney disease; Z87.891 Personal history of nicotine dependence
CPT/HCPCS: 71045; 80053; 83605; 83880; 84484; 85025; 87428; 93005; J2272; 96374

== ENCOUNTER 2024-05-04 03:35 | Inpatient (IN) | payer MEDICARE, OTHER ==
[2024-05-04] MEDS ORDERED: Morphine 4 MG/ML VIAL ONE ×2 (03:55→04:58)
[2024-05-04 04:14] LABS: #Basophils Less than 0.03 10x3/uL (0.0-0.2); #Eosinophils Less than 0.03 10x3/uL (0.0-0.7); %Basophils 0.2 % (0.0-1.0); %Lymphocytes 7.5 % (21.0-51.0); %Monocytes 3.4 % (0.0-10.0); %Neutrophils 87.8 % (42.0-75.0); Hematocrit 44.5 % (42.0-52.0); Hemoglobin 15.1 g/dL (14.0-18.0); Mean Corpuscular HGB CONC 33.9 g/dL (32.0-36.0); Mean Corpuscular Hemoglobin 30.6 pg (27.0-31.0); Mean Corpuscular Volume 90.1 fL (78.0-98.0); Mean Platelet Volume 13.1 fL (7.4-10.4); Platelet Count 92 10x3/uL (130-400); RBC Distribution Width 14.9 % (11.5-14.5); Red Blood Cell (RBC) Count 4.94 mill/uL (4.70-6.10)
[2024-05-04 04:50] LABS: Troponin I 0.158 ng/mL (< 0.028)
[2024-05-04 04:58] LABS: ALT (SGPT) 30 U/L (8-55); AST (SGOT) 35 U/L (5-34); Albumin 3.7 g/dL (3.4-4.8); Alkaline Phosphatase 76 U/L (40-110); Anion Gap 17 mmol/L (10-20); BUN (Urea Nitrogen) 30 mg/dL (8.4-25.7); Bilirubin, Total 1.4 mg/dL (0.2-1.2); Calc. Creatinine Clearance 0 mL/min (70-130); Calcium 9.2 mg/dL (7.8-10.44); Carbon Dioxide 17 mmol/L (23-31); Chloride 107 mmol/L (98-107); Estimated GFR 52; Glucose 215 mg/dL (83-110); Potassium 4.7 mmol/L (3.5-5.1); Protein, Total 7.7 g/dL (5.8-8.1); Sodium 136 mmol/L (136-145)
[2024-05-04] MEDS ORDERED: Enoxaparin 100 MG (1 mL) SYRINGE ONE (05:13)
[2024-05-04] MEDS ORDERED: Ondansetron ODT 4 MG TAB SL PRN (06:15)
[2024-05-04 07:02] LABS: Troponin I 0.152 ng/mL (< 0.028)
[2024-05-04] MEDS ORDERED: traMADol HCl 50 MG TAB PO PRN (08:50)
[2024-05-04] MEDS ORDERED: Acetaminophen 325 MG TAB PO PRN (08:50)
[2024-05-04] MEDS ORDERED: Senokot S 8.6-50 MG TAB PO PRN (08:50)
[2024-05-04] MEDS ORDERED: Aspirin 325 MG TAB PO SCH (09:00)
[2024-05-04] MEDS ORDERED: Nitroglycerin 0.1mg/Hour PATCH TD SCH (09:00)
[2024-05-04] MEDS: Nitroglycerin 0.4 MG TAB (25 Tab Bottle) SL PRN (09:09)
[2024-05-04] MEDS: Morphine 2 MG/ML VIAL SLOW IVP PRN (09:25)
[2024-05-04] MEDS: Ondansetron PF 4 MG/2 ML Vial IVP PRN (09:26)
[2024-05-04] MEDS: Isosorbide Mononitrate 30 MG ER.TAB PO SCH (09:26)
[2024-05-04] MEDS: Ranolazine ER 500 MG TAB PO SCH ×2 (09:26→21:10)
[2024-05-04] MEDS: Carvedilol 6.25 MG TAB PO SCH ×3 (09:26→21:08)
[2024-05-04] MEDS: Furosemide 40 MG (4 mL) VIAL SLOW IVP SCH (10:02)
[2024-05-04 10:03] LABS: Troponin I 0.137 ng/mL (< 0.028)
[2024-05-04] MEDS ORDERED: Glucagon 1 MG/ML KIT IM PRN (10:35)
[2024-05-04] MEDS ORDERED: Dextrose 5% in Water 1,000 ML IV PRN (10:35)
[2024-05-04] MEDS ORDERED: Dextrose 50% Abboject 50 ML SYRINGE SLOW IVP PRN (10:35)
[2024-05-04 11:06] VITALS: BMI 25.7
[2024-05-04] MEDS: Insulin Lispro 100 UNIT/ML 10 ML VIAL SC PRN (12:17)
[2024-05-04] MEDS ORDERED: Transdermal Patch Removal TOP SCH (21:00)
[2024-05-04] MEDS ORDERED: Ranolazine ER 500 MG TAB PO SCH (21:00)
[2024-05-04] MEDS ORDERED: DOXEPIN HCL 3 MG PO SCH (21:00)
[2024-05-04] MEDS ORDERED: levETIRAcetam 500 MG TAB PO SCH (21:00)
[2024-05-04] MEDS: Insulin Glargine 30 UNITS/0.3 ML VIAL SC SCH (21:07)
[2024-05-04] MEDS: Gabapentin 300 MG CAP PO SCH (21:07)
[2024-05-05] MEDS: HYDROcodone/Acetaminophen 5/325 mg Tablet PO PRN (01:26)
[2024-05-05 04:17] LABS: #Basophils Less than 0.03 10x3/uL (0.0-0.2); %Basophils 0.3 % (0.0-1.0); %Eosinophils 0.5 % (0.0-10.0); %Lymphocytes 10.6 % (21.0-51.0); %Monocytes 7.3 % (0.0-10.0); %Neutrophils 80.6 % (42.0-75.0); Hematocrit 44.6 % (42.0-52.0); Hemoglobin 14.8 g/dL (14.0-18.0); Mean Corpuscular HGB CONC 33.2 g/dL (32.0-36.0); Mean Corpuscular Hemoglobin 30.8 pg (27.0-31.0); Mean Corpuscular Volume 92.7 fL (78.0-98.0); Mean Platelet Volume 13.1 fL (7.4-10.4); Platelet Count 107 10x3/uL (130-400); RBC Distribution Width 15.2 % (11.5-14.5); Red Blood Cell (RBC) Count 4.81 mill/uL (4.70-6.10)
[2024-05-05 04:32] LABS: Anion Gap 15 mmol/L (10-20); BUN (Urea Nitrogen) 36 mg/dL (8.4-25.7); Calc. Creatinine Clearance 61 mL/min (70-130); Calcium 9.1 mg/dL (7.8-10.44); Carbon Dioxide 20 mmol/L (23-31); Chloride 108 mmol/L (98-107); Estimated GFR 57; Glucose 155 mg/dL (83-110); Magnesium 2.4 mg/dL (1.6-2.6); Potassium 4.4 mmol/L (3.5-5.1); Sodium 139 mmol/L (136-145)
[2024-05-05] MEDS: Levothyroxine Sodium 100 MCG TAB PO SCH (06:14)
[2024-05-05] MEDS: Ezetimibe 10 MG TAB PO SCH (08:48)
[2024-05-05] MEDS: Aripiprazole 10 MG TAB PO SCH (08:48)
[2024-05-05] MEDS: Isosorbide Mononitrate 30 MG ER.TAB PO SCH (08:49)
[2024-05-05] MEDS: Empagliflozin 10 MG TAB PO SCH (08:50)
[2024-05-05] MEDS: Furosemide 40 MG (4 mL) VIAL SLOW IVP SCH (08:51)
[2024-05-05] MEDS: Enoxaparin 40 MG (0.4 mL) SYRINGE SC SCH (08:51)
[2024-05-05] MEDS: Rosuvastatin 20 MG TAB PO SCH (08:51)
[2024-05-05] MEDS: Clopidogrel Bisulfate 75 MG TAB PO SCH (08:52)
[2024-05-05] MEDS: Pantoprazole 40 MG DR.TAB PO SCH (08:52)
[2024-05-05] MEDS: Amiodarone 200 MG TAB PO SCH (11:43)
[2024-05-05] MEDS: Cyclobenzaprine 10 MG TAB PO SCH (14:46)
[2024-05-05] MEDS ORDERED: Polyethylene Glycol 3350 17 GM Packet PO PRN (16:14)
[2024-05-05] MEDS: Sacubitril 24MG/Valsartan 26 MG TAB PO SCH (20:12)
[2024-05-05] MEDS: Senokot S 8.6-50 MG TAB PO SCH (20:14)
[2024-05-06 04:51] LABS: Anion Gap 16 mmol/L (10-20); BUN (Urea Nitrogen) 54 mg/dL (8.4-25.7); Calc. Creatinine Clearance 40 mL/min (70-130); Calcium 8.6 mg/dL (7.8-10.44); Carbon Dioxide 25 mmol/L (23-31); Chloride 106 mmol/L (98-107); Estimated GFR 34; Glucose 192 mg/dL (83-110); Magnesium 2.6 mg/dL (1.6-2.6); Potassium 4.7 mmol/L (3.5-5.1); Sodium 142 mmol/L (136-145)
[2024-05-06] MEDS: Amiodarone 200 MG TAB PO SCH (08:52)
[2024-05-06] MEDS: Sodium Chloride 0.9% 250 ML 250 ML IV SCH (10:45)
[2024-05-06] MEDS: Cyclobenzaprine 10 MG TAB PO PRN (11:52)
[2024-05-06 12:19] LABS: Bacteria/HPF None Seen HPF (None Seen); Bilirubin Negative (Negative); Blood, Urine Negative (Negative); Clarity Clear (Clear); Glucose, Urine (Dipstick) 500 mg/dL (Negative); Ketone, Urine Negative (Negative); Leukocyte Negative Leu/uL (Negative); Nitrite Negative (Negative); Protein, Urine (Dipstick) Negative (Neg-Trace); RBC/HPF None Seen HPF (0-3); Specific Gravity, Urine 1.007 (1.002-1.036); Squamous Epithelial None Seen HPF (0-3); Urobilinogen Normal mg/dL (Less than 2); WBC/HPF 0-3 HPF (0-3)
[2024-05-06] MEDS: Gabapentin 300 MG CAP PO SCH (14:23)
[2024-05-06] MEDS ORDERED: Carvedilol 3.125 MG TAB PO SCH (17:00)
[2024-05-06 18:21] LABS: Anion Gap 17 mmol/L (10-20); BUN (Urea Nitrogen) 54 mg/dL (8.4-25.7); Calc. Creatinine Clearance 40 mL/min (70-130); Calcium 9.2 mg/dL (7.8-10.44); Carbon Dioxide 22 mmol/L (23-31); Chloride 106 mmol/L (98-107); Estimated GFR 34; Glucose 114 mg/dL (83-110); Potassium 4.5 mmol/L (3.5-5.1); Sodium 140 mmol/L (136-145)
[2024-05-07 04:00] LABS: #Basophils 0.03 10x3/uL (0.0-0.2); %Basophils 0.5 % (0.0-1.0); %Eosinophils 2.9 % (0.0-10.0); %Lymphocytes 9.7 % (21.0-51.0); %Monocytes 10.6 % (0.0-10.0); %Neutrophils 75.7 % (42.0-75.0); Hematocrit 45.8 % (42.0-52.0); Mean Corpuscular HGB CONC 32.8 g/dL (32.0-36.0); Mean Corpuscular Hemoglobin 30.7 pg (27.0-31.0); Mean Corpuscular Volume 93.9 fL (78.0-98.0); Mean Platelet Volume 12.6 fL (7.4-10.4); Platelet Count 102 10x3/uL (130-400); Red Blood Cell (RBC) Count 4.88 mill/uL (4.70-6.10)
[2024-05-07 04:35] LABS: BUN (Urea Nitrogen) 53 mg/dL (8.4-25.7); Calc. Creatinine Clearance 43 mL/min (70-130); Calcium 8.8 mg/dL (7.8-10.44); Carbon Dioxide 24 mmol/L (23-31); Estimated GFR 37; Glucose 151 mg/dL (83-110); Magnesium 2.6 mg/dL (1.6-2.6)
[2024-05-07 05:34] LABS: Anion Gap 15 mmol/L (10-20); Chloride 107 mmol/L (98-107); Potassium 4.2 mmol/L (3.5-5.1); Sodium 140 mmol/L (136-145)
[2024-05-07] MEDS: Carvedilol 3.125 MG TAB PO SCH (09:00)
[2024-05-07] MEDS: Polyethylene Glycol 3350 17 GM Packet PO SCH (20:30)
[2024-05-08 04:27] LABS: Anion Gap 11 mmol/L (10-20); BUN (Urea Nitrogen) 43 mg/dL (8.4-25.7); Calc. Creatinine Clearance 50 mL/min (70-130); Carbon Dioxide 26 mmol/L (23-31); Chloride 108 mmol/L (98-107); Estimated GFR 44; Glucose 145 mg/dL (83-110); Potassium 4.3 mmol/L (3.5-5.1); Sodium 141 mmol/L (136-145)
[2024-05-08 04:33] LABS: #Basophils 0.03 10x3/uL (0.0-0.2); %Basophils 0.5 % (0.0-1.0); %Eosinophils 3.9 % (0.0-10.0); %Lymphocytes 13.9 % (21.0-51.0); %Monocytes 11.2 % (0.0-10.0); %Neutrophils 69.8 % (42.0-75.0); Hematocrit 44.2 % (42.0-52.0); Hemoglobin 14.9 g/dL (14.0-18.0); Mean Corpuscular HGB CONC 33.7 g/dL (32.0-36.0); Mean Corpuscular Hemoglobin 30.8 pg (27.0-31.0); Mean Corpuscular Volume 91.5 fL (78.0-98.0); Mean Platelet Volume 12.7 fL (7.4-10.4); Platelet Count 97 10x3/uL (130-400); RBC Distribution Width 14.7 % (11.5-14.5); Red Blood Cell (RBC) Count 4.83 mill/uL (4.70-6.10)
[2024-05-08] MEDS: Empagliflozin 10 MG TAB PO SCH (08:54)
[2024-05-08] MEDS: Furosemide 20 MG TAB PO SCH (08:55)
[2024-05-08] MEDS: HYDROcodone/Acetaminophen 5/325 mg Tablet PO SCH (08:55)
[2024-05-08 11:40] VITALS: BP 123/72; TEMP 97.5
== END 2024-05-08 13:20 | DRG 280 ==
LOC: ERS 03:35 → PCU 06:10
PROVIDERS: ADMIT Student in an Organized Health Care Education/Training Program; ATTEND Internal Medicine
DX: I13.0 Hypertensive heart and chronic kidney disease with heart failure and stage 1 through stage 4 chronic kidney disease, or unspecified chronic kidney disease (principal); I50.43 Acute on chronic combined systolic (congestive) and diastolic (congestive) heart failure; I21.A1 Myocardial infarction type 2; N17.9 Acute kidney failure, unspecified; E11.22 Type 2 diabetes mellitus with diabetic chronic kidney disease; N18.30 Chronic kidney disease, stage 3 unspecified; D69.6 Thrombocytopenia, unspecified; E03.9 Hypothyroidism, unspecified; M25.551 Pain in right hip; E78.5 Hyperlipidemia, unspecified; E11.42 Type 2 diabetes mellitus with diabetic polyneuropathy; F41.9 Anxiety disorder, unspecified; I25.10 Atherosclerotic heart disease of native coronary artery without angina pectoris; G89.29 Other chronic pain; M54.9 Dorsalgia, unspecified; I16.0 Hypertensive urgency; N40.0 Benign prostatic hyperplasia without lower urinary tract symptoms; I48.0 Paroxysmal atrial fibrillation; R00.1 Bradycardia, unspecified; Z91.048 Other nonmedicinal substance allergy status; Z91.018 Allergy to other foods; Z95.5 Presence of coronary angioplasty implant and graft; Z95.1 Presence of aortocoronary bypass graft; Z90.49 Acquired absence of other specified parts of digestive tract; Z87.891 Personal history of nicotine dependence; Z79.82 Long term (current) use of aspirin; Z79.899 Other long term (current) drug therapy; Z79.02 Long term (current) use of antithrombotics/antiplatelets; Z79.84 Long term (current) use of oral hypoglycemic drugs; Z79.890 Hormone replacement therapy
CPT/HCPCS: 36415; 36416; 71045; 80048; 80053; 81001; 83735; 83880; 84443; 84484; 85025; 93005; 93306; 93798; J1650; J1815; J1940; J2270; J2272; J2405

== ENCOUNTER 2024-12-15 19:27 | Inpatient (IN) | payer MEDICARE, OTHER ==
[2024-12-15] MEDS ORDERED: Nitroglycerin 0.4 MG TAB (25 Tab Bottle) SL PRN (23:31)
[2024-12-16] MEDS ORDERED: Dextrose 50% Abboject 50 ML SYRINGE SLOW IVP PRN (00:59)
[2024-12-16] MEDS ORDERED: Glucagon 1 MG/ML KIT IM PRN (00:59)
[2024-12-16] MEDS ORDERED: Ondansetron PF 4 MG/2 ML Vial IVP PRN (01:01)
[2024-12-16] MEDS ORDERED: Calcium Carbonate 500 MG ChewTAB PO PRN (01:01)
[2024-12-16] MEDS: Rabies Vaccine Human 2.5 UNITS VIAL IM ONE (02:23)
[2024-12-16] MEDS: Rabies Immune Globulin/PF 300 UNITS/ML VIAL IM SCH (02:30)
[2024-12-16] MEDS: Lidocaine 2% Viscous Solution 10 ML, Aluminum & Magnesium Hydroxide 30 ML SSW SCH (02:31)
[2024-12-16] MEDS: Acetaminophen 325 MG TAB PO PRN (04:26)
[2024-12-16 04:48] LABS: #Basophils Less than 0.03 10x3/uL (0.0-0.2); #Eosinophils 0.19 10x3/uL (0.0-0.7); #Monocytes 0.47 10x3/uL (0.11-0.59); #Neutrophils 2.63 10x3/uL (1.40-6.50); %Basophils 0.5 % (0.0-1.0); %Eosinophils 4.4 % (0.0-10.0); %Lymphocytes 23.2 % (21.0-51.0); %Monocytes 10.8 % (0.0-10.0); %Neutrophils 60.2 % (42.0-75.0); Hematocrit 39.4 % (42.0-52.0); Hemoglobin 13.5 g/dL (14.0-18.0); Mean Corpuscular Hemoglobin 30.9 pg (27.0-31.0); Mean Corpuscular Volume 90.2 fL (78.0-98.0); Platelet Count 98 10x3/uL (130-400); Red Blood Cell (RBC) Count 4.37 mill/uL (4.70-6.10); White Blood Cell (WBC) Count 4.36 10x3/uL (4.8-10.8)
[2024-12-16 05:10] LABS: ALT (SGPT) 46 U/L (Less than 45); AST (SGOT) 41 U/L (11-34); Albumin 3.8 g/dL (3.1-4.5); Alkaline Phosphatase 78 U/L (40-110); Anion Gap 17 mmol/L (10-20); BUN (Urea Nitrogen) 33 mg/dL (8.4-25.7); Bilirubin, Total 1.5 mg/dL (0.3-1.2); Calc. Creatinine Clearance 36 mL/min (70-130); Calcium 9.1 mg/dL (7.8-10.44); Carbon Dioxide 26 mmol/L (23-31); Chloride 101 mmol/L (98-107); Globulin 2.8 g/dL (2.4-3.5); Glucose 102 mg/dL (83-110); Lipase 19 U/L (8-78); Magnesium 1.9 mg/dL (1.6-2.6); Potassium 3.5 mmol/L (3.5-5.1); Sodium 140 mmol/L (136-145)
[2024-12-16] MEDS: Amiodarone 200 MG TAB PO SCH (08:42)
[2024-12-16] MEDS: Carvedilol 6.25 MG TAB PO SCH (08:42)
[2024-12-16] MEDS: Pantoprazole 40 MG DR.TAB PO SCH (08:46)
[2024-12-16] MEDS: Isosorbide Mononitrate 30 MG ER.TAB.S PO SCH (08:46)
[2024-12-16] MEDS: Gabapentin 300 MG CAP PO SCH (08:46)
[2024-12-16] MEDS: Aspirin Chewable 81 MG TAB PO SCH (08:47)
[2024-12-16] MEDS: HYDROcodone/Acetaminophen 5/325 mg Tablet PO PRN (17:31)
[2024-12-16] MEDS: Insulin Glargine 30 UNITS/0.3 ML VIAL SC SCH (21:02)
[2024-12-16] MEDS: Heparin 5,000 UNITS/ML VIAL SC SCH (21:03)
[2024-12-17 04:44] LABS: Anion Gap 15 mmol/L (10-20); BUN (Urea Nitrogen) 32 mg/dL (8.4-25.7); Calc. Creatinine Clearance 40 mL/min (70-130); Calcium 9.0 mg/dL (7.8-10.44); Carbon Dioxide 28 mmol/L (23-31); Chloride 102 mmol/L (98-107); Glucose 131 mg/dL (83-110); Potassium 3.5 mmol/L (3.5-5.1); Sodium 141 mmol/L (136-145)
[2024-12-17 04:45] LABS: #Basophils 0.03 10x3/uL (0.0-0.2); #Eosinophils 0.14 10x3/uL (0.0-0.7); #Monocytes 0.41 10x3/uL (0.11-0.59); #Neutrophils 2.32 10x3/uL (1.40-6.50); %Basophils 0.8 % (0.0-1.0); %Eosinophils 3.7 % (0.0-10.0); %Lymphocytes 22.0 % (21.0-51.0); %Monocytes 10.9 % (0.0-10.0); %Neutrophils 61.5 % (42.0-75.0); Hematocrit 39.7 % (42.0-52.0); Hemoglobin 13.5 g/dL (14.0-18.0); Mean Corpuscular Hemoglobin 30.8 pg (27.0-31.0); Mean Corpuscular Volume 90.6 fL (78.0-98.0); Platelet Count 91 10x3/uL (130-400); Red Blood Cell (RBC) Count 4.38 mill/uL (4.70-6.10); White Blood Cell (WBC) Count 3.77 10x3/uL (4.8-10.8)
[2024-12-17] MEDS: levETIRAcetam 500 MG TAB PO SCH (10:14)
[2024-12-17] MEDS: Amiodarone 200 MG TAB PO SCH (10:16)
[2024-12-17 11:34] VITALS: BP 114/62; TEMP 98.4
== END 2024-12-17 13:32 | disposition home or self-care (01) | DRG 303 ==
LOC: 2NO 23:18 → OBSVTOIN 12-16 00:44
PROVIDERS: ADMIT Internal Medicine; ATTEND Internal Medicine
PROC: 3E0234Z Introduction of Serum, Toxoid and Vaccine into Muscle, Percutaneous Approach (ICD-10-PCS; principal; 2024-12-16)
DX: I25.10 Atherosclerotic heart disease of native coronary artery without angina pectoris (principal); I50.42 Chronic combined systolic (congestive) and diastolic (congestive) heart failure; N17.9 Acute kidney failure, unspecified; R07.9 Chest pain, unspecified; I48.91 Unspecified atrial fibrillation; E11.40 Type 2 diabetes mellitus with diabetic neuropathy, unspecified; Z98.890 Other specified postprocedural states; Z91.018 Allergy to other foods; Z91.048 Other nonmedicinal substance allergy status; Z95.1 Presence of aortocoronary bypass graft; N18.30 Chronic kidney disease, stage 3 unspecified; T14.8XXA Other injury of unspecified body region, initial encounter; I25.5 Ischemic cardiomyopathy; Z79.899 Other long term (current) drug therapy; Z79.82 Long term (current) use of aspirin; Z79.890 Hormone replacement therapy
CPT/HCPCS: 36415; 36416; 78452; 80048; 80053; 83036; 83690; 83735; 83880; 85025; 90375; 90675; 93017; 93306; 94760; A9502; G0378; J1644; J1815; J2785

== ENCOUNTER → 2024-12-19 | Day surgery (SDC) | payer MEDICARE, OTHER ==
[~2024-12-19] MED LIST changes: -Iopamidol-370 76% 500 ML 1 ML ONE; +Rabies Vaccine Human 2.5 UNITS VIAL ONE
== END ==
LOC: ER/OP 15:10
PROVIDERS: ATTEND Emergency Medicine
DX: Z29.14 Encounter for prophylactic rabies immune globulin (principal)
CPT/HCPCS: 90675; 99281

== ENCOUNTER 2025-01-11 17:45 | Inpatient (IN) | payer MEDICARE, OTHER ==
[~2025-01-11 17:45] MED LIST changes: +Iopamidol-370 76% 500 ML MDV (1 ML CHARGE) ONE; -Rabies Vaccine Human 2.5 UNITS VIAL ONE
[2025-01-11] MEDS ORDERED: Acetaminophen 500 MG TAB ONE (19:12)
[2025-01-11 19:16] LABS: #Basophils Less than 0.03 10x3/uL (0.0-0.2); #Eosinophils 0.06 10x3/uL (0.0-0.7); #Monocytes 0.55 10x3/uL (0.11-0.59); #Neutrophils 5.27 10x3/uL (1.40-6.50); %Basophils 0.3 % (0.0-1.0); %Eosinophils 0.9 % (0.0-10.0); %Lymphocytes 7.6 % (21.0-51.0); %Monocytes 8.5 % (0.0-10.0); %Neutrophils 81.8 % (42.0-75.0); Hematocrit 34.4 % (42.0-52.0); Hemoglobin 11.9 g/dL (14.0-18.0); Mean Corpuscular Hemoglobin 30.7 pg (27.0-31.0); Mean Corpuscular Volume 88.9 fL (78.0-98.0); Platelet Count 73 10x3/uL (130-400); Red Blood Cell (RBC) Count 3.87 mill/uL (4.70-6.10); White Blood Cell (WBC) Count 6.45 10x3/uL (4.8-10.8)
[2025-01-11 19:24] LABS: Actual Bicarbonate (HCO3v) 26.5 mEq/L (22-28); Base Excess 1.3 mEq/L (-2.0 to +3.0); Calcium, Ionized (venous) 1.08 mmol/L (1.16-1.32); Chloride (VBG) 101 mmol/L (98-106); Hematocrit-VBG 40 % (42.0-52.0); Hemoglobin (Hb) 13.5 g/dL (12.6-17.4); Potassium (VBG) 2.78 mmol/L (3.70-5.30); Sodium 139 mmol/L (133-146)
[2025-01-11 19:26] LABS: Bacteria/HPF None Seen HPF (None Seen); CAUTI Indications for Culture Pelvic or flank pain; Glucose, Urine (Dipstick) Greater than 1000 mg/dL (Negative); Leukocyte Negative Leu/uL (Negative); Protein, Urine (Dipstick) Negative (Neg-Trace); RBC/HPF None Seen HPF (0-3); Specific Gravity, Urine 1.006 (1.002-1.036); WBC/HPF 0-3 HPF (0-3)
[2025-01-11 19:27] LABS: ALT (SGPT) 50 U/L (Less than 45); AST (SGOT) 38 U/L (11-34); Albumin 3.5 g/dL (3.1-4.5); Alkaline Phosphatase 59 U/L (40-110); Anion Gap 15 mmol/L (10-20); BUN (Urea Nitrogen) 26 mg/dL (8.4-25.7); Bilirubin, Total 1.1 mg/dL (0.3-1.2); Calc. Creatinine Clearance 0 mL/min (70-130); Calcium 8.8 mg/dL (7.8-10.44); Carbon Dioxide 26 mmol/L (23-31); Chloride 102 mmol/L (98-107); Globulin 2.8 g/dL (2.4-3.5); Glucose 119 mg/dL (83-110); Potassium 2.7 mmol/L (3.5-5.1); Sodium 140 mmol/L (136-145)
[2025-01-11 19:29] LABS: Urine Culture Reflex No No
[2025-01-11] MEDS ORDERED: Potassium Chloride 20 MEQ (100 mL) BAG ONE (20:22)
[2025-01-11] MEDS ORDERED: Boostrix 0.5 ML (Tdap) VIAL (>/=7 yrs of age) ONE (21:30)
[2025-01-11] MEDS ORDERED: HYDROcodone/Acetaminophen 5/325 mg Tablet ONE (21:30)
[2025-01-11 23:01] LABS: Magnesium 1.6 mg/dL (1.6-2.6)
[2025-01-12] MEDS ORDERED: Ondansetron PF 4 MG/2 ML Vial IVP PRN (00:22)
[2025-01-12] MEDS ORDERED: Magnesium 2 GM/50 ML BAG (IN WATER) ONE (00:24)
[2025-01-12 01:37] VITALS: BMI 25.4
[2025-01-12 05:48] LABS: #Basophils Less than 0.03 10x3/uL (0.0-0.2); #Eosinophils 0.10 10x3/uL (0.0-0.7); #Monocytes 0.43 10x3/uL (0.11-0.59); #Neutrophils 2.86 10x3/uL (1.40-6.50); %Basophils 0.2 % (0.0-1.0); %Eosinophils 2.4 % (0.0-10.0); %Lymphocytes 18.1 % (21.0-51.0); %Monocytes 10.2 % (0.0-10.0); %Neutrophils 68.1 % (42.0-75.0); Hematocrit 34.0 % (42.0-52.0); Hemoglobin 11.3 g/dL (14.0-18.0); Mean Corpuscular Hemoglobin 30.7 pg (27.0-31.0); Mean Corpuscular Volume 92.4 fL (78.0-98.0); Platelet Count 52 10x3/uL (130-400); Red Blood Cell (RBC) Count 3.68 mill/uL (4.70-6.10); White Blood Cell (WBC) Count 4.20 10x3/uL (4.8-10.8)
[2025-01-12 06:01] LABS: Anion Gap 14 mmol/L (10-20); BUN (Urea Nitrogen) 24 mg/dL (8.4-25.7); Calc. Creatinine Clearance 42 mL/min (70-130); Calcium 8.4 mg/dL (7.8-10.44); Carbon Dioxide 22 mmol/L (23-31); Chloride 108 mmol/L (98-107); Glucose 92 mg/dL (83-110); Magnesium 2.3 mg/dL (1.6-2.6); Potassium 3.0 mmol/L (3.5-5.1); Sodium 141 mmol/L (136-145)
[2025-01-12] MEDS: Aspirin Chewable 81 MG TAB PO SCH (08:51)
[2025-01-12] MEDS: Gabapentin 300 MG CAP PO SCH (08:51)
[2025-01-12] MEDS: levETIRAcetam 500 MG TAB PO SCH (08:52)
[2025-01-12] MEDS ORDERED: Glucagon 1 MG/ML KIT IM PRN (10:00)
[2025-01-12] MEDS ORDERED: Dextrose 50% Abboject 50 ML SYRINGE SLOW IVP PRN (10:00)
[2025-01-12] MEDS: Pantoprazole 40 MG DR.TAB PO SCH (10:11)
[2025-01-12] MEDS ORDERED: Electrolyte Replacement Protocol 1 EACH FS SCH (10:15)
[2025-01-12] MEDS: Acetaminophen 325 MG TAB PO PRN (18:20)
[2025-01-12] MEDS: Insulin Glargine 30 UNITS/0.3 ML VIAL SC SCH (21:16)
[2025-01-12] MEDS: Transdermal Patch Removal TOP SCH (21:17)
[2025-01-13 05:15] LABS: #Basophils Less than 0.03 10x3/uL (0.0-0.2); #Eosinophils 0.15 10x3/uL (0.0-0.7); #Monocytes 0.54 10x3/uL (0.11-0.59); #Neutrophils 4.67 10x3/uL (1.40-6.50); %Basophils 0.2 % (0.0-1.0); %Eosinophils 2.6 % (0.0-10.0); %Lymphocytes 7.8 % (21.0-51.0); %Monocytes 9.2 % (0.0-10.0); %Neutrophils 79.5 % (42.0-75.0); Hematocrit 33.7 % (42.0-52.0); Hemoglobin 11.4 g/dL (14.0-18.0); Mean Corpuscular Hemoglobin 30.8 pg (27.0-31.0); Mean Corpuscular Volume 91.1 fL (78.0-98.0); Platelet Count 66 10x3/uL (130-400); Red Blood Cell (RBC) Count 3.70 mill/uL (4.70-6.10); White Blood Cell (WBC) Count 5.87 10x3/uL (4.8-10.8)
[2025-01-13 05:39] LABS: ALT (SGPT) 48 U/L (Less than 45); AST (SGOT) 56 U/L (11-34); Albumin 3.0 g/dL (3.1-4.5); Alkaline Phosphatase 73 U/L (40-110); Anion Gap 15 mmol/L (10-20); BUN (Urea Nitrogen) 22 mg/dL (8.4-25.7); Bilirubin, Total 1.4 mg/dL (0.3-1.2); Calc. Creatinine Clearance 45 mL/min (70-130); Calcium 8.4 mg/dL (7.8-10.44); Carbon Dioxide 23 mmol/L (23-31); Chloride 107 mmol/L (98-107); Globulin 2.7 g/dL (2.4-3.5); Glucose 95 mg/dL (83-110); Magnesium 2.0 mg/dL (1.6-2.6); Potassium 3.6 mmol/L (3.5-5.1); Sodium 141 mmol/L (136-145)
[2025-01-13] MEDS: Magnesium 2 GM/50 ML(in water) 2 GM in Premix 1 BAG IVPB SCH (08:18)
[2025-01-13] MEDS ORDERED: Pharmacy to Dose: VANC IVPB PRN (20:05)
[2025-01-13] MEDS: VANCOMYCIN 2 GRAM/400 ML Premix BAG IVPB SCH (22:10)
[2025-01-13] MEDS: Cyclobenzaprine 10 MG TAB PO PRN (23:05)
[2025-01-14 07:48] LABS: Vancomycin, Random 24.9 ug/mL (See Comment)
[2025-01-14 08:04] LABS: #Basophils 0.03 10x3/uL (0.0-0.2); #Eosinophils 0.27 10x3/uL (0.0-0.7); #Monocytes 0.58 10x3/uL (0.11-0.59); #Neutrophils 3.33 10x3/uL (1.40-6.50); %Basophils 0.6 % (0.0-1.0); %Eosinophils 5.7 % (0.0-10.0); %Lymphocytes 10.2 % (21.0-51.0); %Monocytes 12.3 % (0.0-10.0); %Neutrophils 70.8 % (42.0-75.0); Hematocrit 35.3 % (42.0-52.0); Hemoglobin 11.8 g/dL (14.0-18.0); Mean Corpuscular Hemoglobin 30.6 pg (27.0-31.0); Mean Corpuscular Volume 91.7 fL (78.0-98.0); Platelet Count 64 10x3/uL (130-400); Red Blood Cell (RBC) Count 3.85 mill/uL (4.70-6.10); White Blood Cell (WBC) Count 4.71 10x3/uL (4.8-10.8)
[2025-01-14 08:23] LABS: ALT (SGPT) 94 U/L (Less than 45); AST (SGOT) 179 U/L (11-34); Albumin 2.8 g/dL (3.1-4.5); Alkaline Phosphatase 149 U/L (40-110); Anion Gap 15 mmol/L (10-20); BUN (Urea Nitrogen) 27 mg/dL (8.4-25.7); Bilirubin, Total 1.9 mg/dL (0.3-1.2); Calc. Creatinine Clearance 49 mL/min (70-130); Calcium 8.7 mg/dL (7.8-10.44); Carbon Dioxide 22 mmol/L (23-31); Chloride 108 mmol/L (98-107); Globulin 2.7 g/dL (2.4-3.5); Glucose 104 mg/dL (83-110); Magnesium 2.3 mg/dL (1.6-2.6); Potassium 3.8 mmol/L (3.5-5.1); Sodium 141 mmol/L (136-145)
[2025-01-14] MEDS: Acetaminophen/Codeine 30-300mg Tablet PO PRN (11:32)
[2025-01-14] MEDS ORDERED: Vancomycin 1 GM in Premix 1 BAG IVPB SCH (15:00)
[2025-01-14 16:51] VITALS: BP 121/63; TEMP 97.6
[2025-01-15] MEDS ORDERED: Amiodarone 200 MG TAB PO SCH (09:00)
== END 2025-01-14 18:03 | disposition home or self-care (01) | DRG 641 ==
LOC: ERS 17:45 → 2NO 01-12 00:25 → OBSVTOIN 01-12 14:07
PROVIDERS: ADMIT Internal Medicine; ATTEND Internal Medicine
DX: E87.6 Hypokalemia (principal); I50.22 Chronic systolic (congestive) heart failure; I48.91 Unspecified atrial fibrillation; E78.5 Hyperlipidemia, unspecified; M54.2 Cervicalgia; E11.42 Type 2 diabetes mellitus with diabetic polyneuropathy; Z96.641 Presence of right artificial hip joint; I49.5 Sick sinus syndrome; I11.0 Hypertensive heart disease with heart failure; R50.83 Postvaccination fever; G25.81 Restless legs syndrome; I95.9 Hypotension, unspecified; W19.XXXA Unspecified fall, initial encounter; I25.2 Old myocardial infarction; Z95.5 Presence of coronary angioplasty implant and graft; Z90.49 Acquired absence of other specified parts of digestive tract; Z98.890 Other specified postprocedural states; Z87.891 Personal history of nicotine dependence; Z91.048 Other nonmedicinal substance allergy status; Z91.018 Allergy to other foods; Z79.899 Other long term (current) drug therapy; Z79.84 Long term (current) use of oral hypoglycemic drugs; Z79.890 Hormone replacement therapy; Z95.1 Presence of aortocoronary bypass graft; Z95.828 Presence of other vascular implants and grafts; Z79.4 Long term (current) use of insulin; Z79.02 Long term (current) use of antithrombotics/antiplatelets
CPT/HCPCS: 36415; 36416; 51701; 70450; 71260; 72125; 74177; 80048; 80053; 80177; 80202; 81001; 82805; 83605; 83735; 85025; 87040; 87077; 87086; 90471; 90715; 93005; 94760; 96374; 96375; G0378; J1815; J3375; J3475; J3480; Q9967

== ENCOUNTER 2025-02-14 01:57 | Inpatient (IN) | payer MEDICARE ==
[2025-02-14 03:11] VITALS: BMI 24.8
[2025-02-14] MEDS ORDERED: Dextrose 50% Abboject 50 ML SYRINGE SLOW IVP PRN (03:23)
[2025-02-14] MEDS ORDERED: Melatonin 3 MG TAB PO PRN (03:23)
[2025-02-14] MEDS ORDERED: Glucagon 1 MG/ML KIT IM PRN (03:23)
[2025-02-14 05:09] LABS: #Basophils Less than 0.03 10x3/uL (0.0-0.2); #Eosinophils 0.22 10x3/uL (0.0-0.7); #Monocytes 0.42 10x3/uL (0.11-0.59); #Neutrophils 3.25 10x3/uL (1.40-6.50); %Basophils 0.2 % (0.0-1.0); %Eosinophils 4.5 % (0.0-10.0); %Lymphocytes 18.8 % (21.0-51.0); %Monocytes 8.7 % (0.0-10.0); %Neutrophils 67.0 % (42.0-75.0); Hematocrit 38.4 % (42.0-52.0); Hemoglobin 12.7 g/dL (14.0-18.0); Mean Corpuscular Hemoglobin 30.2 pg (27.0-31.0); Mean Corpuscular Volume 91.2 fL (78.0-98.0); Platelet Count 63 10x3/uL (130-400); Red Blood Cell (RBC) Count 4.21 mill/uL (4.70-6.10); White Blood Cell (WBC) Count 4.85 10x3/uL (4.8-10.8)
[2025-02-14 05:24] LABS: Anion Gap 12 mmol/L (10-20); BUN (Urea Nitrogen) 23 mg/dL (8.4-25.7); Calc. Creatinine Clearance 53 mL/min (70-130); Calcium 8.8 mg/dL (7.8-10.44); Carbon Dioxide 27 mmol/L (23-31); Chloride 106 mmol/L (98-107); Glucose 169 mg/dL (83-110); Potassium 3.4 mmol/L (3.5-5.1); Sodium 142 mmol/L (136-145)
[2025-02-14] MEDS: Famotidine 20 MG TAB PO SCH (08:56)
[2025-02-14] MEDS: Aspirin 81 mg Enteric Coated Tablet PO SCH (08:56)
[2025-02-14] MEDS: Nitroglycerin 0.4 MG TAB (25 Tab Bottle) SL PRN (08:58)
[2025-02-14] MEDS: HYDROcodone/Acetaminophen 7.5/325 mg Tablet PO SCH (09:13)
[2025-02-14] MEDS: Mag-Al 1200 mg/1200 mg/30 ML UDCUP PO PRN (19:05)
[2025-02-15 05:04] LABS: #Basophils Less than 0.03 10x3/uL (0.0-0.2); #Eosinophils 0.17 10x3/uL (0.0-0.7); #Monocytes 0.38 10x3/uL (0.11-0.59); #Neutrophils 3.00 10x3/uL (1.40-6.50); %Basophils 0.5 % (0.0-1.0); %Eosinophils 3.9 % (0.0-10.0); %Lymphocytes 17.1 % (21.0-51.0); %Monocytes 8.8 % (0.0-10.0); %Neutrophils 69.0 % (42.0-75.0); Hematocrit 39.8 % (42.0-52.0); Hemoglobin 13.8 g/dL (14.0-18.0); Mean Corpuscular Hemoglobin 30.7 pg (27.0-31.0); Mean Corpuscular Volume 88.6 fL (78.0-98.0); Platelet Count 70 10x3/uL (130-400); Red Blood Cell (RBC) Count 4.49 mill/uL (4.70-6.10); White Blood Cell (WBC) Count 4.34 10x3/uL (4.8-10.8)
[2025-02-15 05:17] LABS: Anion Gap 14 mmol/L (10-20); BUN (Urea Nitrogen) 16 mg/dL (8.4-25.7); Calc. Creatinine Clearance 59 mL/min (70-130); Calcium 8.9 mg/dL (7.8-10.44); Carbon Dioxide 22 mmol/L (23-31); Chloride 107 mmol/L (98-107); Glucose 153 mg/dL (83-110); Potassium 3.7 mmol/L (3.5-5.1); Sodium 139 mmol/L (136-145)
[2025-02-16 04:45] LABS: #Basophils Less than 0.03 10x3/uL (0.0-0.2); #Eosinophils 0.15 10x3/uL (0.0-0.7); #Monocytes 0.35 10x3/uL (0.11-0.59); #Neutrophils 2.66 10x3/uL (1.40-6.50); %Basophils 0.5 % (0.0-1.0); %Eosinophils 3.8 % (0.0-10.0); %Lymphocytes 19.2 % (21.0-51.0); %Monocytes 8.8 % (0.0-10.0); %Neutrophils 67.2 % (42.0-75.0); Hematocrit 38.9 % (42.0-52.0); Hemoglobin 13.4 g/dL (14.0-18.0); Mean Corpuscular Hemoglobin 31.2 pg (27.0-31.0); Mean Corpuscular Volume 90.7 fL (78.0-98.0); Platelet Count 70 10x3/uL (130-400); Red Blood Cell (RBC) Count 4.29 mill/uL (4.70-6.10); White Blood Cell (WBC) Count 3.96 10x3/uL (4.8-10.8)
[2025-02-16 04:56] LABS: Anion Gap 13 mmol/L (10-20); BUN (Urea Nitrogen) 17 mg/dL (8.4-25.7); Calc. Creatinine Clearance 62 mL/min (70-130); Calcium 9.1 mg/dL (7.8-10.44); Carbon Dioxide 23 mmol/L (23-31); Chloride 109 mmol/L (98-107); Glucose 151 mg/dL (83-110); Potassium 3.6 mmol/L (3.5-5.1); Sodium 141 mmol/L (136-145)
[2025-02-16] MEDS: Ondansetron PF 4 MG/2 ML Vial IVP PRN (13:51)
[2025-02-16] MEDS ORDERED: CEFAZOLIN 2 GM VIAL ONE (15:59)
[2025-02-16] MEDS ORDERED: Lidocaine 1% (PF) 30 ML VIAL ONE (16:35)
[2025-02-16] MEDS ORDERED: Acetaminophen 325 MG TAB PO PRN (18:07)
[2025-02-16] MEDS: Cephalexin 250 MG CAP PO SCH (20:51)
[2025-02-16] MEDS: Acetaminophen 325 MG TAB PO PRN (22:15)
[2025-02-17] MEDS: HYDROmorphone 0.5 MG/0.5 ML SYRINGE SLOW IVP SCH (04:11)
[2025-02-17 07:09] LABS: Chloride 109 mmol/L (98-107); Potassium 4.1 mmol/L (3.5-5.1); Sodium 141 mmol/L (136-145)
[2025-02-17 07:10] LABS: Calcium 9.2 mg/dL (7.8-10.44); Glucose 122 mg/dL (83-110)
[2025-02-17 07:11] LABS: Anion Gap 16 mmol/L (10-20); Carbon Dioxide 20 mmol/L (23-31)
[2025-02-17 07:14] LABS: BUN (Urea Nitrogen) 16 mg/dL (8.4-25.7); Calc. Creatinine Clearance 72 mL/min (70-130)
[2025-02-17 07:15] LABS: Magnesium 2.1 mg/dL (1.6-2.6)
[2025-02-17 08:23] VITALS: TEMP 98
[2025-02-17] MEDS ORDERED: HYDROcodone/Acetaminophen 5/325 mg Tablet PO PRN (10:55)
[2025-02-17 11:36] VITALS: BP 158/80
[2025-02-17] MEDS: Ketorolac Tromethamine 30 MG (1 mL) VIAL IVP SCH (12:22)
[2025-02-17] MEDS ORDERED: Famotidine 20 MG TAB PO SCH (21:00)
== END 2025-02-17 16:21 | disposition home or self-care (01) | DRG 313 ==
LOC: OBS 03:07 → OBSVTOIN 02-15 13:20
PROVIDERS: ADMIT Student in an Organized Health Care Education/Training Program; ATTEND Hospitalist
DX: R07.9 Chest pain, unspecified (principal); I50.22 Chronic systolic (congestive) heart failure; I13.0 Hypertensive heart and chronic kidney disease with heart failure and stage 1 through stage 4 chronic kidney disease, or unspecified chronic kidney disease; Z88.8 Allergy status to other drugs, medicaments and biological substances; Z91.018 Allergy to other foods; E78.5 Hyperlipidemia, unspecified; Z98.890 Other specified postprocedural states; D64.9 Anemia, unspecified; E03.9 Hypothyroidism, unspecified; Z95.1 Presence of aortocoronary bypass graft; E11.40 Type 2 diabetes mellitus with diabetic neuropathy, unspecified; I48.0 Paroxysmal atrial fibrillation; D69.6 Thrombocytopenia, unspecified; N18.2 Chronic kidney disease, stage 2 (mild); I49.5 Sick sinus syndrome
CPT/HCPCS: 33208; 36415; 36416; 36430; 71045; 80048; 83735; 85025; 86850; 86900; 86901; 93005; 93010; 99152; 99153; C1785; C1898; J1171; J1580; J1815; J1885; J2003; J2250; J2270; J2272; J2405; J3010; P9035

== ENCOUNTER 2025-02-17 23:59 | Inpatient (IN) | payer MEDICARE ==
[2025-02-18] MEDS ORDERED: Ondansetron PF 4 MG/2 ML Vial ONE (00:25)
[2025-02-18 00:29] LABS: #Basophils Less than 0.03 10x3/uL (0.0-0.2); #Eosinophils 0.14 10x3/uL (0.0-0.7); #Monocytes 0.44 10x3/uL (0.11-0.59); #Neutrophils 3.83 10x3/uL (1.40-6.50); %Basophils 0.4 % (0.0-1.0); %Eosinophils 2.8 % (0.0-10.0); %Lymphocytes 12.2 % (21.0-51.0); %Monocytes 8.7 % (0.0-10.0); %Neutrophils 75.3 % (42.0-75.0); Hematocrit 44.8 % (42.0-52.0); Hemoglobin 14.8 g/dL (14.0-18.0); Mean Corpuscular Hemoglobin 30.3 pg (27.0-31.0); Mean Corpuscular Volume 91.8 fL (78.0-98.0); Platelet Count 86 10x3/uL (130-400); Red Blood Cell (RBC) Count 4.88 mill/uL (4.70-6.10); White Blood Cell (WBC) Count 5.08 10x3/uL (4.8-10.8)
[2025-02-18] MEDS ORDERED: Metoclopramide HCl 10 MG (2 mL) VIAL ONE (00:42)
[2025-02-18 00:43] LABS: ALT (SGPT) 51 U/L (Less than 45); AST (SGOT) 50 U/L (11-34); Albumin 3.9 g/dL (3.1-4.5); Alkaline Phosphatase 95 U/L (40-110); Anion Gap 17 mmol/L (10-20); BUN (Urea Nitrogen) 18 mg/dL (8.4-25.7); Bilirubin, Total 1.5 mg/dL (0.3-1.2); Calc. Creatinine Clearance 0 mL/min (70-130); Calcium 9.5 mg/dL (7.8-10.44); Carbon Dioxide 21 mmol/L (23-31); Chloride 105 mmol/L (98-107); Globulin 3.2 g/dL (2.4-3.5); Glucose 127 mg/dL (83-110); Potassium 4.1 mmol/L (3.5-5.1); Sodium 139 mmol/L (136-145)
[2025-02-18] MEDS ORDERED: Magnesium 2 GM/50 ML BAG (IN WATER) ONE (02:01)
[2025-02-18] MEDS ORDERED: Glucagon 1 MG/ML KIT IM PRN (02:33)
[2025-02-18] MEDS ORDERED: Dextrose 50% Abboject 50 ML SYRINGE SLOW IVP PRN (02:33)
[2025-02-18] MEDS ORDERED: Acetaminophen 325 MG TAB PO PRN (02:34)
[2025-02-18] MEDS ORDERED: Ondansetron PF 4 MG/2 ML Vial IVP PRN (02:34)
[2025-02-18] MEDS ORDERED: Calcium Carbonate 500 MG ChewTAB PO PRN (02:34)
[2025-02-18] MEDS ORDERED: Electrolyte Replacement Protocol 1 EACH FS SCH (02:45)
[2025-02-18] MEDS ORDERED: Potassium Chloride 20 MEQ in Premix 1 BAG IVPB PRN (02:45)
[2025-02-18] MEDS ORDERED: PHOS-NAK 1 PKT PACK PO PRN (02:45)
[2025-02-18] MEDS ORDERED: Magnesium 2 GM/50 ML(in water) 2 GM in Premix 1 BAG IVPB PRN (02:45)
[2025-02-18 03:05] LABS: Bacteria/HPF None Seen HPF (None Seen); CAUTI Indications for Culture Alt mental st,lethar; Glucose, Urine (Dipstick) Greater than 1000 mg/dL (Negative); Leukocyte Negative Leu/uL (Negative); Protein, Urine (Dipstick) 70 mg/dL (Neg-Trace); RBC/HPF 0-3 HPF (0-3); WBC/HPF 0-3 HPF (0-3)
[2025-02-18 03:14] LABS: Specific Gravity, Urine Greater than 1.036 (1.002-1.036)
[2025-02-18 03:15] LABS: Urine Culture Reflex No No
[2025-02-18 03:38] LABS: #Basophils Less than 0.03 10x3/uL (0.0-0.2); #Eosinophils 0.14 10x3/uL (0.0-0.7); #Monocytes 0.49 10x3/uL (0.11-0.59); #Neutrophils 4.47 10x3/uL (1.40-6.50); %Basophils 0.2 % (0.0-1.0); %Eosinophils 2.4 % (0.0-10.0); %Lymphocytes 10.6 % (21.0-51.0); %Monocytes 8.5 % (0.0-10.0); %Neutrophils 77.6 % (42.0-75.0); Hematocrit 41.9 % (42.0-52.0); Hemoglobin 14.5 g/dL (14.0-18.0); Mean Corpuscular Hemoglobin 31.3 pg (27.0-31.0); Mean Corpuscular Volume 90.3 fL (78.0-98.0); Platelet Count 78 10x3/uL (130-400); Red Blood Cell (RBC) Count 4.64 mill/uL (4.70-6.10); White Blood Cell (WBC) Count 5.76 10x3/uL (4.8-10.8)
[2025-02-18 03:45] LABS: ALT (SGPT) 45 U/L (Less than 45); AST (SGOT) 40 U/L (11-34); Albumin 3.7 g/dL (3.1-4.5); Alkaline Phosphatase 93 U/L (40-110); Anion Gap 19 mmol/L (10-20); BUN (Urea Nitrogen) 16 mg/dL (8.4-25.7); Bilirubin, Total 1.4 mg/dL (0.3-1.2); Calc. Creatinine Clearance 0 mL/min (70-130); Calcium 9.0 mg/dL (7.8-10.44); Carbon Dioxide 16 mmol/L (23-31); Chloride 106 mmol/L (98-107); Globulin 2.9 g/dL (2.4-3.5); Glucose 139 mg/dL (83-110); Potassium 3.9 mmol/L (3.5-5.1); Sodium 137 mmol/L (136-145)
[2025-02-18 04:01] VITALS: BMI 24.0
[2025-02-18] MEDS: Isosorbide Mononitrate 30 MG ER.TAB.S PO SCH (09:23)
[2025-02-18] MEDS: Pantoprazole 40 MG DR.TAB PO SCH (09:23)
[2025-02-18] MEDS: Cephalexin 250 MG CAP PO SCH (09:24)
[2025-02-18] MEDS: Aspirin Chewable 81 MG TAB PO SCH (09:24)
[2025-02-18] MEDS: Amiodarone 200 MG TAB PO SCH (09:24)
[2025-02-18] MEDS: Insulin Glargine 30 UNITS/0.3 ML VIAL SC SCH (09:25)
[2025-02-18] MEDS: HYDROcodone/Acetaminophen 5/325 mg Tablet PO PRN (10:40)
[2025-02-18] MEDS ORDERED: Iopamidol 370 76% 100 ML VIAL ONE (11:44)
[2025-02-18] MEDS: Rosuvastatin 20 MG TAB PO SCH (20:37)
[2025-02-18] MEDS: Gabapentin 300 MG CAP PO SCH (20:37)
[2025-02-19 04:21] LABS: #Basophils Less than 0.03 10x3/uL (0.0-0.2); #Eosinophils 0.25 10x3/uL (0.0-0.7); #Monocytes 0.40 10x3/uL (0.11-0.59); #Neutrophils 2.67 10x3/uL (1.40-6.50); %Basophils 0.5 % (0.0-1.0); %Eosinophils 6.2 % (0.0-10.0); %Lymphocytes 16.0 % (21.0-51.0); %Monocytes 10.0 % (0.0-10.0); %Neutrophils 66.6 % (42.0-75.0); Hematocrit 39.0 % (42.0-52.0); Hemoglobin 12.9 g/dL (14.0-18.0); Mean Corpuscular Hemoglobin 30.7 pg (27.0-31.0); Mean Corpuscular Volume 92.9 fL (78.0-98.0); Platelet Count 90 10x3/uL (130-400); Red Blood Cell (RBC) Count 4.20 mill/uL (4.70-6.10); White Blood Cell (WBC) Count 4.01 10x3/uL (4.8-10.8)
[2025-02-19 04:31] LABS: ALT (SGPT) 34 U/L (Less than 45); AST (SGOT) 28 U/L (11-34); Albumin 3.5 g/dL (3.1-4.5); Alkaline Phosphatase 77 U/L (40-110); Anion Gap 17 mmol/L (10-20); BUN (Urea Nitrogen) 17 mg/dL (8.4-25.7); Bilirubin, Total 1.2 mg/dL (0.3-1.2); Calc. Creatinine Clearance 63 mL/min (70-130); Calcium 8.9 mg/dL (7.8-10.44); Carbon Dioxide 19 mmol/L (23-31); Chloride 107 mmol/L (98-107); Globulin 2.5 g/dL (2.4-3.5); Glucose 99 mg/dL (83-110); Potassium 3.7 mmol/L (3.5-5.1); Sodium 139 mmol/L (136-145)
[2025-02-20 06:43] LABS: ALT (SGPT) 29 U/L (Less than 45); AST (SGOT) 34 U/L (11-34); Albumin 3.5 g/dL (3.1-4.5); Alkaline Phosphatase 78 U/L (40-110); Anion Gap 15 mmol/L (10-20); BUN (Urea Nitrogen) 24 mg/dL (8.4-25.7); Bilirubin, Total 1.0 mg/dL (0.3-1.2); Calc. Creatinine Clearance 45 mL/min (70-130); Calcium 9.0 mg/dL (7.8-10.44); Carbon Dioxide 23 mmol/L (23-31); Chloride 106 mmol/L (98-107); Globulin 3.1 g/dL (2.4-3.5); Glucose 129 mg/dL (83-110); Potassium 3.6 mmol/L (3.5-5.1); Sodium 140 mmol/L (136-145)
[2025-02-20 06:47] LABS: #Basophils Less than 0.03 10x3/uL (0.0-0.2); #Eosinophils 0.28 10x3/uL (0.0-0.7); #Monocytes 0.74 10x3/uL (0.11-0.59); #Neutrophils 4.10 10x3/uL (1.40-6.50); %Basophils 0.3 % (0.0-1.0); %Eosinophils 4.8 % (0.0-10.0); %Lymphocytes 11.3 % (21.0-51.0); %Monocytes 12.7 % (0.0-10.0); %Neutrophils 70.2 % (42.0-75.0); Hematocrit 40.2 % (42.0-52.0); Hemoglobin 13.7 g/dL (14.0-18.0); Mean Corpuscular Hemoglobin 30.9 pg (27.0-31.0); Mean Corpuscular Volume 90.7 fL (78.0-98.0); Platelet Count 93 10x3/uL (130-400); Red Blood Cell (RBC) Count 4.43 mill/uL (4.70-6.10); White Blood Cell (WBC) Count 5.84 10x3/uL (4.8-10.8)
[2025-02-20 15:02] VITALS: BP 109/64; TEMP 97.9
== END 2025-02-20 15:25 | disposition home or self-care (01) | DRG 69 ==
LOC: ERS 23:59 → 2NO 02-18 02:40
PROVIDERS: ADMIT Student in an Organized Health Care Education/Training Program; ATTEND Student in an Organized Health Care Education/Training Program
PROC: XX20X89 Monitoring of Brain Electrical Activity, Computer-aided Detection and Notification, New Technology Group 9 (ICD-10-PCS; principal; 2025-02-18)
DX: G45.9 Transient cerebral ischemic attack, unspecified (principal); G93.41 Metabolic encephalopathy; I13.0 Hypertensive heart and chronic kidney disease with heart failure and stage 1 through stage 4 chronic kidney disease, or unspecified chronic kidney disease; I50.22 Chronic systolic (congestive) heart failure; N17.9 Acute kidney failure, unspecified; I25.10 Atherosclerotic heart disease of native coronary artery without angina pectoris; E03.9 Hypothyroidism, unspecified; E78.5 Hyperlipidemia, unspecified; Z91.018 Allergy to other foods; Z88.8 Allergy status to other drugs, medicaments and biological substances; Z98.890 Other specified postprocedural states; Z95.0 Presence of cardiac pacemaker; I45.5 Other specified heart block; D69.6 Thrombocytopenia, unspecified; Z95.1 Presence of aortocoronary bypass graft; F41.9 Anxiety disorder, unspecified; Z87.891 Personal history of nicotine dependence; I25.2 Old myocardial infarction; Z79.899 Other long term (current) drug therapy; I48.0 Paroxysmal atrial fibrillation; M54.89 Other dorsalgia; N18.9 Chronic kidney disease, unspecified; Z79.82 Long term (current) use of aspirin; Z79.890 Hormone replacement therapy; G25.81 Restless legs syndrome; Z95.5 Presence of coronary angioplasty implant and graft; Z90.49 Acquired absence of other specified parts of digestive tract; Z96.641 Presence of right artificial hip joint; Z95.818 Presence of other cardiac implants and grafts; Z98.1 Arthrodesis status; E11.42 Type 2 diabetes mellitus with diabetic polyneuropathy; E11.22 Type 2 diabetes mellitus with diabetic chronic kidney disease; M54.9 Dorsalgia, unspecified; G89.29 Other chronic pain; D50.9 Iron deficiency anemia, unspecified
CPT/HCPCS: 36415; 36416; 70450; 70496; 70498; 70553; 71045; 80053; 81001; 83605; 83880; 84484; 85025; 87040; 87086; 93005; 93010; 94760; 95700; 95711; 95957; 96365; 96374; 96375; J1815; J2405; J2765; J3475; Q9967